=== PATIENT | female | born 1995 | race Caucasian/White ===

== ENCOUNTER → 2017-02-14 | Outpatient (CLI) | payer MEDICAID ==
[~2017-02-14] MED LIST: ALBUTEROL-200 PUFFS/ IH; AMITRIPTYLINE25 MG PO; CEPHALEXIN500 MG PO; CLARITIN 10MG T10 MG PO; CORTISPORIN TC10 ML OT; ESCITALOPRAM 2020 MG PO; FLEXERIL10 MG PO; FLONASE 50 MCG16 GM; HYDROXYZINE PAM25 MG PO; IBUPROFEN800 MG PO; KEFLEX 500MG.500 MG PO; LEVSIN0.125 M1 PO; LORATADINE 10MG10 M1 PO; MACROBID 100MG100 M1 PO; MOTRIN 400MG.400 MG PO; NASONEX0.05 MG/AC NS; PRENATAL PLUS1 TA1 PO; PRILOSEC40 MG PO; QVAR0.04 MG/AC IH; SINGULAIR 10 MG10 MG PO; SINGULAIR10 MG PO; TYLENOL W/CODEI1 TA2 PO; VOLTAREN75 M1 PO; ZITHROMAX TRI-500 M1 PO; ZITHROMAX Z-PA250 M2 PO; ZOFRAN ODT4 MG PO; ZOFRAN4 MG PO
--- NOTE | 2017-02-14 20:13 | RADIOLOGY REPORT PS360 ---
EXAM: LUMBAR SPINE 5 VIEWS HISTORY: LOW BACK PAIN ORDERING PHYSICIAN: Raul Dickson MD PATIENT AGE: 21 years COMPARISON: None FINDINGS: Normal alignment. No fracture or dislocation. No lytic or blastic change. No significant degenerative change. The disc spaces are preserved. IMPRESSION: Negative lumbar spine
== END ==
LOC: RAD 17:37
DX: M54.9 Dorsalgia, unspecified (principal)

== ENCOUNTER 2017-06-03 10:22 | Emergency (ER) | payer MEDICAID ==
[~2017-06-03] VITALS: Ht 157.5 cm; Wt 59.0 kg
[~2017-06-03 10:22] MED LIST changes: +MEDROL 4MG. DOSE4 MG PO; +MINOCYCLINE 10100 MG PO; +PERIDEX OR1 DOSE/473 PO; +PYRIDIUM200 M2 PO; +TRIAMCINOL30 GM/TUBE TP
--- NOTE | 2017-06-03 11:07 | Urgent Treatment Center Report ---
History of Present Issue Date/Time Seen by Provider 06/03/17 1106 Visit Reason Pt arrived:Walked Presenting Problem:PT C/O OF HEAD AND CHEST CONGESTION ALONG WITH SINUS PRESSURE Location if Accident: Onset of symptoms date/time:06/01/1705/10/1600 or onset unknown for: Have you (or family members/close friends) recently traveled outside the [place]? N If Yes, where/when: Have you had exposure to infectious disease within the past month? TB? Other? Specify: Patient state that she has head and chest congestion States that she has been having sinus pain and pressure and it is draining down the back of her throat making her throat sore. States that she is blowing out greenish colored "snot" and having a hacky cough at night States that she took some over the counter medication but it has not helped ALLERGIES Coded Allergies: No Known Allergies (09/01/16) Home Medications Active Scripts CHLORHEXIDINE GLUCONATE (PERIDEX 0.12% ORAL RINSE) 1 DOSE PO TID #1 BOT Prov: 05/23/17 History Medical History General CAD? No Angina: No ID: No Hypertension? No Hyperlipidemia? No CHF? No DVT? No PE? No COPD? No Asthma? Yes Anemia? No GERD? No Gastric ulcers? No GI Bleed? No Hernia? No Thyroid Problems? No Hypothyroidism? No CVA? No Seizures? Yes Diabetes? No Renal Insuffiency? No UTI? No Stones? No BPH? No GB Disease: No Nephritic Syndrome? No Asplenia? No Hepatitis? No Sickle Cell Disease? No Arthritis? No Migraines? Yes Cataracts? No Glaucoma? No MRSA? No HIV? No TB? No Anxiety? No Depression? No Cancer? No More? 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 Respiratory cough Physical Exam Vital Signs Vital Signs Date Time Temp Pulse Resp B/P Pulse O2 O2 Flow FiO2 Ox Delivery Rate 06/03 1043 98.0 98 20 124/83 98 General Appearance Patient appears ill, nose red sitting on exam table Ear, Nose, Throat sinus pain/drainage, nasal congestion, Tenderness noted over frontal sinuses, green drainage noted, throat pink drainage noted Respiratory Status Yes: trachea midline, chest symmetrical, non tender chest. No: respiratory distress. 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 No Departure Departure Time of Disposition 1117 Disposition DC Home or Self Care(routine) Clinical Impression Primary Impression: Sinusitis Qualifiers: Sinusitis location: frontal Chronicity: unspecified Qualified Code: J32.1 - Chronic frontal sinusitis Condition STABLE Referrals Randolph BRIGHT,Raul Mccoy (Family) Patient Instructions DI for Sinusitis, Sinus Headache, Sinusitis Additional Instructions * Monitor Temp. Tylenol and/or Ibuprofen as needed. ER if fever is no less than 101 despite alternating Tylenol and Ibuprofen * Encourage fluids, water, Gatorade, powerade, pedialyte if /toddler/or child * Warm salt water gargles for throat irritation *Warm fluids *Sore throat lozenges *Sleep elevated *humidifier or vaporizer *Flonase 2 sprays each nostril daily but may take 2-3 days to notice improvement with it *Bromfed may cause drowsiness. Know how it effect you or your child. Before driving, caring for small children or sending your child to school Follow up IMMEDIATELY for new or worsening of symptoms OR no noticeable improvement over the next 48-72 hours. 911 immediately for any life threatening symptoms such as chest pain or difficulty breathing Discharge Counseling Counseled pt/family regarding diagnosis, medications/RX, home care, follow up needs Prescriptions Current Visit Scripts Amoxicillin/Potassium Clav (Augmentin 875-125 Tablet) 1 EACH PO BID #14 TAB D-METHORPHAN HB/P-EPD HCL/BPM (Bromfed Dm Cough Syrup) 10 ML PO Q4 #120 SYR Fluticasone Propionate (Flonase 50 Mcg Nasal [place]) 2 SPRAY NA DAILY #1 BOT Methylprednisolone (Medrol Dose Andres) 4 MG PO UD #1 ANDRES TAKE DIRECTED ON PACKAGING at 1111
[2017-06-03] MEDS ORDERED: AUGMENTIN 875-1 EACH PO (11:19)
[2017-06-03] MEDS ORDERED: MEDROL 4MG. DOSE4 MG PO (11:19)
[2017-06-03] MEDS ORDERED: FLONASE 50 MCG16 GM (11:19)
[2017-06-03] MEDS ORDERED: BROMFED DM COU118 ML PO (11:19)
[2017-06-03 11:23] VITALS: BP 124/83
== END 2017-06-03 11:24 | disposition home or self-care (01) ==
LOC: UTC 10:22
DX: J32.1 Chronic frontal sinusitis (principal)

== ENCOUNTER 2017-06-07 15:29 | Emergency (ER) | payer MEDICAID ==
[~2017-06-07] VITALS: Ht 157.5 cm; Wt 65.8 kg
[~2017-06-07 15:29] MED LIST changes: +AUGMENTIN 875-1 EACH PO; +BROMFED DM COU118 ML PO
[2017-06-07 15:46] VITALS: BP 145/88
[2017-06-07] MEDS ORDERED: ZITHROMAX Z PA250 MG PO (15:53)
--- NOTE | 2017-06-07 15:54 | Urgent Treatment Center Report ---
History of Present Issue Date/Time Seen by Provider 06/07/17 4031 Visit Reason Pt arrived:Walked Presenting Problem:CONGESTION AND COUGHFOR A FEW DAYS Location if Accident: Onset of symptoms date/time:/ or onset unknown for:MEDICAL HX UNKNOWN Have you (or family members/close friends) recently traveled outside the [place]? N If Yes, where/when: Have you had exposure to infectious disease within the past month? TB? Other? Specify: Patient states that she is currently on medication States that she was seen and treated for sinus pain and pressure and states that it has now moved into her chest area States that she has been coughing States that sometimes it is productive and sometimes not ALLERGIES Coded Allergies: No Known Allergies (09/01/16) Home Medications Active Scripts Amoxicillin/Potassium Clav (Augmentin 875-125 Tablet) 1 EACH PO BID #14 TAB Prov: 06/03/17 D-METHORPHAN HB/P-EPD HCL/BPM (Bromfed Dm Cough Syrup) 10 ML PO Q4 #120 SYR Prov: 06/03/17 Fluticasone Propionate (Flonase 50 Mcg Nasal [place]) 2 SPRAY NA DAILY #1 BOT Prov: 06/03/17 Methylprednisolone (Medrol Dose Andres) 4 MG PO UD #1 ANDRES Prov: 06/03/17 CHLORHEXIDINE GLUCONATE (PERIDEX 0.12% ORAL RINSE) 1 DOSE PO TID #1 BOT Prov: 05/23/17 History Medical History General CAD? No Angina: No [place]: No Hypertension? No Hyperlipidemia? No CHF? No DVT? No PE? No COPD? No Asthma? Yes Anemia? No GERD? No Gastric ulcers? No GI Bleed? No Hernia? No Thyroid Problems? No Hypothyroidism? No CVA? No Seizures? Yes Diabetes? No Renal Insuffiency? No UTI? No Stones? No BPH? No GB Disease: No Nephritic Syndrome? No Asplenia? No Hepatitis? No Sickle Cell Disease? No Arthritis? No Migraines? Yes Cataracts? No Glaucoma? No MRSA? No HIV? No TB? No Anxiety? No Depression? No Cancer? No More? 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 No: respiratory distress. 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 No Departure Departure Time of Disposition 1551 Disposition DC Home or Self Care(routine) Clinical Impression Primary Impression: Upper respiratory infection Qualifiers: URI type: unspecified URI Qualified Code: J06.9 - Acute upper respiratory infection, unspecified Condition STABLE Referrals Randolph BRIGHT,Raul Mccoy (Family) Additional Instructions Follow up with family doctor Return if needed Stop taking Augmentin and start taking the Azithromycin * Monitor Temp. Tylenol and/or Ibuprofen as needed. ER if fever is no less than 101 despite alternating Tylenol and Ibuprofen * Encourage fluids, water, Gatorade, powerade, pedialyte if infant/toddler/or child * Warm salt water gargles for throat irritation *Warm fluids *Sore throat lozenges *Sleep elevated *humidifier or vaporizer Follow up IMMEDIATELY for new or worsening of symptoms OR no noticeable improvement over the next 48-72 hours. 911 immediately for any life threatening symptoms such as chest pain or difficulty breathing Prescriptions Current Visit Scripts Azithromycin (Zithromycin (Z-ANDRES) 250MG Tab) 250 MG PO DAILY #6 TAB TAKE TWO (2) TABLETS ON DAY 1, THEN ONE (1) TABLET DAY #2 THRU #5 at 1553
== END 2017-06-07 15:58 | disposition home or self-care (01) ==
LOC: UTC 15:29
DX: J06.9 Acute upper respiratory infection, unspecified (principal); F17.210 Nicotine dependence, cigarettes, uncomplicated

== ENCOUNTER 2017-06-08 07:56 | Emergency (ER) | payer MEDICAID ==
[~2017-06-08] VITALS: Ht 157.5 cm; Wt 65.8 kg
[~2017-06-08 07:56] MED LIST changes: +ZITHROMAX Z PA250 MG PO
--- NOTE | 2017-06-08 08:19 | Emergency Room Report ---
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 N Clinical Suspician of Infection? N Mental Status: 1 - Regular (Normal Baseline) Sepsis Risk:Low Sepsis Risk Have you (or family members/close friends) recently traveled outside the [place]? N If Yes, where/when: Have you had exposure to infectious disease within the past month? N TB? Other? Specify: Patient states she ate fries and a hoagie from [employer] last night and a poptart this morning, and has RUQ abdominal pain radiating to her back with nausea. No blood from above or below. States she has been vomiting, but declines anything for nausea or vomiting. No diarrhea. She has had recent congestion for which she has been seen twice at the [facility] and is newly on Zithromax, after stopping Augmentin. She completed a medrol dosepak two days ago. Her cough is better, as is the congestion. She has no fever. Her sister has undergone cholecystectomy. ALLERGIES Coded Allergies: No Known Allergies (09/01/16) Home Medications Active Scripts D-METHORPHAN HB/P-EPD HCL/BPM (Bromfed Dm Cough Syrup) 10 ML PO Q4 #120 SYR Prov: 06/03/17 Fluticasone Propionate (Flonase 50 Mcg Nasal [place]) 2 SPRAY NA DAILY #1 BOT Prov: 06/03/17 Methylprednisolone (Medrol Dose Andres) 4 MG PO UD #1 ANDRES Prov: 06/03/17 Azithromycin (Zithromycin (Z-ANDRES) 250MG Tab) 250 MG PO DAILY #6 TAB Prov: 06/07/17 CHLORHEXIDINE GLUCONATE (PERIDEX 0.12% ORAL RINSE) 1 DOSE PO TID #1 BOT Prov: 05/23/17 History Medical History General CAD? No Angina: No [place]: No Hypertension? No Hyperlipidemia? No CHF? No DVT? No PE? No COPD? No Asthma? Yes Anemia? No GERD? No Gastric ulcers? No GI Bleed? No Hernia? No Thyroid Problems? No Hypothyroidism? No CVA? No Seizures? Yes Diabetes? No Renal Insuffiency? No End Stage Renal Disease? No UTI? No Stones? No BPH? No GB Disease: No Nephritic Syndrome? No Asplenia? No Hepatitis? No Sickle Cell Disease? No Arthritis? No Migraines? Yes Cataracts? No Glaucoma? No MRSA? No HIV? No TB? No Anxiety? No Depression? No Cancer? No More? 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 Respiratory denies no symptoms reported, denies see HPI Gastrointestinal see HPI Physical Exam Vital Signs Vital Signs Date Time Temp Pulse Resp B/P Pulse O2 O2 Flow FiO2 Ox Delivery Rate 06/08 0805 97.8 100 18 129/91 98 General Appearance normal appearance, WD/WN, no apparent distress Eye Exam - bilateral eye normal exam, bilateral eye PERRL, bilateral eye EOMI Neck normal inspection, non-tender, supple, full range of motion Respiratory Status Yes: trachea midline, chest symmetrical, non tender chest. No: respiratory distress, tender on palpation, use of accessory muscles, pain on inspiration, pain on expiration, productive cough, non productive cough. Lung Sounds bilateral: normal breath sounds, lungs clear. Cardiovascular normal exam, regular rate/rhythm, no peripheral edema, no gallop, no JVD, no murmur, no rub, normal peripheral pulses Gastrointestinal normal bowel sounds, normal exam, soft, no organomegaly, no pulsatile mass, no guarding, no rebound (neg Ward's) Back no CVA tenderness, bowel/bladder continent, gait normal Extremities normal range of motion Strength 5 Upper Ext (L), 5 Upper Ext (R), 5 Lower Ext (L), 5 Lower Ext (R) Neurologic alert, normal exam, no motor/sensory deficits, oriented x 3 Glascow Coma Scale Glascow Coma Scale Response Value EYE response: 4 Spontaneously 4 MOTOR response: 6 OBEYS 6 VERBAL response: 5 Oriented & Converses 5 Total 15 Skin intact, normal color, warm/dry Medical Decision Making LABS/Meds/Orders Pt receiving controlled substance in ED? No Results/Orders Laboratory Tests 06/08/17819: Urine Color YELLOW, Urine Appearance SL CLOUDY, Urine pH 6.5, Ur Specific Doyle >= 1.030, Urine Protein NEGATIVE, Urine Ketones NEGATIVE, Urine Blood NEGATIVE, Urine Nitrate NEGATIVE, Urine Bilirubin NEGATIVE, Urine Urobilinogen 0.2, Ur Leukocyte Esterase TRACE H, Urine WBC 3-5, Ur Squamous Epith Cells TNTC , Urine Bacteria 3+, Urine Yeast 1+, Urine Glucose NEGATIVE 06/08/17814: Sodium 140, Potassium 3.3 L, Chloride 105, Carbon Dioxide 27, BUN 9, Creatinine 0.6, Estimated Creat Clear 155, Estimated GFR (MDRD) 127, Glucose 92, Calcium 8.8, Total Bilirubin 0.3, AST 11 L, ALT 23, Alkaline Phosphatase 101, Total Protein 7.0, Albumin 3.8, Globulin 3.2, Albumin/Globulin Ratio 1.2, Lipase 110, WBC 9.0, RBC 4.76, Hgb 13.6, Hct 39.8, MCV 83.5, RDW 12.5, Plt Count 286, MPV 8.1, Gran % 69.7, Gran # 6.2, Lymphocytes % 21.2, Monocytes % 5.7, Eosinophils % 2.8, Basophils % 0.6, Lymphocytes # 1.9, Monocytes # 0.5, Eosinophils # 0.3, Basophils # 0.1, PUBS MCHC 34.2, MCH 28.6 Orders Procedure Date/time Status CULTURE, URINE 06/08 820 Active LIPASE 06/08 815 Complete CBC WITH AUTO DIFF 06/08 815 Complete CHEM 12 PROFILE 06/08 815 Complete URINALYSIS/COMPLETE 06/08 811 Complete URINE 06/08 811 Complete Departure Departure Time of Disposition 920 Disposition DC Home or Self Care(routine) Clinical Impression Primary Impression: Abdominal pain Qualifiers: Abdominal location: right upper quadrant Qualified Code: R10.11 - Right upper quadrant pain Condition STABLE Referrals Randolph BRIGHT,Raul Mccoy (Family) Patient Instructions Acute Abdominal Pain Additional Instructions Recommend low fat diet; see Dr. Dickson for follow up recheck in one to three days; clear liquids overnight other than recommend eating a few crackers when dosing the Zithromax; recommend a few spoonfuls of yogurt (check that it has live cultures) several times daily for the next few weeks due to multiple antibiotics and steroids, which can remove the friendly bacteria from the gut. ED Critical Care Critical Care No at 0951
--- NOTE | 2017-06-08 08:19 | Emergency Room Report ---
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 N Clinical Suspician of Infection? N Mental Status: 1 - Regular (Normal Baseline) Sepsis Risk:Low Sepsis Risk Have you (or family members/close friends) recently traveled outside the [place]? N If Yes, where/when: Have you had exposure to infectious disease within the past month? N TB? Other? Specify: Patient states she ate fries and a hoagie from [employer] last night and a poptart this morning, and has RUQ abdominal pain radiating to her back with nausea. No blood from above or below. States she has been vomiting, but declines anything for nausea or vomiting. No diarrhea. She has had recent congestion for which she has been seen twice at the [facility] and is newly on Zithromax, after stopping Augmentin. She completed a medrol dosepak two days ago. Her cough is better, as is the congestion. She has no fever. Her sister has undergone cholecystectomy. ALLERGIES Coded Allergies: No Known Allergies (09/01/16) Home Medications Active Scripts D-METHORPHAN HB/P-EPD HCL/BPM (Bromfed Dm Cough Syrup) 10 ML PO Q4 #120 SYR Prov: 06/03/17 Fluticasone Propionate (Flonase 50 Mcg Nasal [place]) 2 SPRAY NA DAILY #1 BOT Prov: 06/03/17 Methylprednisolone (Medrol Dose Andres) 4 MG PO UD #1 ANDRES Prov: 06/03/17 Azithromycin (Zithromycin (Z-ANDRES) 250MG Tab) 250 MG PO DAILY #6 TAB Prov: 06/07/17 CHLORHEXIDINE GLUCONATE (PERIDEX 0.12% ORAL RINSE) 1 DOSE PO TID #1 BOT Prov: 05/23/17 History Medical History General CAD? No Angina: No [place]: No Hypertension? No Hyperlipidemia? No CHF? No DVT? No PE? No COPD? No Asthma? Yes Anemia? No GERD? No Gastric ulcers? No GI Bleed? No Hernia? No Thyroid Problems? No Hypothyroidism? No CVA? No Seizures? Yes Diabetes? No Renal Insuffiency? No End Stage Renal Disease? No UTI? No Stones? No BPH? No GB Disease: No Nephritic Syndrome? No Asplenia? No Hepatitis? No Sickle Cell Disease? No Arthritis? No Migraines? Yes Cataracts? No Glaucoma? No MRSA? No HIV? No TB? No Anxiety? No Depression? No Cancer? No More? 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 Respiratory denies no symptoms reported, denies see HPI Gastrointestinal see HPI Physical Exam Vital Signs Vital Signs Date Time Temp Pulse Resp B/P Pulse O2 O2 Flow FiO2 Ox Delivery Rate 06/08 0805 97.8 100 18 129/91 98 General Appearance normal appearance, WD/WN, no apparent distress Eye Exam - bilateral eye normal exam, bilateral eye PERRL, bilateral eye EOMI Neck normal inspection, non-tender, supple, full range of motion Respiratory Status Yes: trachea midline, chest symmetrical, non tender chest. No: respiratory distress, tender on palpation, use of accessory muscles, pain on inspiration, pain on expiration, productive cough, non productive cough. Lung Sounds bilateral: normal breath sounds, lungs clear. Cardiovascular normal exam, regular rate/rhythm, no peripheral edema, no gallop, no JVD, no murmur, no rub, normal peripheral pulses Gastrointestinal normal bowel sounds, normal exam, soft, no organomegaly, no pulsatile mass, no guarding, no rebound (neg Ward's) Back no CVA tenderness, bowel/bladder continent, gait normal Extremities normal range of motion Strength 5 Upper Ext (L), 5 Upper Ext (R), 5 Lower Ext (L), 5 Lower Ext (R) Neurologic alert, normal exam, no motor/sensory deficits, oriented x 3 Glascow Coma Scale Glascow Coma Scale Response Value EYE response: 4 Spontaneously 4 MOTOR response: 6 OBEYS 6 VERBAL response: 5 Oriented & Converses 5 Total 15 Skin intact, normal color, warm/dry Medical Decision Making LABS/Meds/Orders Pt receiving controlled substance in ED? No Results/Orders Laboratory Tests 06/08/17819: Urine Color YELLOW, Urine Appearance SL CLOUDY, Urine pH 6.5, Ur Specific [place] >= 1.030, Urine Protein NEGATIVE, Urine Ketones NEGATIVE, Urine Blood NEGATIVE, Urine Nitrate NEGATIVE, Urine Bilirubin NEGATIVE, Urine Urobilinogen 0.2, Ur Leukocyte Esterase TRACE H, Urine WBC 3-5, Ur Squamous Epith Cells TNTC , Urine Bacteria 3+, Urine Yeast 1+, Urine Glucose NEGATIVE 06/08/17814: Sodium 140, Potassium 3.3 L, Chloride 105, Carbon Dioxide 27, BUN 9, Creatinine 0.6, Estimated Creat Clear 155, Estimated GFR (MDRD) 127, Glucose 92, Calcium 8.8, Total Bilirubin 0.3, AST 11 L, ALT 23, Alkaline Phosphatase 101, Total Protein 7.0, Albumin 3.8, Globulin 3.2, Albumin/Globulin Ratio 1.2, Lipase 110, WBC 9.0, RBC 4.76, Hgb 13.6, Hct 39.8, MCV 83.5, RDW 12.5, Plt Count 286, MPV 8.1, Gran % 69.7, Gran # 6.2, Lymphocytes % 21.2, Monocytes % 5.7, Eosinophils % 2.8, Basophils % 0.6, Lymphocytes # 1.9, Monocytes # 0.5, Eosinophils # 0.3, Basophils # 0.1, PUBS MCHC 34.2, MCH 28.6 Orders Procedure Date/time Status CULTURE, URINE 06/08 820 Active LIPASE 06/08 815 Complete CBC WITH AUTO DIFF 06/08 815 Complete CHEM 12 PROFILE 06/08 815 Complete URINALYSIS/COMPLETE 06/08 811 Complete URINE 06/08 811 Complete Departure Departure Time of Disposition 920 Disposition DC Home or Self Care(routine) Clinical Impression Primary Impression: Abdominal pain Qualifiers: Abdominal location: right upper quadrant Qualified Code: R10.11 - Right upper quadrant pain Condition STABLE Referrals Randolph BRIGHT,Raul Mccoy (Family) Patient Instructions Acute Abdominal Pain Additional Instructions Recommend low fat diet; see Dr. Dickson for follow up recheck in one to three days; clear liquids overnight other than recommend eating a few crackers when dosing the Zithromax; recommend a few spoonfuls of yogurt (check that it has live cultures) several times daily for the next few weeks due to multiple antibiotics and steroids, which can remove the friendly bacteria from the gut. ED Critical Care Critical Care No at 0961
[2017-06-08 08:42] LABS: HEMOGLOBIN 13.6 g/dL (12.2-16.2); LYMPH # 1.9 K/mm3 (0.7-4.5); LYMPH % 21.2 % (10-50.0)
[2017-06-08 08:44] LABS: URINE BILIRUBIN - DIPSTICK NEGATIVE (NEG); URINE BLOOD NEGATIVE (NEG)
[2017-06-08 09:04] LABS: URINE SQUAMOUS CELLS TNTC #/hpf (0-5)
[2017-06-08 09:27] VITALS: BP 128/90
== END 2017-06-08 09:29 | disposition home or self-care (01) ==
LOC: ER 07:56
PROVIDERS: Emergency Medicine
DX: R10.11 Right upper quadrant pain (principal)

== ENCOUNTER 2017-06-27 09:06 | Emergency (ER) | payer OTHER, MEDICAID ==
[~2017-06-27] VITALS: Ht 157.5 cm; Wt 68.0 kg
--- NOTE | 2017-06-27 09:38 | Urgent Treatment Center Report ---
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 N If Yes, where/when: Have you had exposure to infectious disease within the past month? TB? Other? Specify: Here due to work related injury. 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 pain worse with any ROM left shoulder, elbow, wrist or even digits. Occasional "numb or more burning like feeling" throughout left arm. Denies pain in any other part of UE "just when I move it the pain in my shoulder gets worse". Tylenol immediately after incident occurred. Pain currently 5-6/10 left anterior and posterior shoulder. Source patient Exam Limitations clinical condition (pain) ALLERGIES Coded Allergies: No Known Allergies (09/01/16) History Medical History General CAD? No Angina: No [place]: No Hypertension? No Hyperlipidemia? No CHF? No DVT? No PE? No COPD? No Asthma? Yes Anemia? No GERD? No Gastric ulcers? No GI Bleed? No Hernia? No Thyroid Problems? No Hypothyroidism? No CVA? No Seizures? Yes Diabetes? No Renal Insuffiency? No UTI? No Stones? No BPH? No GB Disease: No Nephritic Syndrome? No Asplenia? No Hepatitis? No Sickle Cell Disease? No Arthritis? No Migraines? Yes Cataracts? No Glaucoma? No MRSA? No HIV? No TB? No Anxiety? No Depression? No Cancer? No More? 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 Cardiovascular no peripheral edema Peripheral Pulses Pulses normal Yes (radial) Extremities normal inspection (left shoulder/chest/back), minimal ROM left shoulder complicating all special tests, tenderness throughout anterior and posterior shoulder as well as anterolateral portion of acromion Strength 3 Upper Ext (L), 5 Upper Ext (R) Neurologic alert, no motor/sensory deficits, oriented x 3 Skin intact, normal color, warm/dry Medical Decision Making LABS/Meds/Orders Pt receiving controlled substance in ED? No Results/Orders Current Medication Orders Sig/Stephanie Start time Last Medication Dose Route Stop Time Status Admin Ketorolac 0 .STK-MED ONE 06/27 946 DC Tromethamine .ROUTE Ketorolac 60 MG ONCE ONE 06/27 945 DC 06/27 Tromethamine IM 06/27 946 0950 Orders Procedure Date/time Status STABILIZE JOINT 06/27 1017 Active [id number] VIEWS 06/27 929 Active XRAY/CT/US XRAY/CT/US XRAY shoulder (left) XR interpretation by reviewed by me (w/ Dr. Medina, ARELIS BRIGHT) Xray Results no fracture or dislocation, no ac seperation; no acute finding Progress [facility] Progress Notes Date 06/27/17 Time 1015 Comment Pain improving. down to 4/10. "It is helping slowly". Still unable to perform enough ROM left shoulder for special tests. Rvwd POC and importance of FU. Departure Departure Time of Disposition 1013 Disposition DC Home or Self Care(routine) Clinical Impression Primary Impression: Sprain of left shoulder Qualifiers: Encounter type: initial encounter Shoulder sprain type: unspecified sprain Qualified Code: S43.402A - Unspecified sprain of left shoulder joint, initial encounter Condition STABLE Referrals Randolph BRIGHT,Raul Mccoy (Family) Follow up appt on Sunday at 1:15pm Patient Instructions DI for Shoulder Sprain, How To Perform RICE (Rest, Ice, Compress, Elevate), How to Use a Sling Additional Instructions * ice 15-20 mins 3-4 times a day *sling support. Perform ROM as tolerated. * Elevate as discussed as much as possible to help reduce swelling and therefore , pain * Remember you had a toradol shot, similiar anti-inflammatory in clinic. * No additional anti-inflammatories like motrin, aleve, advil with the amount of prescribed naproxen. You CAN still take Tylenol every 4 hours as needed if you need something more for pain. Discharge Counseling Counseled pt/family regarding diagnosis, test results, medications/RX, home care, follow up needs Prescriptions Current Visit Scripts NAPROXEN (NAPROSYN 500MG TAB) 500 MG PO BID #14 TAB take with food Comments work restrictions completed. No driving, lifting, pulling/pushing/grasping w/ LUE. All to be reevaluated at follow-up on 06/29/17 at 1030
--- NOTE | 2017-06-27 09:38 | Urgent Treatment Center Report ---
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 N If Yes, where/when: Have you had exposure to infectious disease within the past month? TB? Other? Specify: Here due to work related injury. 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 pain worse with any ROM left shoulder, elbow, wrist or even digits. Occasional "numb or more burning like feeling" throughout left arm. Denies pain in any other part of UE "just when I move it the pain in my shoulder gets worse". Tylenol immediately after incident occurred. Pain currently 5-6/10 left anterior and posterior shoulder. Source patient Exam Limitations clinical condition (pain) ALLERGIES Coded Allergies: No Known Allergies (09/01/16) History Medical History General CAD? No Angina: No [place]: No Hypertension? No Hyperlipidemia? No CHF? No DVT? No PE? No COPD? No Asthma? Yes Anemia? No GERD? No Gastric ulcers? No GI Bleed? No Hernia? No Thyroid Problems? No Hypothyroidism? No CVA? No Seizures? Yes Diabetes? No Renal Insuffiency? No UTI? No Stones? No BPH? No GB Disease: No Nephritic Syndrome? No Asplenia? No Hepatitis? No Sickle Cell Disease? No Arthritis? No Migraines? Yes Cataracts? No Glaucoma? No MRSA? No HIV? No TB? No Anxiety? No Depression? No Cancer? No More? 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 Cardiovascular no peripheral edema Peripheral Pulses Pulses normal Yes (radial) Extremities normal inspection (left shoulder/chest/back), minimal ROM left shoulder complicating all special tests, tenderness throughout anterior and posterior shoulder as well as anterolateral portion of acromion Strength 3 Upper Ext (L), 5 Upper Ext (R) Neurologic alert, no motor/sensory deficits, oriented x 3 Skin intact, normal color, warm/dry Medical Decision Making LABS/Meds/Orders Pt receiving controlled substance in ED? No Results/Orders Current Medication Orders Sig/Stephanie Start time Last Medication Dose Route Stop Time Status Admin Ketorolac 0 .STK-MED ONE 06/27 946 DC Tromethamine .ROUTE Ketorolac 60 MG ONCE ONE 06/27 945 DC 06/27 Tromethamine IM 06/27 946 0950 Orders Procedure Date/time Status STABILIZE JOINT 06/27 1017 Active [id number] VIEWS 06/27 929 Active XRAY/CT/US XRAY/CT/US XRAY shoulder (left) XR interpretation by reviewed by me (w/ Dr. Medina, ARELIS BRIGHT) Xray Results no fracture or dislocation, no ac seperation; no acute finding Progress [facility] Progress Notes Date 06/27/17 Time 1015 Comment Pain improving. down to 4/10. "It is helping slowly". Still unable to perform enough ROM left shoulder for special tests. Rvwd POC and importance of FU. Departure Departure Time of Disposition 1013 Disposition DC Home or Self Care(routine) Clinical Impression Primary Impression: Sprain of left shoulder Qualifiers: Encounter type: initial encounter Shoulder sprain type: unspecified sprain Qualified Code: S43.402A - Unspecified sprain of left shoulder joint, initial encounter Condition STABLE Referrals Randolph BRIGHT,Raul Mccoy (Family) Follow up appt on Sunday at 1:15pm Patient Instructions DI for Shoulder Sprain, How To Perform RICE (Rest, Ice, Compress, Elevate), How to Use a Sling Additional Instructions * ice 15-20 mins 3-4 times a day *sling support. Perform ROM as tolerated. * Elevate as discussed as much as possible to help reduce swelling and therefore , pain * Remember you had a toradol shot, similiar anti-inflammatory in clinic. * No additional anti-inflammatories like motrin, aleve, advil with the amount of prescribed naproxen. You CAN still take Tylenol every 4 hours as needed if you need something more for pain. Discharge Counseling Counseled pt/family regarding diagnosis, test results, medications/RX, home care, follow up needs Prescriptions Current Visit Scripts NAPROXEN (NAPROSYN 500MG TAB) 500 MG PO BID #14 TAB take with food Comments work restrictions completed. No driving, lifting, pulling/pushing/grasping w/ LUE. All to be reevaluated at follow-up on 06/29/17 at 1030
[2017-06-27] MEDS ORDERED: NAPROSYN 500MG500 MG PO (10:19)
[2017-06-27 10:31] VITALS: BP 117/80
--- NOTE | 2017-06-27 11:32 | RADIOLOGY REPORT PS360 ---
[id number] VIEWS COMPARISON: None HISTORY: [place] a popping sensation in left shoulder TECHNIQUE: 3 views left shoulder FINDINGS: The clavicle is intact and the AC joint appears normal. Humeral head and glenoid are normal and the no soft tissue calcifications. There is no subacromial stenosis. IMPRESSION: Negative left shoulder
--- OUTSIDE RECORDS SUMMARY | 2017-07-05 13:44 | External Medical Summary Rpt | CCD ---
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 NAZIA HE 0 UG OF N- FR CO CE EY D NT A #3 ER TA BL ET NA 68 04 04 25 8 NE 10 PO Ac KS 46 -2 -2 .0 WP 15 RN ti OX 20 2- 2- 00 OR 71 OY ve EN 19 20 20 T [address] MANDUJANO 50 5 UG OF 0 FR MG CE EY NT A TA ER BL ET 00 08 01 11 28 28 DE 63 KE Ac 09 -1 -0 .0 AN 98 ET ti 35 0- 3- 00 S 66 ON ve 66 20 20 PH 0 15 10 11 AR CA 8 MA SE CY Y R IN C 00 08 11 11 28 28 DE 63 KE Ac 09 -1 -2 .0 AN 98 ET ti 35 0- 4- 00 S 66 ON ve 66 20 20 PH 0 15 10 10 AR CA 8 MA SE CY Y R IN C 00 08 10 11 28 28 DE 63 KE Ac 09 -1 -2 .0 AN 98 ET ti 35 0- 1- 00 S 66 ON ve 66 20 20 PH 0 15 10 10 AR CA 8 MA SE CY Y R IN C SM 49 08 10 2 30 30 DE 63 KE Ac 34 -1 -1 .0 AN 98 ET ti IB 80 0- 2- 00 S 64 ON ve UP 70 20 20 PH 7 RO 61 10 10 AR CA FE 0 MA SE N CY Y 20 R 0 IN MG C TA BL ET AM 00 08 10 4 30 30 DE 63 KE Ac IT 60 -1 -1 .0 AN 98 ET ti RI 32 0- 2- 00 S 64 ON ve PT 21 20 20 PH 8 YL 33 10 10 AR CA IN 2 MA SE E CY Y HC R L IN 25 C MG TA B KS 37 08 10 4 30 30 DE 63 KE Ac IL 00 -1 -1 .0 AN 98 ET ti OS 00 0- 2- 00 S 64 ON ve EC 45 20 20 PH 9 50 10 10 AR CA OT 3 MA SE C CY Y 20 R .6 IN C MG TA BL ET NA 00 08 10 2 17 30 DE 63 KE Ac SO 08 -1 -1 .0 AN 98 ET ti NE 51 0- 2- 00 S 65 ON ve X 28 20 20 PH 0 50 80 10 10 AR CA 1 MA SE MC CY Y G R NA IN SA C L SP RA Y LO 45 08 10 4 30 30 DE 63 KE Ac RA 80 -1 -1 .0 AN 98 ET ti TA 20 0- 2- 00 S 65 ON ve DI 65 20 20 PH 1 NE 08 10 10 AR CA 7 MA SE 10 CY Y R MG IN C TA BL ET SI 00 08 10 4 30 30 DE 63 KE Ac NG 00 -1 -1 .0 AN 98 ET ti UL 60 0- 2- 00 S 65 ON ve AI 27 20 20 PH 2 R 53 10 10 AR CA 5 1 MA SE MG CY Y R TA IN BL C ET CH EW 00 08 10 4 0. 30 DE 63 KE Ac 08 -1 24 AN 98 ET ti 51 0- 2- 0 S 65 ON ve 34 20 20 PH 3 10 10 10 AR CA 3 MA SE CY Y R IN C 59 08 10 4 8. 30 DE 63 KE Ac 31 1 -1 50 AN 98 ET ti 00 1- 2- 0 S 67 ON ve 57 20 20 PH 5 92 10 10 AR CA 0 MA SE CY Y R IN C 00 08 09 11 28 28 DE 63 KE Ac 09 -1 -2 .0 AN 98 ET ti 35 0- 5- 00 S 66 ON ve 66 20 20 PH 0 15 10 10 AR CA 8 MA SE CY Y R IN C CE 00 08 08 0 20 5 DE 63 FA Ac PH 09 -2 -2 .0 AN 99 RA ti AL 33 0- 0- 00 S 02 GA ve EX 14 20 20 PH 1 SS IN 70 10 10 AR O 5 MA DE 50 CY 0 N MG IN C CA PS UL E 00 08 08 11 28 28 DE 63 KE Ac 09 -1 .0 AN 98 ET ti 35 0- 1- 00 S 66 ON ve 66 20 20 PH 0 15 10 10 AR CA 8 MA SE CY Y R IN C 59 08 08 4 8. 30 DE 63 KE Ac 31 -1 50 AN 98 ET ti 00 1- 1- 0 S 67 ON ve 57 20 20 PH 5 92 10 10 AR CA 0 MA SE CY Y R IN C 00 08 08 4 0. 30 DE 63 KE Ac 08 -1 24 AN 98 ET ti 51 0- 0- 0 S 65 ON ve 34 20 20 PH 3 10 10 10 AR CA 3 MA SE CY Y R IN C SM 49 08 08 2 30 30 DE 63 KE Ac 34 -1 -1 .0 AN 98 ET ti IB 80 0- 0- 00 S 64 ON ve UP 70 20 20 PH 7 RO 61 10 10 AR CA FE 0 MA SE N CY Y 20 R 0 IN MG C TA BL ET AM 00 08 08 4 30 30 DE 63 KE Ac IT 60 -1 -1 .0 AN 98 ET ti RI 32 0- 0- 00 S 64 ON ve PT 21 20 20 PH 8 YL 33 10 10 AR CA IN 2 MA SE E CY Y HC R L IN 25 C MG TA B KS 37 08 08 4 30 30 DE 63 KE Ac IL 00 -1 -1 .0 AN 98 ET ti OS 00 0- 0- 00 S 64 ON ve EC 45 20 20 PH 9 50 10 10 AR CA OT 3 MA SE C CY Y 20 R .6 IN C MG TA BL ET NA 00 08 08 2 17 30 DE 63 KE Ac SO 08 -1 -1 .0 AN 98 ET ti NE 51 0- 0- 00 S 65 ON ve X 28 20 20 PH 0 50 80 10 10 AR CA 1 MA SE MC CY Y G R NA IN SA C L SP RA Y LO 45 08 08 4 30 30 DE 63 KE Ac RA 80 -1 -1 .0 AN 98 ET ti TA 20 0- 0- 00 S 65 ON ve DI 65 20 20 PH 1 NE 08 10 10 AR CA 7 MA SE 10 CY Y R MG IN C TA BL ET SI 00 08 08 4 30 30 DE 63 KE Ac NG 00 -1 -1 .0 AN 98 ET ti UL 60 0- 0- 00 S 65 ON ve AI 27 20 20 PH 2 R 53 10 10 AR CA 5 1 MA SE MG CY Y R TA IN BL C ET CH EW TR 00 09 07 11 28 28 DE 63 KE Ac I- 55 -2 -3 .0 AN 84 ET ti SP 59 1- 1- 00 S 79 ON ve RI 01 20 20 PH 7 NT 85 09 10 AR CA EC 8 MA SE CY Y TA R BL IN ET C TR 00 09 06 11 28 28 DE 63 KE Ac I- 55 -2 -3 .0 AN 84 ET ti SP 59 1- 0- 00 S 79 ON ve RI 01 20 20 PH 7 NT 85 09 10 AR CA EC 8 MA SE CY Y TA R BL IN ET C TR 00 09 06 11 28 28 DE 63 KE Ac I- 55 -2 -0 .0 AN 84 ET ti SP 59 1- 4- 00 S 79 ON ve RI 01 20 20 PH 7 NT 85 09 10 AR CA EC 8 MA SE CY Y TA R BL IN ET C TR 00 09 05 11 28 28 DE 63 KE Ac I- 55 -2 -0 .0 AN 84 ET ti SP 59 1- 8- 00 S 79 ON ve RI 01 20 20 PH 7 NT 85 09 10 AR CA EC 8 MA SE CY Y TA R BL IN ET C NA 00 02 04 1 25 6 WA 74 PO Ac KS 09 -0 -1 .0 L- 51 RN ti OX 30 1- 6- 00 MA 36 OY ve EN 14 20 20 RT 8 70 10 10 GE 25 1 PH OF 0 AR FR MG MA EY CY A TA # BL ET 10 15 69 TR 00 09 04 11 28 28 DE 63 KE Ac I- 55 -2 -0 .0 AN 84 ET ti SP 59 1- 9- 00 S 79 ON ve RI 01 20 20 PH 7 NT 85 09 10 AR CA EC 8 MA SE CY Y TA R BL IN ET C TR 00 09 03 11 28 28 DE 63 KE Ac I- 55 -2 -1 .0 AN 84 ET ti SP 59 1- 3- 00 S 79 ON ve RI 01 20 20 PH 7 NT 85 09 10 AR CA EC 8 MA SE CY Y TA R BL IN ET C TR 00 09 02 05 28 28 DE 63 KE Ac I- 55 -2 -2 .0 AN 84 ET ti SP 59 1- 6- 00 S 79 ON ve RI 01 20 20 PH 7 NT 85 09 10 AR CA EC 8 MA SE CY Y TA R BL ET PE 45 02 02 00 60 1 DE 63 KE Ac RM 80 -0 -2 .0 AN 91 ET ti ET 20 8- 6- 00 S 10 ON ve HR 26 20 20 PH 0 IN 93 10 10 AR CA 7 MA SE 5% CY Y R CR EA M NA 00 02 02 00 25 6 WA 74 PO Ac KS 09 -0 -1 .0 L- 51 RN ti OX 30 1- 1- 00 MA 36 OY ve EN 14 20 20 RT 8 70 10 10 GE 25 1 PH OF 0 AR FR MG MA EY CY A TA BL #1 ET 56 9 TR 00 09 01 04 28 28 DE 63 KE Ac I- 55 -2 -2 .0 AN 84 ET ti SP 59 1- 8- 00 S 79 ON ve RI 01 20 20 PH 7 NT 85 09 10 AR CA EC 8 MA SE CY Y TA R BL ET TR 00 09 12 03 28 28 DE 63 KE Ac I- 55 -2 -3 .0 AN 84 ET ti SP 59 1- 1- 00 S 79 ON ve RI 01 20 20 PH 7 NT 85 09 09 AR CA EC 8 MA SE CY Y TA R BL ET TR 00 09 12 02 28 28 DE 63 KE Ac I- 55 -2 -0 .0 AN 84 ET ti SP 59 1- 3- 00 S 79 ON ve RI 01 20 20 PH 7 NT 85 09 09 AR CA EC 8 MA SE CY Y TA R BL ET TR 00 09 11 01 28 28 DE 63 KE Ac I- 55 -2 -0 .0 AN 84 ET ti SP 59 1- 5- 00 S 79 ON ve RI 01 20 20 PH 7 NT 85 09 09 AR CA EC 8 MA SE CY Y TA R BL ET TR 00 09 10 00 28 28 DE 63 KE Ac I- 55 -2 -0 .0 AN 84 ET ti SP 59 1- 8- 00 S 79 ON ve RI 01 20 20 PH 7 NT 85 09 09 AR CA EC 8 MA SE CY Y TA R BL ET NA 00 09 09 00 20 5 DE 63 CH Ac KS 09 -1 -2 .0 AN 84 RI ti OX 30 2- 4- [address] ve EN 14 20 20 PH 7 MA 70 09 09 AR S 25 1 MA WI 0 CY LL MG IA M TA A BL ET AC 00 04 04 00 16 16 DE 40 PO Ac ET 09 -1 -2 .0 AN 58 RN ti AM 30 2- 3- 00 S 55 OY ve IN 15 20 20 PH 4 OP 01 09 09 AR GE HE 0 MA OF N- CY FR CO EY D A #3 TA BL ET NA 00 03 04 01 30 8 DE 63 PO Ac KS 09 -0 -0 .0 AN 77 RN ti OX 30 6- 9- 00 S 26 OY ve EN 14 20 20 PH 3 90 09 09 AR GE 50 5 MA OF 0 CY FR MG EY A TA BL ET CH 00 03 03 00 90 3 DE 40 PO Ac ER 60 -0 -1 .0 AN 58 RN ti AT 31 6- 2- 00 S 32 OY ve US 07 20 20 PH 3 SI 55 09 09 AR GE N 4 MA OF AC CY FR EY SY A RU P NA 00 03 03 00 30 8 DE 63 PO Ac KS 09 -0 -1 .0 AN 77 RN ti OX 30 6- 2- 00 S 26 OY ve EN 14 20 20 PH 3 90 09 09 AR GE 50 5 MA OF 0 CY FR MG EY A TA BL ET 00 10 10 00 14 7 DE 63 No Ac 90 -0 -2 .0 AN 71 t ti 42 7- 3- 00 S 73 Av ve 72 20 20 PH 3 ai 54 08 08 AR la 0 MA bl CY e 00 09 09 00 14 7 WA 27 No Ac 52 -0 -1 .0 LG 16 t ti 71 4- 1- 00 RE 46 Av ve 44 20 20 EN 5 ai 30 08 08 # la 5 bl 07 e 34 6 58 07 07 00 1. 1 CH 63 KS Ac 17 -1 -1 00 LD 72 AG ti 70 1- 7- 0 RN 64 ER ve 36 20 20 S 4 32 08 08 HO JE 2 SP RE MY ME D D CT R AM 00 07 07 00 15 2 NE 92 No Ac OX 78 -0 -1 0. WP 40 t ti IC 16 7- 7- 00 OR 04 Av ve IL 04 20 20 0 T ai LI [address] la N 5 UG bl 25 e 0 CE MG NT /5 ER ML DUMONT SP 00 07 07 00 15 2 CH 40 KS Ac 47 -1 -1 0. LD 32 AG ti 21 1- 7- 00 RN 56 ER ve 41 20 20 0 S 4 91 08 08 HO JE 6 SP RE MY ME D D CT R 17 05 07 01 34 31 NE 91 No Ac 27 -1 -0 .0 WP 91 t ti 00 2- 3- 00 OR 75 Av ve 72 20 20 T ai [address] la 1 UG bl e CE NT ER 49 04 07 01 40 10 NE 91 No Ac 88 -2 -0 .0 WP 78 t ti 40 9- 3- 00 OR 34 Av ve 77 20 20 T ai [address] la 5 UG bl e CE NT ER AM 00 04 07 01 30 30 NE 91 No Ac IT 78 -2 -0 .0 WP 78 t ti RI 11 9- 3- 00 OR 35 Av ve PT 48 20 20 T ai YL [address] carlotta IN 0 UG bl E e HC CE L NT 25 ER MG TA B NA 00 04 07 01 17 30 NE 91 No Ac SO 08 -2 -0 .0 WP 78 t ti NE 51 9- 3- 00 OR 33 Av ve X 28 20 20 T ai [address] la 1 UG bl MC e G CE NA NT SA ER L SP RA Y SI 00 05 07 01 30 30 NE 91 No Ac NG 00 -1 -0 .0 WP 91 t ti UL 60 2- 3- 00 OR 71 Av ve AI 27 20 20 T ai R [address] la 5 1 UG bl MG e CE TA NT BL ER ET CH EW XO 63 04 07 01 15 25 NE 91 No Ac PE 40 -2 -0 .0 WP 78 t ti NE 20 9- 3- 00 OR 32 Av ve X 51 20 20 T ai HF [address] carlotta A 1 UG bl 45 e CE MC NT G ER IN CAZARES LE R KS 37 05 07 01 28 28 NE 91 No Ac IL 00 -1 -0 .0 WP 91 t ti OS 00 2- 3- 00 OR 76 Av ve EC 45 20 20 T ai [address] carlotta OT 3 UG bl C e 20 CE .6 NT ER MG TA BL ET 00 05 07 01 30 30 NE 91 No Ac 06 -1 -0 .0 WP 91 t ti 76 2- 3- 00 OR 77 Av ve 07 20 20 T ai [address] la 0 UG bl e CE NT ER 17 05 05 00 34 31 NE 91 No Ac 27 -1 -2 .0 WP 91 t ti 00 2- 2- 00 OR 75 Av ve 72 20 20 T ai [address] la 1 UG bl e CE NT ER 00 05 05 00 30 30 NE 91 No Ac 06 -1 -2 .0 WP 91 t ti 76 2- 2- 00 OR 77 Av ve 07 20 20 T ai [address] la 0 UG bl e CE NT ER 00 05 05 00 0. 30 NE 91 No Ac MA 08 -1 -2 24 WP 91 t ti NE 51 2- 2- 0 OR 72 Av ve X 34 20 20 T ai TW [address] laguerre IS 2 UG bl TH e AL CE ER NT ER 22 0 MC G #6 0 KS 37 05 05 00 28 28 NE 91 No Ac IL 00 -1 -2 .0 WP 91 t ti OS 00 2- 2- 00 OR 76 Av ve EC 45 20 20 T ai [address] carlotta OT 3 UG bl C e 20 CE .6 NT ER MG TA BL ET 00 05 05 00 20 10 NE 91 No Ac 67 -1 -2 .0 WP 93 t ti 70 4- 2- 00 OR 72 Av ve 78 20 20 T ai [address] la 1 UG bl e CE NT ER SI 00 05 05 00 30 30 NE 91 No Ac NG 00 -1 -2 .0 WP 91 t ti UL 60 2- 2- 00 OR 71 Av ve AI 27 20 20 T ai R [address] carlotta 5 1 UG bl MG e CE TA NT BL ER ET CH EW 59 04 05 00 7. 30 NE 91 No Ac 31 -2 -0 29 WP 78 t ti 00 9- 8- 9 OR 31 Av ve 17 20 20 T ai [address] la 0 UG bl e CE NT ER 49 04 05 00 40 10 NE 91 No Ac 88 -2 -0 .0 WP 78 t ti 40 9- 8- 00 OR 34 Av ve 77 20 20 T ai [address] laguerre 5 UG bl e CE NT ER AM 00 04 05 00 30 30 NE 91 No Ac IT 78 -2 -0 .0 WP 78 t ti RI 11 9- 8- 00 OR 35 Av ve PT 48 20 20 T ai YL [address] laguerre IN 0 UG bl E e HC CE L NT 25 ER MG TA B XO 63 04 05 00 15 25 NE 91 No Ac PE 40 -2 -0 .0 WP 78 t ti NE 20 9- 8- 00 OR 32 Av ve X 51 20 20 T ai HF [address] laguerre A 1 UG bl 45 e CE MC NT G ER IN CAZARES LE R NA 00 04 05 00 17 30 NE 91 No Ac SO 08 -2 -0 .0 WP 78 t ti NE 51 9- 8- 00 OR 33 Av ve X 28 20 20 T ai [address] laguerre 1 UG bl MC e G CE NA NT SA ER L SP RA Y AM 00 04 05 00 30 10 WA 26 No Ac OX 09 -2 -0 .0 LG 00 t ti IC 33 6- 8- 00 RE 37 Av ve IL 10 20 20 EN 3 ai LI 90 08 08 # la N 5 bl 50 07 e 0 34 MG 6 CA PS UL E NA 00 04 04 03 17 25 NE 88 No Ac SO 08 -1 -1 .0 WP 39 t ti NE 51 8- 7- 00 OR 91 Av ve X 28 20 20 T ai [address] laguerre 1 UG bl MC e G CE NA NT SA ER L SP RA Y AM 00 05 04 04 30 30 NE 88 No Ac IT 78 -0 -1 .0 WP 55 t ti RI 11 4- 7- 00 OR 08 Av ve PT 48 20 20 T ai YL [address] laguerre IN 0 UG bl E e HC CE L NT 25 ER MG TA B IB 24 04 04 02 48 8 NE 88 No Ac UP 38 -1 -1 .0 WP 39 t ti RO 50 8- 7- 00 OR 92 Av ve FE 54 20 20 T ai N [address] laguerre JR [address] CE R NT 10 ER 0 MG CH EW 59 04 04 03 7. 21 NE 88 No Ac 31 -1 -1 29 WP 39 t ti 00 8- 7- 9 OR 89 Av ve 17 20 20 T ai [address] laguerre 0 UG bl e CE NT ER 63 03 04 00 60 10 NE 91 No Ac 30 -1 -1 .0 WP 32 t ti 40 0- 7- 00 OR 01 Av ve 65 20 20 T ai [address] laguerre 5 UG bl e CE NT ER XO 63 04 04 02 15 21 NE 88 No Ac PE 40 -1 -1 .0 WP 39 t ti NE 20 8- 7- 00 OR 88 Av ve X 51 20 20 T ai HF [address] laguerre A 1 UG bl 45 e CE MC NT G ER IN CAZARES LE R 63 01 03 00 30 10 NE 90 No Ac 30 -3 -2 .0 WP 96 t ti 40 1- 6- 00 OR 69 Av ve 65 20 20 T ai [address] laguerre 5 UG bl e CE NT ER AM 00 01 03 00 30 10 WA 25 No Ac OX 09 -1 -2 .0 LG 51 t ti IC 33 2- 5- 00 RE 37 Av ve IL 10 20 20 EN 3 ai LI 70 08 08 # la N 5 bl 25 07 e 0 34 MG 6 CA PS UL E Immunization Name Date Rout CVX Reac Dose Comm Prov Is Faci e tion ent ider Refu lity Give sed n IIV4 11-0 158 TRACE No LEWI 9-20 E S CO VACC 16 ANGIE FAMI SPLI LY T HEAL VIRU TH S CTR 0.5 ML DOS FOR IM USE MCV4 04-2 114 Meni ROAR No HEAL 9-20 april K, TH PETERSON 08 occu COLLAZO POIN CWY s L C T CONJ vacc FAMI ine LY VACC admi CARE nist , GRPS ered INC. ; ACYW form -135 ulat IM ion USE not spec ifie d. MCV4 04-2 136 Meni ROAR No HEAL 9-20 april K, TH PETERSON 08 occu COLLAZO POIN CWY s L C T CONJ vacc FAMI ine LY VACC admi CARE nist , GRPS ered INC. ; ACYW form -135 ulat IM ion USE not spec ifie d. TDAP 04-2 115 ROAR No HEAL 9-20 K, TH VACC 08 COLLAZO POIN INE L C T 7 FAMI YRS/ LY > IM CARE , INC. 4VHP 04-2 62 ROAR No HEAL V 9-20 K, TH VACC 08 COLLAZO POIN INE L C T 3 FAMI DOSE LY CARE SCHE , DULE INC. FOR IM USE RADHA - 21 ROAR No HEAL VACC 9-20 K, TH INE 08 COLLAZO POIN LIVE L C T FOR FAMI LY SUBC CARE UTAN , EOUS INC. USE HEPA - 83 ROAR No HEAL 9-20 K, TH VACC 08 COLLAZO POIN INE L C T 2 FAMI DOSE LY CARE SCHE , DULE INC. PED/ ADOL ESC IM USE Vital Signs 09-27-2013 15:10 Name Value Interpretat Reference Comment ion Range Body 98.3 [degF] Temperature BP 69 mm[Hg] Diastolic BP Systolic 120 mm[Hg] Heart 84 /min Rate/Pulse O2% 98 % Respiratory 18 /min Rate 09-27-2013 15:09 Name Value Interpretat Reference Comment ion Range Body 98.3 [degF] Temperature BP 69 mm[Hg] Diastolic BP Systolic 120 mm[Hg] Heart 84 /min Rate/Pulse O2% 98 % Respiratory 18 /min Rate Procedures Procedure DOS Code Location Performer Comment ECG 28258 [facility] LOVE ROUTINE 7 PHYSICIAN ECG S GROUP W/LEAST 12 LDS W/I&R POTASSIUM 25044 [facility] ME[facility] SERUM 7 W W PLASMA/WH [facility] OLE BLOOD MEDICAL MEDICAL ECG 64638 [facility]IE ME[facility]OW[facility]IE ROUTINE 7 W W ECG REGIONAL REGIONAL W/LEAST MEDICAL MEDICAL 12 LDS TRCG ONLY W/O I&R COLLECTIO 76433 [facility] ME[facility] N VENOUS 7 W W BLOOD REGIONAL REGIONAL VENIPUNCT MEDICAL MEDICAL URE BLOOD 43714 [facility] ME[facility] COUNT 7 W W COMPLETE REGIONAL REGIONAL AUTO&AUTO MEDICAL MEDICAL DIFRNTL WBC URNLS DIP 17917 [facility] MEADOWVIE 7 W W STICK/TAB REGIONAL REGIONAL LET MEDICAL MEDICAL REAGENT AUTO MICROSCOP Y FITTING 69729 [facility] SPECTACLE 7 S XCPT APHAK[place] MONOFOCAL OPHTH 25349 [facility] 7 XM&EVAL COMPRHNSV ESTAB PT 1/> US PELVIC 04581 RADIOLOGY CUDA 7 INC [place]OBST[place] [address] RADIOLOG[facility] CUDA TRANSVAGI 7 INC NAL IADNA 76394 MEDICAL MEDICAL PORFIRIO 7 DIAGNOSTI DIAGNOSTI SPECIES [facility] AMPLIFIED PROBE TQ IADNA 59449 MEDICAL MEDICAL GARDNEREL 7 DIAGNOSTI DIAGNOSTI [facility] VAGINALIS AMPLIFIED PROBE TQ IADNA 91298 MEDICAL MEDICAL TRICHOMON 7 DIAGNOSTI DIAGNOSTI [facility] VAGINALIS AMPLIFIED PROBE TECH URINE 13489 [facility] N[facility] CO 7 FAMILY [facility]ILY [facility] VISUAL CTR CTR COLOR CMPRSN METHS IADNA 47190 MEDICAL MEDICAL CHLAMYDIA 7 DIAGNOSTI DIAGNOSTI [facility] TRACHOMAT IS AMPLIFIED PROBE TQ IADNA 98185 MEDICAL UNICK HERPES 7 DIAGNOSTI SOMPLX C LAB LLC VIRUS AMPLIFIED PROBE TQ IADNA 98140 MEDICAL MEDICAL NEISSERIA 7 DIAGNOSTI DIAGNOSTI [facility] GONORRHOE AE AMPLIFIED PROBE TQ IADNA NOS 10190 MEDICAL MEDICAL 7 DIAGNOSTI DIAGNOSTI AMPLIFIED C [facility] LAB [facility] PROBE TQ EACH ORGANISM URNLS DIP 61568 [facility] 7 [facility] STICK/TAB INC INC LET RGNT AUTO W/O MICROSCOP Y COMPREHEN 41292 [facility] SIVE 7 [facility] METABOLIC INC INC PANEL CULTURE 78185 [facility] BACTERIAL 7 [facility] INC INC QUANTTATI VE COLONY COUNT URINE URINE 82176 [facility] 7 [facility] TEST INC INC VISUAL COLOR CMPRSN METHS BLOOD 82963 [facility] COUNT 7 [facility] COMPLETE INC INC AUTO&[place] [address] [facility] AMYLASE 7 [place] [address] [place] [facility] ABDOMEN & 7 MEDICAL PELVIS IMAGING W/[place] [address] [facility] LIPASE 7 [facility] INC INC APPLICATI 27855 [facility] ON 7 [facility] MODALITY INC INC 1/> AREAS HOT/COLD PACKS APPL 41161 [facility] MODALITY 7 [facility] 1/> AREAS INC INC ULTRASOUN D EA 15 MIN THERAPEUT 39437 [facility] IC PX 1/> 7 [facility] AREAS INC INC EACH 15 MIN EXERCISES MANUAL 43362 [facility] THERAPY 7 [facility] TQS 1/> INC INC REGIONS EACH 15 MINUTES THERAPEUT 29871 [facility] EL[facility] IC PX 1/> 7 [facility] AREAS INC INC EACH 15 MIN EXERCISES APPLICATI 88095 [facility] EL[facility] ON 7 [facility] MODALITY INC INC 1/> AREAS HOT/COLD PACKS APPL 28245 [facility] MODALITY 7 [facility] 1/> AREAS INC INC ELEC STIMJ UNATTENDE D PHYSICAL 56796 [facility] THERAPY 7 [facility] EVALUATIO INC INC N LOW COMPLEX 20 MINS RADEX 22103 [place] SPINE 7 MEDICAL LUMBOSACR IMAGING AL ASS MINIMUM 4 VIEWS ECG 12365 ARIK ARIK ROUTINE 7 [facility] ECG INC INC W/LEAST 12 LDS TRCG ONLY W/O I&R CV STRS 83663 [facility] SILVAON TST 7 [facility] XERS&/OR INC INC RX CONT ECG TRCG ONLY ECHO 02629 [facility] ELISE TTHRC R-T 7 [facility] 2D INC INC W/WOM-MOD E COMPL SPEC&COLR D XTRNL ECG 60445 [facility] ELISE & 48 HR 7 [facility] RECORDING INC INC COLLECTIO 38358 [facility] EL[facility] N VENOUS 7 [facility] [place]LOOD [place] [address] [facility] FREE 7 [facility] [place] [address] [facility] EL[facility] THYROID 7 [facility] STIMULATI INC INC NG HORMONE TSH CREATINE 87228 [facility] ELISE KINASE MB 7 [facility] FRACTION INC INC ONLY CREATINE 00883 [facility] ELISE KINASE 7 [facility] TOTAL INC INC ECG 11231 [facility] ELISE ROUTINE 7 [facility] ECG INC INC W/LEAST 12 LDS TRCG ONLY W/O I&R RADIOLOGI 89676 [facility] ELISE C EXAM 7 [facility] CHEST 2 INC INC VIEWS FRONTAL&L ATERAL ECG 61719 ARIK MCKEON ROUTINE [address] [facility] W/LEAST P 12 LDS I&R ONLY BLOOD 45695 [facility] ELISE COUNT 7 [facility] COMPLETE INC INC AUTO&[place] [address] [facility] TROPONIN 7 [facility] QUANTITAT INC INC MAXINE THERAPEUT 84838 ARIK ELISE IC 7 [facility] INJECTION INC [place] [address] ARIK ELISE INFUSION 7 [facility] THERAPY/P INC INC ROPHYLAXI S /DX 1ST TO 1 HR COMPREHEN 73190 [facility] ELISE SIVE 7 [facility] METABOLIC INC INC PANEL URINE 13122 ARIK ARIK 7 [facility] TEST INC INC VISUAL [facility] 57434 [facility] DISCHARGE 7 FAMILY DAY [facility]ALTH MANAGEMEN CTR T 30 MIN/< SBSQ 24433 NEVA [facility] 7 FAMILY CARE/DAY HEALTH 15 CTR MINUTES VAGINAL 67837 NEVA [facility] DELIVERY 7 FAMILY ONLY HEALTH CTR DELIVERY [id number] MEADOWVIE MEADOWVIE PRODUCTS 7 W W OF [facility] CONCEPTIO MEDICAL MEDICAL N EXTERNAL NEURAXIAL [id number] [facility] KEANU JR [facility]OR 7 LTH ANALG/ANE ANESTHESI S PLND A PSC VAGINAL DELIVERY INJECTION J2210 MEADOWVIE MEADOWVIE 7 W W METHYLERG [facility] ONOVINE MEDICAL MEDICAL MALEATE UP TO 0.2 MG INITIAL 57188 NEVA PEREZ [place] OBSERVATI 7 FAMILY ON HEALTH CARE/DAY CTR 30 MINUTES 03280 MEADOWVIE MEADOWVIE NONSTRESS 7 W W TEST [facility] MEDICAL MEDICAL URNLS DIP 12203 NEVA PEREZ [place] 7 FAMILY STICK/TAB HEALTH LET RGNT CTR NON-AUTO W/O MICRSCP URNLS DIP 94201 NEVA PEREZ HOGGE 7 FAMILY STICK/TAB HEALTH LET RGNT CTR NON-AUTO W/O MICRSCP IADNA 72837 MERLY MORELAND STREPTOCO [address] [facility] GROUP B MEDICAL MEDICAL AMPLIFIED PROBE TQ CUL 86403 MERLY HOBSONWEBEN PRSMPTV 7 W W PTHGNC [facility] ORGANISM MEDICAL MEDICAL SCRN W/COLONY ESTIMJ URNLS DIP 99257 NEVA PEREZ HOGGE 6 FAMILY STICK/TAB HEALTH LET RGNT CTR NON-AUTO W/O MICRSCP INITIAL 24503 NEVA PEREZ [place] OBSERVATI 6 FAMILY ON HEALTH CARE/DAY CTR 30 MINUTES CULTURE 96939 MERLY HOBSONWEBEN BACTERIAL 6 W W [facility] QUANTTATI MEDICAL MEDICAL VE COLONY COUNT URINE SMR PRIM 42296 JAZLYNWEBEN HOBSONWVIE SRC WET 6 W W [facility] AGT MEDICAL MEDICAL 46290 MEAWEBEN MEADOWVIE NONSTRESS 6 W W TEST [facility] MEDICAL MEDICAL EVAL C/V 06303 MEAWEBEN MEAWVIE AMNIOTIC 6 W W FLUID [facility] PROTEIN MEDICAL MEDICAL QUAL EA SPECIMEN URNLS DIP 34301 MERLY MEAWVIE 6 W W STICK/TAB [facility] LET MEDICAL MEDICAL REAGENT AUTO MICROSCOP Y GLUC BLD 27508 MEADOWVIE MEADOWVIE GLUC MNTR 6 W W DEV [facility] CLEARED MEDICAL MEDICAL FDA SPEC HOME USE 57644 ARIK ELISE NONSTRESS 6 [facility] TEST INC INC DRUG TST [id number] ARIK ELISE PRESUMP;C 6 [facility] PBL BEING INC INC READ DC OPT OBV ONLY URNLS DIP 78172 NEVA PEREZ [place] FL[place]A 6 FAMILY STICK/TAB HEALTH LET RGNT CTR NON-AUTO W/O MICRSCP URNLS DIP 80577 NEVA PEREZ HOGGE ANGIE 6 FAMILY STICK/TAB HEALTH LET RGNT CTR NON-AUTO W/O MICRSCP IM ADM 13221 NEVA DIAZ ANGIE PRQ ID 6 FAMILY SUBQ/IM HEALTH NJXS 1 CTR VACCINE IIV4 VACC 16595 NEVA DIAZ ANGIE SPLIT 6 FAMILY VIRUS 0.5 HEALTH ML DOS CTR FOR IM USE BLOOD 71803 NEVA DIAZ ANGIE COUNT 6 FAMILY [facility]EM[facility] N CTR GLUCOSE 87874 LAB PRETTY LAB PRETTY POST 6 [facility] GLUCOSE [employer] DOSE COLLECTIO 67734 NEVA DIAZ ANGIE N VENOUS 6 FAMILY BLOOD HEALTH VENIPUNCT CTR URE CULTURE 16564 MEADOWVIE MEADOWVIE BACTERIAL 6 W W [facility] COLONY COUNT URINE CULTURE 02359 ARIK ELISE BCT 6 [facility] ISOL&PRSM INC INC PTV ID ISOLATE EA URINE CULTURE 25385 ARIK ELISE BACTERIAL 6 [facility] INC INC QUANTTATI VE COLONY COUNT URINE 12616 [facility] NONSTRESS 6 PHYSICIAN TEST S GROUP SUSCEPTIB 56948 ARIK ELISE LTY STDY 6 [facility] ANTIMICRB INC INC IAL MICRO/AGA R DILUTJ DRUG TST [id number] ARIK ELISE PRESUMP;C 6 [facility] PBL BEING INC INC READ DC OPT OBV ONLY US PREG [address]10 [place] SYED UTERUS 6 MEDICAL ROXANNE AFTER 1ST IMAGING TRIMEST ASS / [place] [address] ARIK ELISE RETROPERI 6 [facility] TONEAL INC [place] [address] [place] SYED RETROPERI 6 MEDICAL ROXANNE TONEAL IMAGING REAL TIME ASS W/IMAGE LIMITED US PREG 44223 ARIK ELISE UTERUS 6 [facility] W/DETAIL INC INC ARTIE 1ST GESTATION US PREG 91279 NEVA PATRICIO UTERUS 6 FAMILY [facility] W/DETAIL HEALTH CTR ARTIE 1ST GESTATION URNLS DIP 55951 NEVA HERRMANNKI 6 FAMILY [facility]ISON STICK/TAB HEALTH LET RGNT CTR NON-AUTO W/O MICRSCP URNLS DIP 82817 NEVA CO HILL FLORA 6 FAMILY STICK/TAB HEALTH LET RGNT CTR NON-AUTO W/O MICRSCP IADNA 28964 LAB PRETTY LAB PRETTY PORFIRIO 6 BENJAMIN BENJAMIN SPECIES HOLDINGS HOLDINGS DIRECT PROBE TQ IADNA 59926 LAB PRETTY LAB PRETTY GARDNEREL 6 BENJAMIN BENJAMIN LA HOLDINGS HOLDINGS VAGINALIS DIRECT PROBE TQ IADNA 43380 LAB PRETTY LAB PRETTY TRICHOMON 6 BENJAMIN BENJAMIN HOLDINGS HOLDINGS VAGINALIS DIRECT PROBE TQ URNLS DIP 97209 NEVA CO DAVIS LAURENT 6 FAMILY STICK/TAB HEALTH LET RGNT CTR NON-AUTO W/O MICRSCP URNLS DIP 97999 NEVA CO HOGGE ANGIE 6 FAMILY STICK/TAB HEALTH LET RGNT CTR NON-AUTO W/O MICRSCP URNLS DIP 89080 NEVA CO DAVIS LAURENT 6 FAMILY STICK/TAB HEALTH LET RGNT CTR NON-AUTO W/O MICRSCP COMPREHEN 06649 MERLY PICKARDHARRYEBEN SIVE 6 W W METABOLIC REGIONAL REGIONAL PANEL MEDICAL MEDICAL INITIAL 80548 NEVA ANA DAVIS LAURENT OBSERVATI 6 FAMILY ON HEALTH CARE/DAY CTR 30 MINUTES COLLECTIO 87666 MERLY MORELAND N VENOUS 6 W W BLOOD [facility] REGIONAL VENIPUNCT MEDICAL MEDICAL URE URNLS DIP 23887 NEVA PEREZ HOGNAZIA ANGIE 6 FAMILY STICK/TAB HEALTH LET RGNT CTR NON-AUTO W/O MICRSCP IADNA 48056 MEDICAL MEDICAL NEISSERIA 6 DIAGNOSTI [facility]AGNOST[facility] GONORRHOE AE AMPLIFIED PROBE TQ IADNA 06441 MEDICAL MEDICAL CHLAMYDIA 6 [facility] TRACHOMAT IS AMPLIFIED PROBE TQ CULTURE 71430 LAB PRETTY LAB PRETTY BACTERIAL 6 BENJAMIN BENJAMIN HOLDINGS HOLDINGS QUANTTATI VE COLONY COUNT URINE HEPATITIS 80539 LAB PRETTY LAB PRETTY C 6 BENJAMIN BENJAMIN ANTIBODY HOLDINGS HOLDINGS OBSTETRIC 48898 LAB PRETTY LAB PRETTY PANEL 6 BENJAMIN BENJAMIN HOLDINGS HOLDINGS DRUG TEST G0479 LAB PRETTY LAB PRETTY 6 BENJAMIN BENJAMIN PRESUMP;I HOLDINGS HOLDINGS NSTRUMENT ED CHEMISTRY ANLYZER DRUG TST G0483 LAB PRETTY LAB PRETTY DEFINITV [address] ID HOLDINGS HOLDINGS METH P DAY 22/MORE DR CL CREATININ 10366 LAB PRETTY LAB PRETTY E OTHER 6 BENJAMIN BENJAM[place] [address] ARIK ELISE AMYLASE 6 [place] [address] ARIK ELISE LIPASE 6 [facility] INC INC INJECTION J2405 ARIK ARIK 6 [facility] ONDANSETR INC INC ON HCL PER 1 MG UNCLASSIF J3490 ARIK ELISE IED DRUGS 6 [facility] INC INC BLOOD 33492 ARIK ELISE COUNT 6 [facility] COMPLETE INC INC AUTO&AUTO DIFRNTL WBC URNLS DIP 30141 ARIK ARIK 6 [facility] STICK/TAB INC [place] [address] RAIK ELISE INFUSION 6 [facility] THERAPY/P INC INC ROPHYLAXI S /DX 1ST TO 1 HR BASIC 73882 ARIK ELISE METABOLIC 6 [facility] PANEL INC INC CALCIUM TOTAL FRAMES V2020 EARL MAGNO EARLREBECCA KIRAN PURCHASES 6 1 VISN V2103 EARLREBECCA KIRAN EARLREBECCA KIRAN PLANO 6 TO+/-4.00 D SPHER 0.12-2.00 D CYL EA SCRATCH V2760 EARLREBECCA KIRAN EARLREBECCA KIRAN RESISTANT 6 COATING PER LENS LENS V2784 EARLREBECCA KIRAN EARLREBECCA KIRAN POLYCARBO 6 JOSSELINE OR EQUAL ANY INDEX PER LENS FITTING 99898 RAJAT KIRAN SPECTACLE 6 S XCPT APHAKIA MONOFOCAL OPHTH 06040 RAJAT KIRAN MEDICAL 6 XM&EVAL COMPRHNSV ESTAB PT 1/> THER 71081 ARIK ELISE PROPH/DX 5 [facility] NJX IV INC INC PUSH SINGLE/1S T SBST/DRUG THERAPEUT 74503 ARIK ELISE IC 5 [facility] INJECTION INC INC IV PUSH EACH NEW DRUG GLUC BLD 61048 ARIK ELISE GLUC MNTR 5 [facility] DEV INC INC CLEARED FDA SPEC HOME USE SKIN TEST 34441 NEVA PEREZ HOLLEY TON 5 PRIMARY TUBERCULO CARE [facility] CENTER INTRADERM AL URINE 91530 ARIK ELISE 5 [facility] TEST INC INC VISUAL COLOR CMPRSN METHS CULTURE 25107 ARIK ELISE BACTERIAL 5 [facility] INC INC QUANTTATI VE COLONY COUNT URINE RADIOLOGI 90123 ARIK ELISE C 5 [facility] EXAMINATI INC INC ON PELVIS 1/2 VIEWS URNLS DIP 25313 ARIK ELISE 5 [facility] STICK/TAB INC INC LET REAGENT AUTO MICROSCOP Y RADEX 22544 ARIK ELISE SPINE 5 [facility] LUMBOSACR INC INC AL MINIMUM 4 VIEWS RADEX HIP 26644 ARIK ELISE 5 [facility] UNILATERA INC INC L COMPLETE MINIMUM 2 VIEWS GONADOTRO 48381 MEADOWVIE MEADOWVIE PIN 5 W W CHORIONIC REGIONAL REGIONAL MEDICAL MEDICAL QUANTITAT MAXINE COLLECTIO 08507 MEADOWVIE MEADOWVIE N VENOUS 5 W W BLOOD REGIONAL REGIONAL VENIPUNCT MEDICAL MEDICAL URE URINE 10115 ARIK ELISE 5 [facility] TEST INC INC VISUAL COLOR CMPRSN METHS IADNA 77655 MEDICAL MEDICAL CHLAMYDIA 5 DIAGNOSTI DIAGNOSTI [facility] LAB [facility] C LAB LLC TRACHOMAT IS AMPLIFIED PROBE TQ IADNA 28332 MEDICAL MEDICAL NEISSERIA 5 DIAGNOSTI DIAGNOSTI [facility] C LAB LLC GONORRHOE AE AMPLIFIED PROBE TQ CULTURE 08607 MEADOWVIE MEADOWVIE BACTERIAL 5 W W REGIONAL REGIONAL QUANTTATI MEDICAL MEDICAL VE COLONY COUNT URINE CULTURE 36241 MEADOWVIE MEADOWVIE BACTERIAL 5 W W REGIONAL REGIONAL QUANTTATI [place] [address] [facility] ABDOMEN & 4 MEDICAL NIKIA PELVIS IMAGING W/CONTRAS ASS T MATERIAL EGD 15458 [facility] TRANSORAL 4 TRACE DON BIOPSY GASTROEN SINGLE/MU LTIPLE ANES 55098 [facility] MARCIAL UPPER GI 4 LTH TAO ENDOSCOPY ANESTHESI PROXIMAL A PSC TO DUODENUM INFUSION J7030 MEAWVIE MEADOWVIE NORMAL 4 W W SALINE [facility] SOLUTION MEDICAL MEDICAL 1000 CC CUL 65965 MERLY HOBSONWEBEN PRSMPTV [address] [facility] MEDICAL MEDICAL SCRN W/COLONY ESTIMJ URINE 40439 MEADOWEBEN MEADOWVIE 4 W W TEST [facility] VISUAL MEDICAL MEDICAL [place] [address] MEADOWEBEN MEADOWEBEN SURG 4 W W PATHOLOGY [facility] GROSS&ANTONETTE ROSCOPIC EXAM IMHISTOCH 79720 JAZLYNWEBEN HOBSONWEBEN EM/CYTCHM 4 W W 1ST [facility] ANTIBODY MEDICAL MEDICAL STAIN PROCEDURE AVULSION 59454 ARIK ELISE NAIL 4 [facility] PLATE INC INC PARTIAL/C OMPLETE SIMPLE 1 WEDGE 49688 AMANDEEP BERNSTEIN JERILYN EXCISION 4 SKIN NAIL FOLD RADEX [address] NASAL 3 SUSAN SUSAN BONES FT FT COMPLETE SABRINA SABRINA MINIMUM 3 [place] [address] ARIK ELISE INFUSION 2 [facility] THERAPY INC INC PROPHYLAX IS/DX EA HOUR 3D 14069 ARIK ELISE RENDERING 2 [facility] INC INC W/INTERP& POSTPROC DIFF WORK STATION THERAPEUT 77324 ARIK ELISE IC 2 [facility] INJECTION [place] [address] ARIK ELISE INFUSION 2 [facility] THERAPY/P INC INC ROPHYLAXI S /DX [address] [place] [address] AHSANY SYED ABDOMEN & 2 MEDICAL ROXANNE PELVIS IMAGING W/CONTRAS ASS T MATERIAL LOCM Q9967 ARIK ELISE 300-399 2 [facility] MG/ML INC INC IODINE CONCENTRA TION PER ML URINE 89228 ARIK ELISE 2 [facility] TEST INC INC VISUAL COLOR CMPRSN METHS COMPREHEN 37757 ARIK ELISE SIVE 2 [facility] METABOLIC INC INC PANEL BLOOD 35960 ARIK ELISE COUNT 2 [facility] COMPLETE INC INC AUTO&AUTO DIFRNTL WBC URNLS DIP 82243 ARIK ELISE 2 [facility] STICK/TAB INC INC [place] [address] ARIK ELISE STREPTOCO 2 [facility] H[facility] CCUS INC INC GROUP A FRAMES V2020 RAJAT EARL [facility] PURCHASES 2 1 VISN V2103 EARLREBECCA EARL MAGNO PLANO 2 TO+/-4.00 D SPHER 0.12-2.00 D CYL EA DETERMINA 13940 EARL MAGNO EARL [facility] TION 2 REFRACTIV E STATE FITTING 22996 [facility] SPECTACLE 2 S XCPT APHAKIA MONOFOCAL OPHTH 57546 [facility] MEDICAL 2 XM&EVAL COMPRE NEW PT 1/> VST URNLS DIP 69644 ARIK ELISE 2 [facility] STICK/TAB INC INC LET REAGENT AUTO MICROSCOP Y URINE 86727 ARIK ELISE 2 [facility] TEST INC INC VISUAL COLOR CMPRSN METHS CULTURE 54030 ARIK ELISE BACTERIAL 2 [facility] INC INC QUANTTATI VE COLONY COUNT URINE CULTURE 43914 MEADOWVIE MEADOWVIE BACTERIAL 2 W W [facility] QUANTTATI MEDICAL MEDICAL VE COLONY COUNT URINE CUL BACT 11200 MEADOWVIE MEADOWVIE AEROBIC 2 [facility] MEDICAL MEDICAL DEFINITIV E EA ISOL URINE 60711 MEADOWVIE MEADOWVIE 2 W W TEST [facility] VISUAL MEDICAL MEDICAL COLOR CMPRSN METHS SUSCEPTIB 23332 MEADOWVIE MEADOWVIE LTY STDY 2 W W ANTIMICRB [facility] IA MEDICAL MEDICAL MICRO/AGA R DILUTJ URNLS DIP 06418 MEADOWVIE MEADOWVIE 2 W W STICK/TAB [facility] LET MEDICAL MEDICAL REAGENT AUTO MICROSCOP Y EXCISION 65987 PAWSAT PAWSAT NAIL 1 [place] [address] MEAWEBEN HOBSONWVIE ABDOMEN & 1 W W PELVIS [facility] W/O MEDICAL MEDICAL CONTRST 1/> BODY RE THER 97974 MERLY HOBSONWVIE PROPH/DX 1 W W NJX IV [facility] MEDICAL SINGLE/1S T SBST/[place] [address] JAZLYNWEBEN MEADOWVIE AMYLASE 1 W W [facility] 3D 62549 [facility] RENDERING 1 TAO W/INTERP RADIOLOGY & ASSOCI[place] [address] JAZLYNWEBEN MEAWVIE LIPASE 1 W W [facility] URNLS DIP 91795 JAZLYNWEBEN MEADOWVIE 1 W W STICK/TAB [facility] MEDICAL REAGENT AUTO MICROSCOP Y THERAPEUT 63950 JAZLYNWEBEN MEAWVIE IC 1 W W INJECTION [facility] IV PUSH [facility] MEDICAL EACH NEW DRUG BLOOD 92330 MERLY MEAWVIE COUNT 1 W W COMPLETE [facility] AUTO&AUTO MEDICAL MEDICAL DIFRNTL WBC COLLECTIO 75949 JAZLYNWEBEN MEAWVIE N VENOUS 1 W W BLOOD [facility] VENIPUNCT MEDICAL MEDICAL URE URINE 56744 JAZLYNWEBEN MEAWVIE 1 W W TEST [facility] VISUAL MEDICAL MEDICAL COLOR CMPRSN METHS COMPREHEN 44048 JAZLYNWEBEN MEADOWVIE SIVE 1 W W METABOLIC [facility] PANEL MEDICAL MEDICAL AVULSION 59717 MEAWEBEN MEAWVIE NAIL 0 W W PLATE [facility] PARTIAL/C MEDICAL MEDICAL OMPLETE SIMPLE 1 EXCISION 55708 NORRIS TREJOO NAIL 0 EMERGENCY DEV [facility] PERMANENT REMOVAL RADEX 91130 MEAWEBEN MEAWVIE SPINE 0 W W CERVICAL [facility] 2 OR 3 MED[facility] CENTER CENTER RPR&REFIT 74607 RAMO EARL, G 0 VISION PATRICE A SPECTACLE S EXCEPT APHAKIA 1 VISN V2103 RAMO EARL, PLANO 0 VISION PATRICE A TO+/-4.00 D SPHER 0.12-2.00 D CYL EA FRAMES V2020 RAMO EARL PURCHASES 0 VISION PATRICE A RADIOLOGI 58780 [facility] C EXAM 9 [facility] CHEST 2 EAST EAST VIEWS FRONTAL&L ATERAL ECG 50465 [facility] ROUTINE 9 [facility] ECG EAST EAST W/LEAST 12 LDS TRCG ONLY W/O I&R RADEX 75165 [facility], WRIST 2 9 SHAYNA S VIEWS RADIOLOGY ASSOCIATE S [facility] RADEX 45120 [facility], FOREARM 2 9 SHAYNA S VIEWS RADIOLOGY ASSOCIATE S PSC RADEX 61318 MEADOWVIE MEADOWVIE WRIST 9 W W COMPLETE [facility] MINIMUM 3 MEDICAL MEDICAL VIEWS CENTER CENTER 3D 04444 [facility], RENDERING 9 SHAYNA S W/INTERP RADIOLOGY & POSTPROCE [place] [address] [facility], ABDOMEN 9 SHAYNA S W/CONTRAS RADIOLOGY T MATERIAL ASSOCIATE S [facility] CT PELVIS 99105 MEADOWVIE MEADOWVIE 9 W W W/CONTRAS [facility] T MEDICAL MEDICAL MATERIAL CENTER CENTER COLLECTIO 32107 MEADOWVIE MEADOWVIE N VENOUS 9 W W BLOOD [facility] VENIPUNCT [place] [address] MEADOWVIE MEADOWVIE INFUSION 9 W W HYDRATION [facility] INITIAL MEDICAL MEDICAL 31 MIN-1 CENTER CENTER HOUR BLOOD 27849 MEADOWVIE MEADOWVIE COUNT 9 W W COMPLETE REGIONAL REGIONAL AUTO&AUTO MEDICAL MEDICAL DIFRNTL CENTER CENTER WBC RADIOLOGI 27437 [facility], EXAM 9 SHAYNA S CHEST 2 RADIOLOGY VIEWS FRONTAL&L ASSOCIATE ATERAL S [facility] URNLS DIP 78211 MEADOWVIE MEADOWVIE 9 W W STICK/TAB [facility]IONAL [facility] LET MEDICAL MEDICAL REAGENT CENTER CENTER AUTO MICROSCOP Y URINE 28452 MEADOWVIE MEADOWVIE 9 W W TEST [facility]IONAL [facility] VISUAL MEDICAL MEDICAL COLOR CENTER CENTER CMPRSN METHS BASIC 84414 MEADOWVIE MEADOWVIE METABOLIC 9 W W PANEL [facility] CALCIUM MEDICAL MEDICAL TOTAL CENTER CENTER RADEX [address] [place] [facility] [address] [place] [address] MINIMUM 2 EAST EAST VIEWS AVULSION 11379 MEADOWVIE MEADOWVIE NAIL 9 W W PLATE [facility] PARTIAL/C MEDICAL MEDICAL OMPLETE CENTER CENTER SIMPLE 1 URNLS DIP 29166 MEADOWVIE MEADOWVIE 9 W W STICK/TAB [facility]AL [facility] LET MEDICAL MEDICAL REAGENT [place] [address] MEADOWVIE MEADOWVIE INFUSION 9 W W THERAPY/P [facility] ROPHYLAXI MEDICAL MEDICAL S /DX 1ST CENTER CENTER TO 1 HR BLOOD 65852 MEADOWVIE MEADOWVIE COUNT 9 W W COMPLETE [facility] AUTO&AUTO MEDICAL MEDICAL DIFRNTL CENTER CENTER WBC RADIOLOGI 92143 KANE Hakan GARCIA EXAM 9 SHAYNA S CHEST 2 RADIOLOGY VIEWS FRONTAL&L ASSOCIATE ATERAL S PSC COMPREHEN 24215 MEADOWVIE MEADOWVIE SIVE 9 W W METABOLIC [facility] PANEL MEDICAL MEDICAL CENTER CENTER THER 59313 MEADOWVIE MEADOWVIE PROPH/DX 9 W W NJX IV [facility] PUSH MEDICAL MEDICAL SINGLE/1S CENTER CENTER T SBST/DRUG COLLECTIO 51765 MEADOWVIE MEADOWVIE N VENOUS 9 W W BLOOD [facility] VENIPUNCT MEDICAL MEDICAL URE CENTER CENTER SEDIMENTA 99997 MEADOWVIE MEADOWVIE TION RATE 9 W W RBC [facility]AL [facility] NON-AUTOM MEDICAL MEDICAL ATED CENTER CENTER URINE 01946 MEADOWVIE MEADOWVIE 9 W W TEST [facility] VISUAL MEDICAL MEDICAL COLOR CENTER CENTER CMPRSN METHS CULTURE 55634 MEADOWVIE MEADOWVIE BACTERIAL 9 W W BLOOD [facility] AEROBIC MEDICAL MEDICAL W/[place] [address] MEADOWVIE MEADOWVIE INFLUENZA 9 W W A/B EACH [facility] MEDICAL MEDICAL CENTER CENTER IAADIADOO 45573 MEADOWVIE MEADOWVIE 9 W W STREPTOCO REGIONAL REGIONAL CCUS MEDICAL MEDICAL GROUP A CENTER CENTER CUL 52496 MEADOWVIE MEADOWVIE PRSMPTV 9 W W PTHGNC REGIONAL REGIONAL ORGANISM MEDICAL MEDICAL SCRN CENTER CENTER W/COLONY ESTIMJ CUL BACT 71242 MEADOWVIE MEADOWVIE AEROBIC 8 W W ADDL REGIONAL REGIONAL METHS MEDICAL MEDICAL DEFINITIV CENTER CENTER E EA ISOL CUL BACT 78954 MEADOWVIE MEADOWVIE XCPT 8 W W URINE REGIONAL REGIONAL BLOOD/STO MEDICAL MEDICAL OL CENTER CENTER AEROBIC ISOL SMR PRIM 46392 MEADOWVIE MEADOWVIE SRC 8 W W GRAM/GIEM REGIONAL REGIONAL SA STAIN MEDICAL MEDICAL BCT CENTER CENTER FUNGI/BJ L SUSCEPTIB 38469 MEADOWVIE MEADOWVIE LTY STDY 8 W W ANTIMICRB [facility] IAL MEDICAL MEDICAL MICRO/AGA CENTER CENTER R DILUTJ SUSCEPTIB 87931 MEADOWVIE MEADOWVIE ILITY 8 W W STUDY [facility] ANTIMICRO MEDICAL MEDICAL BIAL DISK CENTER CENTER METHOD INCISION 41606 MEADOWVIE MEADOWVIE & 8 W W DRAINAGE [facility] ABSCESS MEDICAL MEDICAL SIMPLE/SI CENTER CENTER NGLE FRAMES V2020 RAJAT EARL, PURCHASES 8 PATRICE A PATRICE A OPHTH 38890 RAJAT EARL, MEDICAL 8 PATRICE A PATRICE A XM&EVAL COMPRE NEW PT 1/> VST RPR&REFIT 40042 RAJAT EARL G 8 PATRICE A PATRICE A SPECTACLE S EXCEPT APHAKIA SPHERE V2100 RAJAT EARL, SINGLE 8 PATRICE A PATRICE A VISION PLANO +/- 4.00 [place] [address] [facility] CHILDREN THER [address] [place] [address] PROPH/DX 1ST >1 HR LEVEL III 36860 [facility] SURG [address] [place] [address] PATHOLOGY GROSS&ANTONETTE ROSCOPIC EXAM ANESTHESI 48003 [facility] HOSU, A MEDICAL MARCIO G INTRAORAL SERVICES WITH INC BIOPSY NOS TONSILLEC 61443 [facility] MINNA III, KAREEM & 8 HOSP MED PETER [facility] CTR M KAREEM <AGE 13 THER [address]375 [facility]/DX [facility] SUB[facility]/[place] [address] CHILDRENS FIERRO, MAXILLOFA 8 [facility] VARUN Ariela CIAL W/O CTR CONTRAST MATERIAL RADIOLOGI 58971 CHILDRENS OESTREICH C EXAM 8 [facility] , LASHELL E CHEST 2 CTR VIEWS FRONTAL&L ATERAL SPMTRY 99184 [facility] CHILDRENS W/VC 8 [facility] EXPIRATOR Y RADHA W/WO MXML VOL VNTJ PERCUTANE 18245 [facility]ILDRENS CHILDRENS OUS TESTS 8 [facility] W/ALLERGE BAUTISTA EXTRACTS HEPA 68802 [facility] [employer], VACCINE 2 8 POINT ISA C DOSE FAMILY SCHEDULE CARE, PED/ADOLE INC. SC IM USE 4VHPV 00090 [employer], VACCINE 3 8 POINT ISA C DOSE FAMILY SCHEDULE CARE, FOR IM INC. USE MCV4 96121 [employer], MENACWY 8 POINT ISA C CONJ VACC FAMILY GRPS CARE, [id number] INC. IM USE TDAP 93457 [facility] [employer], VACCINE 7 8 POINT ISA C YRS/> IM FAMILY CARE, INC. RADHA 03011 [facility] [employer], VACCINE 8 POINT ISA C LIVE FOR FAMILY SUBCUTANE CARE, [place] [address] ST STREPTOCO 8 SUSAN SUSAN CCUS GROUP A MEDICALCE MEDICALCE NTER NTER RADEX 89752 RADIOLOGY MAURICE, FOOT 8 COMPLETE ASSOCIATE SUSAN MINIMUM 3 S PSC A VIEWS RADEX 11502 RADIOLOGY VIMAL ANKLE 8 III, COMPLETE ASSOCIATE BRIA MINIMUM 3 S PSC VIEWS APPLICATI [address] ON OF 8 SUSAN SUSAN SPLINT MEDICALCE MEDICALCE NTER NTER IAADIADOO 57206 [facility]ALTH [facility]ONY, 8 POINT ISA C STREPTOCO FAMILY CCUS CARE, GROUP A INC. NAIL 86.23 Leigh Ann Bernstein MD Encounters Encounter Start End Date Code Location Performer Type Date [facility] T [facility] MINUTES OFFICE 88207 [facility] LOVE OUTPATIEN 7 7 PHYSICIAN T VISIT S GROUP 25 MINUTES [facility] 60351 [facility] VILLARREAL OUTPATIEN 7 7 FAMILY T VISIT HEALTH 15 CTR MINUTES EMERGENCY 44638 ANDREE ANDRADE DEPT 7 7 PHYSICIAN VISIT S, PLLC HIGH SEVERITY& THREAT FUN [facility]OSP[facility] - 7 7 [facility] OUTPATIEN INC T EMERGENCY 99696 [facility] 7 7 [facility] DEPARTMEN INC T VISIT HIGH/URGE NT SEVERITY OFFICE 23119 [facility] OUTPATIEN 7 7 [facility] T VISIT 5 INC MINUTES [facility]OSPITAL [facility] - 7 7 [facility] OUTPATIEN INC T OFFICE 73788 [facility] OUTPATIEN 7 7 [facility] T VISIT 5 INC MINUTES HOSPITAL [facility] - 7 7 [facility] OUTPATIEN INC T [facility]OSPITAL [facility] - 7 7 [facility] OUTPATIEN INC T [facility]OSPITAL [facility] - 7 7 [facility] OUTPATIEN INC T OFFICE 25551 [facility] LUPE OUTPATIEN 7 7 PHYSICIAN T VISIT S GROUP 25 MINUTES HOSPITAL [facility] - 7 7 [facility] OUTPATIEN INC T OFFICE 76520 [facility] LOVE OUTPATIEN 7 7 PHYSICIAN T VISIT S GROUP 25 MINUTES OFFICE 62336 [facility] OUTPATIEN 7 7 [facility] T VISIT 5 INC MINUTES [facility]OSPITAL [facility] - 7 7 [facility] OUTPATIEN INC T [facility]OSPITAL [facility] - 7 7 [facility] OUTPATIEN INC T [facility]OSPITAL ARIK - 7 7 [facility] OUTPATIEN [facility] EMERGENCY 20457 ARIK 7 7 [facility] VISIT MODERATE SEVERITY EMERGENCY 86124 ANDREE [facility] DEPT 7 7 PHYSICIAN U VISIT S, PLL HIGH SEVERITY& THREAT FORMERLY [facility] HOSPITAL ARIK - 7 7 [facility] OUTPATIEN [facility] MERLY - 7 7 W [facility] MERLY - 7 7 W [facility] MEDICAL OFFICE 57109 [place] OUTPATIEN 7 7 FAMILY T VISIT HEALTH 15 CTR MINUTES OFFICE 77793 ENVA DIAZ OUTPATIEN 7 7 FAMILY T VISIT HEALTH 15 CTR [facility] MERLY - 7 7 W [facility] MEDICAL OFFICE 82917 [place] EMILY OUTPATIEN 6 6 FAMILY T VISIT HEALTH 15 CTR [facility] - 6 6 W [facility] - 6 6 [facility] T OFFICE 98045 [place] FLORA OUTPATIEN 6 6 FAMILY T VISIT HEALTH 15 CTR MINUTES OFFICE 06163 [place] BCEKYGE ANGIE OUTPATIEN 6 6 FAMILY T VISIT HEALTH 15 CTR MINUTES OFFICE 13928 MERLY [place] OUTPATIEN 6 6 W GENERAL DESTINEE T NEW 30 SURGERY [facility] MERLY - 6 6 W [facility] MEDICAL OFFICE 29458 [facility] FARRELL OUTPATIEN 6 6 PHYSICIAN T NEW 30 S GROUP [facility] - 6 6 [facility] 69115 [place] SAVANNAHZESKI OUTPATIEN 6 6 FAMILY ALLISON T VISIT HEALTH 15 CTR MINUTES OFFICE 40430 [facility] HINES OUTPATIEN 6 6 FAMILY T VISIT HEALTH 15 CTR MINUTES OFFICE 37373 NEVA DAVIS LAURENT OUTPATIEN 6 6 FAMILY T VISIT HEALTH 15 CTR MINUTES OFFICE 36916 NEVA ANA DIAZ ANGIE OUTPATIEN 6 6 FAMILY T VISIT HEALTH 15 CTR MINUTES HOSPITAL MEADOWVIE - 6 6 W OUTPATIEN REGIONAL T MEDICAL OFFICE 41224 NEVA DAVIS LAURENT OUTPATIEN 6 6 FAMILY T VISIT HEALTH 15 CTR MINUTES OFFICE 12695 NEVA DIAZ ANGIE OUTPATIEN 6 6 FAMILY T VISIT HEALTH 10 CTR MINUTES OFFICE 50935 [facility] NINOSKA OUTPATIEN 6 6 PSC JEFF T VISIT 15 MINUTES OFFICE 54024 NEVA ANA DIAZ ANGIE OUTPATIEN 6 6 FAMILY T VISIT HEALTH 15 CTR MINUTES EMERGENCY 90792 ANDREE HARTMAN 6 6 [facility], [facility]/URGE NT SEVERITY EMERGENCY 76999 [facility] 6 6 [facility] DEPARTMEN INC T VISIT LOW/MODER SEVERITY HOSPITAL [facility] - 6 6 [facility] OUTPATIEN INC T OFFICE 31619 [facility] OUTPATIEN 6 6 PSC GAR T VISIT 25 MINUTES EMERGENCY 37735 [facility] 6 6 [facility] DEPARTMEN INC T VISIT LIMITED/M INOR PROB HOSPITAL [facility] - 6 6 [facility] OUTPATIEN INC T EMERGENCY 33397 ANDREE BAEZ 6 6 PHYSICIAN U NIKIA [facility]PARTMEN S, [facility]IT MODERATE SEVERITY EMERGENCY 14572 [facility] 5 5 [facility] DEPARTMEN INC T VISIT HIGH/URGE NT SEVERITY HOSPITAL [facility] - 5 5 [facility] OUTPATIEN INC T OFFICE 85296 NEVA FREEMAN OUTPATIEN 5 5 PRIMARY T VISIT CARE 10 [facility]ENTER [facility] ARIK - 5 5 [facility] OUTPATIEN INC T EMERGENCY 34815 ARI[facility] 5 5 [facility] DEPARTMEN INC T VISIT LOW/MODER SEVERITY HOSPITAL MEAWVIE - 5 5 W OUTPATIEN REGIONAL T MEDICAL OFFICE 46299 NEVA MCGOWAN OUTPATIEN 5 5 PRIMARY T VISIT CARE 15 [facility] ARIK - 5 5 [facility] OUTPATI[facility] INC T EMERGENCY 75087 [facility] T VISIT LOW/MODER SEVERITY EMERGENCY 69758 ANDREE BAEZ 5 5 PHYSICIAN U [facility] T VISIT MODERATE SEVERITY PERIODIC 81848 NEVA MCGOWAN PREVENTIV 5 5 PRIMARY E MED EST CARE PATIENT CENTER 18-39 YRS EMERGENCY 89744 [facility] 5 5 DANYELL [facility] DEPARTMEN EMERGENCY T VISIT PHYS HIGH/URGE NT SEVERITY OFFICE 12658 [facility] OUTPATIEN 5 5 PSC JEFF T VISIT 15 MINUTES OFFICE 99923 [facility] OUTPATIEN 5 5 PSC JEFF T VISIT 15 MINUTES HOSPITAL MEAIRAIDA - 5 5 W OUTPATIEN REGIONAL T MEDICAL OFFICE 68155 [facility] OUTPATIEN 5 5 PSC JEFF T VISIT 15 MINUTES HOSPITAL MERLY - 5 5 W OUTPATIEN REGIONAL T MEDICAL EMERGENCY 19580 [facility] 4 DANYELL VISIT EMERGENCY HIGH PHYS SEVERITY& THREAT [facility] MERLY - 4 4 W OUTPATIEN REGIONAL T MEDICAL OFFICE 33135 YUKO BRADLEYER OUTPATIEN 4 4 DON DON T NEW 45 MINUTES OFFICE 35897 [facility] XIAO OUTPATIEN 4 4 JEFF JEFF T VISIT 15 MINUTES EMERGENCY 16486 [facility] 4 4 [facility] DEPARTMEN INC T VISIT LOW/MODER SEVERITY EMERGENCY 66683 AIDE NOBLE 4 4 III WILLIS III WILLIS DEPARTMEN T VISIT MODERATE SEVERITY HOSPITAL [facility] - 4 4 [facility] OUTPATIEN INC T OFFICE 17269 [facility] OUTPATIEN 4 4 JEFF JEFF T VISIT 15 MINUTES Emergency TYLER Bernstein MD (ER) 4 14:17 4 15:[address] [facility] ARIK [place] 4 [facility] OUTPATIEN INC T EMERGENCY 67158 AMANDEEP JEAN-BAPTISTE 4 4 DEPARTMEN T VISIT MODERATE SEVERITY OFFICE 23627 [facility] OUTPATIEN 3 3 JEFF JEFF T VISIT 15 MINUTES OFFICE 53769 BRACKEN BRACKEN OUTPATIEN [address] [place] [address] T VISIT 5 HIGH HIGH MINUTES [facility] PERIODIC 45500 [facility] NINOSKA PURCELLIV 3 3 PSC JEFF E MED EST PATIENT 12-17YRS EMERGENCY 26382 SHAHIDA ARTURO PINEDO HO 3 3 DEPARTMEN T VISIT HIGH/URGE NT SEVERITY [facility] - 3 3 SUSAN OUTPATIEN FT T SEDAN EMERGENCY 18639 ST 3 3 SUSAN DEPARTMEN FT T VISIT SABRINA MODERATE SEVERITY OFFICE 79208 [facility] OUTPATIEN 3 3 [facility] T VISIT HIGH HIGH 10 [facility] MINUTES OFFICE 12640 [facility]ACK[facility] BRACKEN OUTPATIEN 3 3 [facility] T VISIT HIGH [facility]IGH 15 [facility] MINUTES HOSPITAL [facility]K - 2 2 [facility] OUTPATIEN INC T EMERGENCY 25394 [facility] 2 2 [facility] DEPARTMEN INC T VISIT HIGH/URGE NT SEVERITY EMERGENCY 70478 NORRIS YUEN DEPT 2 2 EMERGENCY ADDIE VISIT SERVICES HIGH SEVERITY& THREAT FUNCJ OFFICE 77414 [facility]ACK[facility] OUTPATIEN 2 2 [facility] T VISIT HIGH [facility] 10 [facility] MINUTES OFFICE 17339 [facility]ACK[facility] BRACKEN OUTPATIEN 2 2 [facility] T VISIT HIGH HIGH 10 [facility] MINUTES EMERGENCY 18756 AIDE NOBLE 2 2 III WILLIS III WILLIS DEPARTMEN T VISIT MODERATE SEVERITY HOSPITAL [facility] - 2 2 [facility] OUTPATIEN INC T EMERGENCY 90845 [facility] 2 2 [facility] DEPARTMEN INC T VISIT LOW/MODER SEVERITY OFFICE 70230 [facility]ACKEN OUTPATIEN 2 2 [facility] T VISIT HIGH HIGH 10 [facility] MINUTES OFFICE 29504 BRACKEN BRACKEN OUTPATIEN 2 2 [facility] T VISIT HIGH HIGH 15 [facility] MINUTES OFFICE 53133 NINOSKA XIAO OUTPATIEN 2 2 [facility] JEFF T VISIT 15 MINUTES HOSPITAL ARIK - 2 2 [facility] OUTPATIEN INC T EMERGENCY 43317 VENTURA LISA VENTURA LISA 2 2 DEPARTMEN T VISIT HIGH/URGE NT SEVERITY EMERGENCY 85469 ARIK 2 2 [facility] DEPARTMEN INC T VISIT LOW/MODER SEVERITY EMERGENCY 70324 NORRIS HORVATH 2 2 EMERGENCY CARLYN DEPARTMEN SERVICES T VISIT HIGH/URGE NT SEVERITY EMERGENCY 47608 MERLY SALAZAR 2 2 [facility] VISIT MEDICAL MODERATE SEVERITY HOSPITAL MERLY - 2 2 W OUTPATIEN REGIONAL T MEDICAL OFFICE 31259 KIMBER QUIROGA OUTPATIEN 1 1 NOV MAR T NEW 20 MINUTES OFFICE 43289 NINOSKA XIAO OUTPATIEN 1 1 [facility] T VISIT 15 MINUTES EMERGENCY 30467 ARIK 1 1 [facility] DEPARTMEN INC T VISIT LOW/MODER SEVERITY HOSPITAL ARIK - 1 1 [facility] OUTPATIEN INC T EMERGENCY 08590 NORRIS ANDRADE 1 1 [facility] T VISIT MODERATE SEVERITY OFFICE 32396 BRACKEN BRACKEN OUTPATIEN 1 1 [facility] 10 [facility]UTES [facility]OSP[facility] MERLY - 1 [facility] 49138 NORRIS HROVATH DEPT 1 1 EMERGENCY CARLYN VISIT SERVICES HIGH SEVERITY& THREAT FUNCJ EMERGENCY 21281 MERLY 1 1 W [facility] T VISIT MEDICAL HIGH/URGE NT SEVERITY OFFICE 41562 BRACKEN BRACKEN OUTPATIEN 1 1 [facility] 10 MINUTES OFFICE 80668 BRACKEN BRACKEN OUTPATIEN 1 1 [facility] 10 MINUTES OFFICE 36832 BRACKEN BRACKEN OUTPATIEN 1 1 [facility] 10 MINUTES OFFICE 87577 BRACKEN BRACKEN OUTPATIEN 1 1 [facility] 10 MINUTES OFFICE 74186 BRACKEN BRACKEN OUTPATIEN 0 0 [facility] 10 MINUTES OFFICE 22258 BRACKEN BRACKEN OUTPATIEN 0 0 [facility] 10 MINUTES OFFICE 28835 BRACKEN BRACKEN OUTPATIEN 0 0 [facility] 10 MINUTES EMERGENCY 05774 NORRIS MACIAS 0 0 EMERGENCY DEV DEPARTMEN SERVICES T VISIT MODERATE [facility] MEADOWVIE - 0 0 W OUTPATIEN REGIONAL T MEDICAL PERIODIC [address] [facility] PREVENTIV 0 0 PSC JEFF E MED EST PATIENT 12YRS OFFICE 03602 BRACKEN BRACKEN OUTPATIEN 0 0 [facility] 10 MINUTES OFFICE 11412 BRACKEN BRACKEN OUTPATIEN 0 0 [facility] 10 MINUTES OFFICE 23553 BRACKEN BRACKEN OUTPATIEN 0 0 [facility] 10 MINUTES EMERGENCY 64485 NORRIS RADHA, 0 0 EMERGENCY ALTO PASS L DEPARTMEN SERVICES T VISIT MODERATE ASSOCIATE SEVERITY HOSPITAL [facility] - 0 0 W [facility] EMERGENCY 33792 ME[facility]OWVIE 0 [facility] V[facility] MEDICAL LIMITED/ CENTER INOR PROB OFFICE 23138 BRACKEN BRACKEN OUTPATIEN 0 0 [facility] 10 MINUTES PERIODIC 93510 [facility] PREVENTIV 0 0 PSC [place] E MED EST PATIENT S EMERGENCY 80217 NORRIS YULIET, 0 0 EMERGENCY ELIOT DEPARTMEN SERVICES A T VISIT HIGH/URGE ASSOCIATE NT S [facility] - [facility] EMERGENCY 26058 MEADOWVIE 0 0 W DEPARTMEN REGIONAL T VISIT MEDICAL MODERATE CENTER SEVERITY OFFICE 67823 [facility]ACKEN BRACKEN OUTPATIEN 0 0 [facility] 10 MINUTES OFFICE 30254 BRACKEN BRACKEN OUTPATIEN 0 0 [facility] T VISIT 5 [facility] MINUT[facility] [place] - 9 9 [facility]PITAL OUTPATIEN [facility] T EMERGENCY 46677 EMERGENCY HERFEL, [address] [facility] T VISIT [facility] [place] NT SEVERITY OFFICE 96658 [facility]EN OUTPATIEN 9 9 [facility] T VISIT 5 [facility] MINUTES BANK ACCT OFFICE 35864 [facility] OUTPATIEN 9 9 [facility] T VISIT 5 [facility] MINUTES BANK ACCT OFFICE 79057 [facility] OUTPAT[facility]EN 9 9 [facility] T VISIT 5 [facility] MINUTES BANK ACCT OFFICE 02171 [facility] OUTPATIEN 9 9 [facility] T [facility] 10 BANK ACCT MINUTES OFFICE [address] [facility] [place] T NEW 45 MINUTES [facility] [facility] 69584 NORRIS ARROYO 9 9 EMERGENCY , [facility] SERVICES A T VISIT HIGH/URGE ASSOCIATE NT S SEVERITY EMERGENCY 16292 [facility] 9 W [facility] T VISIT MEDICAL MODERATE CENTER SEVERITY EMERGENCY 58653 [facility] 9 9 W [facility] T VISIT MEDICAL HIGH/URGE CENTER NT SEVERITY HOSPITAL [facility] - 9 9 [facility] 11215 NORRIS OSBORNE DEPT 9 9 EMERGENCY ELIZABETH L VISIT SERVICES HIGH SEVERITY& ASSOCIATE THREAT S FUNCJ OFFICE 23705 [facility] 9 9 [facility] T VISIT [facility] 15 BANK ACCT MINUTES [facility] 9 [facility] [facility] 9 9 [facility] T VISIT MODERATE SEVERITY EMERGENCY 90373 [facility] 9 9 W [facility] T VISIT MEDICAL LOW/MODER CENTER SEVERITY EMERGENCY 80870 NORRIS KRISHNAN, 9 9 EMERGENCY [facility] SERVICES T VISIT HIGH/URGE ASSOCIATE NT S SEVERITY [facility] 09730 [facility] 9 [facility] T VISIT MEDICAL MODERATE CENTER SEVERITY HOSPITAL [facility] 78249 NORRIS HORVATH, 9 9 EMERGENCY [facility] SERVICES A T VISIT HIGH/URGE ASSOCIATE NT S SEVERITY EMERGENCY 92844 NORRIS XIAO, 9 9 EMERGENCY [facility] SERVICES K T VISIT MODERATE ASSOCIATE SEVERITY S HOSPITAL [facility] - 9 [facility] 62581 [facility] 9 9 W [facility] T VISIT MEDICAL LOW/MODER CENTER SEVERITY OFFICE 13987 [facility] 9 9 [facility] T [facility] 15 BANK ACCT MINUTES OFFICE 64642 [facility] OUTPATIEN 9 9 [facility] 15 BANK ACCT MINUTES OFFICE 69054 [facility] OUTPATI[facility] 9 9 [facility] T NEW 20 [facility] MINUTES BANK ACCT [facility] 8 8 [facility] 74037 [facility] 8 8 W [facility] T VISIT MEDICAL LOW/MODER CENTER SEVERITY EMERGENCY 15246 NORRIS ALTAMIRANO, 8 8 EMERGENCY SHEYLA Marisela DEPARTMEN SERVICES T VISIT MODERATE ASSOCIATE SEVERITY S HOSPITAL [facility] - 8 8 [facility] EMERGENCY 31834 EMERGENCY OPAL, 8 8 CARE LISA F DEPARTMEN PHYS T VISIT [facility] [place] SE[place] EMERGENCY 60402 [facility] 8 8 [facility] T V[facility]IT LIMITED/M INOR PROB [facility]OSPITAL [facility] 8 8 [facility] OFFICE 75229 [facility] 8 8 [place] T VISIT FAMILY 25 CARE, MINUTES INC. EMERGENCY 46337 [facility] 8 8 [facility] T VISIT LIMITED/M INOR PROB EMERGENCY 72885 EMERGENCY BHATTI, 8 8 CARE VARUN L DEPARTMEN PHYS T VISIT [facility] [place] SEVERITY [facility] 8 8 [facility] OFFICE 65688 CHILDRENS MINNA III, CONSULTAT 8 8 [facility] NEW/ESTAB PATIENT 40 MIN [facility]OSPITAL [facility] 8 [address] [facility] - 8 8 [facility] EM[facility] 38757 [facility], 8 8 [facility]POLLO [facility]IN [facility] T VISIT MODERATE SEVERITY [facility] - 8 8 [facility] OFFICE 83254 [facility] 8 HOSPITAL T NEW 60 MINUTES PERIODIC 68618 [facility] 8 8 PO[place] ISA C E MED EST FAMILY PATIENT CARE, [id number] [facility] ST - 8 8 [facility] 71577 [facility], 8 8 SUSANPOLLO GONZALEZ Kari DEPARTMEN MED CTR T VISIT HIGH/URGE NT SEVERITY EMERGENCY 62482 ST 8 8 SUSAN DEPARTMEN T VISIT MEDICALCE MODERATE NTER SEVERITY EMERGENCY 58544 [facility], 8 8 SUSAN SONALI Mortensen DEPARTMEN MED CTR T VISIT HIGH/URGE NT SEVERITY [facility] ST - 8 8 SUSAN OUTPATIEN T MEDICALCE NTER EMERGENCY 43190 ST 8 8 SUSAN DEPARTMEN T VISIT MEDICALCE MODERATE NTER SEVERITY EMERGENCY 52292 ST 8 8 SUSAN DEPARTMEN T VISIT MEDICALCE MODERATE NTER SEVERITY EMERGENCY 33377 [facility] 8 8 VISHAL DAVIS DEPARTMEN MED CTR D T VISIT HIGH/URGE NT SEVERITY [facility]PITAL ST - 8 8 SUSAN OUTPATIEN T MEDICALCE NTER OFFICE 77232 [facility] 8 8 POINT ISA C T VISIT FAMILY 15 CARE, MINUTES INC. OFFICE 12145 [facility] 8 8 [place] , [place] T VISIT FAMILY 15 CARE, MINUTES INC. OFFICE 24688 [facility] 8 8 [place] T NEW 30 URGENT MINUTES CARE EMERGENCY 84917 ST 8 8 SUSAN DEPARTMEN T VISIT MEDICALCE MODERATE NTER SEVERITY [facility]PITAL ST - 8 8 SUSAN OUTPATIEN T MEDICALCE NTER EMERGENCY 44261 ST 8 8 SUSAN DEPARTMEN T VISIT MEDICALCE MODERATE NTER SEVERITY HOSPITAL ST - 8 8 SUSAN OUTPATIEN T MEDICALCE NTER
--- OUTSIDE RECORDS SUMMARY | 2017-07-05 13:44 | External Medical Summary Rpt | CCD ---
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 [facility] W/DETAIL INC INC ARTIE 1ST GESTATION US PREG 46351 NEVA PATRICIO UTERUS 6 FAMILY [facility] W/DETAIL HEALTH CTR ARTIE 1ST GESTATION URNLS DIP 08443 NEVA HERRMANNKI 6 FAMILY ALLISON STICK/TAB HEALTH LET RGNT CTR NON-AUTO W/O MICRSCP URNLS DIP 11840 NEVA CO HILL FLORA 6 FAMILY STICK/TAB HEALTH LET RGNT CTR NON-AUTO W/O MICRSCP IADNA 76431 LAB PRETTY LAB PRETTY PORFIRIO 6 BENJAMIN BENJAMIN SPECIES [facility]INGS DIRECT PROBE TQ IADNA 71532 LAB PRETTY LAB PRETTY GARDNEREL 6 BENJAMIN BENJAMIN LA [facility] VAGINALIS DIRECT PROBE TQ IADNA 90666 LAB PRETTY LAB PRETTY TRICHOMON 6 BENJAMIN BENJAMIN [facility] VAGINALIS DIRECT PROBE TQ URNLS DIP 54584 NEVA CO DAVIS LAURENT 6 FAMILY STICK/TAB HEALTH LET RGNT CTR NON-AUTO W/O MICRSCP URNLS DIP 30303 NEVA CO HOGGE ANGIE 6 FAMILY STICK/TAB HEALTH LET RGNT CTR NON-AUTO W/O MICRSCP URNLS DIP 47016 NEVA CO DAVIS LAURENT 6 FAMILY STICK/TAB HEALTH LET RGNT CTR NON-AUTO W/O MICRSCP COMPREHEN 95032 MERLY PICKARDHARRYEBEN SIVE 6 W W METABOLIC REGIONAL REGIONAL PANEL MEDICAL MEDICAL INITIAL 58154 NEVA ANA DAVIS LAURENT OBSERVATI 6 FAMILY ON HEALTH CARE/DAY CTR 30 MINUTES COLLECTIO 52129 MERLY MORELAND N VENOUS 6 W W BLOOD [facility] REGIONAL VENIPUNCT MEDICAL MEDICAL URE URNLS DIP 52122 NEVA PEREZ HOGNAZIA ANGIE 6 FAMILY STICK/TAB HEALTH LET RGNT CTR NON-AUTO W/O MICRSCP IADNA 91380 MEDICAL MEDICAL NEISSERIA 6 DIAGNOSTI [facility] GONORRHOE AE AMPLIFIED PROBE TQ IADNA 23385 MEDICAL MEDICAL CHLAMYDIA 6 [facility]NOSTI [facility]NO[facility] TRACHOMAT IS AMPLIFIED PROBE TQ CULTURE 80629 LAB PRETTY LAB PRETTY BACTERIAL 6 BENJAMIN BENJAMIN [facility] QUANTTATI VE COLONY COUNT URINE HEPATITIS 12309 LAB PRETTY LAB PRETTY C 6 BENJAMIN BENJAMIN ANTIBODY [facility] OBSTETRIC 63822 LAB PRETTY LAB PRETTY PANEL 6 BENJAMIN BENJAMIN [facility] DRUG TEST G0479 LAB PRETTY LAB PRETTY 6 BENJAMIN BENJAMIN PRESUMP;I [facility]INGS NSTRUMENT ED CHEMISTRY ANLYZER DRUG TST G0483 LAB PRETTY LAB PRETTY DEFINITV [address] ID [facility] METH P DAY 22/MORE DR CL CREATININ 53431 LAB PRETTY LAB PRETTY E OTHER 6 BENJAMIN BENJAMIN [place] [address] ARIK ELISE AMYLASE 6 [place] [address] ARIK ELISE LIPASE 6 [facility] INC INC INJECTION J2405 ARIK ARIK 6 [facility] ONDANSETR INC INC ON HCL PER 1 MG UNCLASSIF J3490 ARIK ELISE IED DRUGS 6 [facility] INC INC BLOOD 75217 ARIK ELISE COUNT 6 [facility] COMPLETE INC INC AUTO&AUTO DIFRNTL WBC URNLS DIP 24421 ARIK ARIK 6 [facility] STICK/TAB INC [place] [address] ARIK ELISE INFUSION 6 [facility] THERAPY/P INC INC ROPHYLAXI S /DX 1ST TO 1 HR BASIC 48666 ARIK ELISE METABOLIC 6 [facility] MEM [...] OR EQUAL ANY INDEX PER LENS FITTING 58856 RAJAT KIRAN SPECTACLE 6 S XCPT APHAKIA MONOFOCAL OPHTH 54291 RAJAT KIRAN MEDICAL 6 XM&EVAL COMPRHNSV ESTAB PT 1/> THER 71106 ARIK ELISE PROPH/DX 5 [facility] NJX IV INC INC PUSH SINGLE/1S T SBST/DRUG THERAPEUT 48932 ARIK ELISE IC 5 [facility] INJECTION INC INC IV PUSH EACH NEW DRUG GLUC BLD 80501 ARIK ELISE GLUC MNTR 5 [facility] DEV INC INC CLEARED FDA SPEC HOME USE SKIN TEST 19013 NEVA PEREZ HOLLEY TON 5 PRIMARY TUBERCULO CARE [facility] CENTER INTRADERM AL URINE 12894 ARIK ELISE 5 [facility] TEST INC INC VISUAL COLOR CMPRSN METHS CULTURE 09206 ARIK ELISE BACTERIAL 5 [facility] INC INC QUANTTATI VE COLONY COUNT URINE RADIOLOGI 49280 ARIK ELISE C 5 [facility] EXAMINATI INC INC ON PELVIS 1/2 VIEWS URNLS DIP 59900 ARIK ELISE 5 [facility] STICK/TAB INC INC LET REAGENT AUTO MICROSCOP Y RADEX 93818 ARIK ELISE SPINE 5 [facility] LUMBOSACR INC INC AL MINIMUM 4 VIEWS RADEX HIP 66086 ARIK ELISE 5 [facility] UNILATERA INC INC L COMPLETE MINIMUM 2 VIEWS GONADOTRO 02675 MEADOWVIE MEADOWVIE PIN 5 W W CHORIONIC REGIONAL REGIONAL MEDICAL MEDICAL QUANTITAT MAXINE COLLECTIO 94337 MEADOWVIE MEADOWVIE N VENOUS 5 W W BLOOD REGIONAL REGIONAL VENIPUNCT MEDICAL MEDICAL URE URINE 97551 ARIK ELISE 5 [facility] TEST INC INC VISUAL COLOR CMPRSN METHS IADNA 00997 MEDICAL MEDICAL CHLAMYDIA 5 DIAGNOSTI DIAGNOSTI [facility] LAB LLC TRACHOMAT IS AMPLIFIED PROBE TQ IADNA 51255 MEDICAL MEDICAL NEISSERIA 5 DIAGNOSTI DIAGNOSTI [facility] C LAB LLC GONORRHOE AE AMPLIFIED PROBE TQ CULTURE 42651 MEADOWVIE MEADOWVIE BACTERIAL 5 W W REGIONAL REGIONAL QUANTTATI MEDICAL MEDICAL VE COLONY COUNT URINE CULTURE 73555 MEADOWVIE MEADOWVIE BACTERIAL 5 W W REGIONAL REGIONAL QUANTTATI [place] [address] [facility] ABDOMEN & 4 MEDICAL NIKIA PELVIS IMAGING W/CONTRAS ASS T MATERIAL EGD 05328 [facility] TRANSORAL 4 TRACE DON BIOPSY GASTROEN SINGLE/MU LTIPLE ANES 90428 COMMONWEA MARCIAL UPPER GI 4 LTH TAO ENDOSCOPY ANESTHESI PROXIMAL A PSC TO DUODENUM INFUSION J7030 MEAWVIE MEADOWVIE NORMAL 4 W W SALINE [facility] SOLUTION MEDICAL MEDICAL 1000 CC CUL 93490 MERLY HOBSONWEBEN PRSMPTV 4 W W [facility] ORGANISM MEDICAL MEDICAL SCRN W/COLONY ESTIMJ URINE 64222 MEADOWEBEN MEADOWVIE 4 W W TEST [facility] VISUAL MEDICAL MEDICAL [place] [address] MEADOWEBEN MEADOWEBEN SURG 4 W W PATHOLOGY [facility] GROSS&ANTONETTE ROSCOPIC EXAM IMHISTOCH 02248 JAZLYNWEBEN HOBSONWEBEN EM/CYTCHM 4 W W 1ST [facility] ANTIBODY MEDICAL MEDICAL STAIN PROCEDURE AVULSION 44767 ARIK ELISE NAIL 4 [facility] PLATE INC INC PARTIAL/C OMPLETE SIMPLE 1 WEDGE 38988 AMANDEEP BERNSTEIN JERILYN EXCISION 4 SKIN NAIL FOLD RADEX [address] NASAL 3 SUSAN SUSAN BONES FT FT COMPLETE SABRINA SABRINA MINIMUM 3 [place] [address] ARIK ELISE INFUSION 2 [facility] THERAPY INC INC PROPHYLAX IS/DX EA HOUR 3D 32974 ARIK ELISE RENDERING 2 [facility] INC INC W/INTERP& POSTPROC DIFF WORK STATION THERAPEUT 95422 ARIK ELISE IC 2 [facility] INJECTION [place] [address] ARIK ELISE INFUSION 2 [facility] THERAPY/P INC INC ROPHYLAXI S /DX [address] [place] [address] [place] [address] AHSANY SYED ABDOMEN & 2 MEDICAL ROXANNE PELVIS IMAGING W/CONTRAS ASS T MATERIAL LOCM Q9967 ARIK ELISE 300-399 2 [facility] MG/ML INC INC IODINE CONCENTRA TION PER ML URINE 29529 ARIK ELISE 2 [facility] TEST INC INC VISUAL COLOR CMPRSN METHS COMPREHEN 72073 ARIK ELISE SIVE 2 [facility] METABOLIC INC INC PANEL BLOOD 28292 ARIK ELISE COUNT 2 [facility] COMPLETE INC INC AUTO&AUTO DIFRNTL WBC URNLS DIP 41158 ARIK ELISE 2 [facility] STICK/TAB INC INC [place] [address] ARIK ELISE STREPTOCO 2 [facility] CCUS INC INC GROUP A FRAMES V2020 RAJAT EARL [facility] PURCHASES 2 1 VISN V2103 EARLREBECCA EARL MAGNO PLANO 2 TO+/-4.00 D SPHER 0.12-2.00 D CYL EA DETERMINA 95614 EARL MAGNO EARL [facility] TION 2 REFRACTIV E STATE FITTING 50353 [facility] SPECTACLE 2 S XCPT APHAKIA MONOFOCAL OPHTH 05489 [facility] MEDICAL 2 XM&EVAL COMPRE NEW PT 1/> VST URNLS DIP 31548 ARIK ELISE 2 [facility] STICK/TAB INC INC LET REAGENT AUTO MICROSCOP Y URINE 22203 ARIK ELISE 2 [facility] TEST INC INC VISUAL COLOR CMPRSN METHS CULTURE 79047 ARIK ELISE BACTERIAL 2 [facility] INC INC QUANTTATI VE COLONY COUNT URINE CULTURE 56193 MEADOWVIE MEADOWVIE BACTERIAL 2 W W [facility] QUANTTATI MEDICAL MEDICAL VE COLONY COUNT URINE CUL BACT 95793 MEADOWVIE MEADOWVIE AEROBIC 2 [facility]ICAL DEFINITIV E EA ISOL URINE 75370 MEADOWVIE MEADOWVIE 2 W W TEST [facility] VISUAL MEDICAL MEDICAL COLOR CMPRSN METHS SUSCEPTIB 39374 MEADOWVIE MEADOWVIE LTY STDY 2 W W ANTIMICRB [facility] IA MEDICAL MEDICAL MICRO/AGA R DILUTJ URNLS DIP 56615 MEADOWVIE MEADOWVIE 2 W W STICK/TAB [facility] LET MEDICAL MEDICAL REAGENT AUTO MICROSCOP Y EXCISION 75834 PAWSAT PAWSAT NAIL 1 [place] [address] MEAWEBEN HOBSONWVIE ABDOMEN & 1 W W PELVIS [facility] W/O MEDICAL MEDICAL CONTRST 1/> BODY RE THER 20712 MERLY HOBSONWVIE PROPH/DX 1 W W NJX IV [facility] MEDICAL SINGLE/1S T SBST/[place] [address] JAZLYNWEBEN MEADOWVIE AMYLASE 1 W W [facility] 3D 78518 [facility] RENDERING 1 TAO W/INTERP RADIOLOGY & ASSOCI[place] [address] JAZLYNWEBEN MEAWVIE LIPASE 1 W W [facility] URNLS DIP 66133 JAZLYNWEBEN MEADOWVIE 1 W W STICK/TAB [facility] MEDICAL REAGENT AUTO MICROSCOP Y THERAPEUT 53176 JAZLYNWEBEN MEAWVIE IC 1 W W INJECTION [facility] IV PUSH [facility] MEDICAL EACH NEW DRUG BLOOD 20892 MERLY MEAWVIE COUNT 1 W W COMPLETE [facility] AUTO&AUTO MEDICAL MEDICAL DIFRNTL WBC COLLECTIO 83592 JAZLYNWEBEN MEAWVIE N VENOUS 1 W W BLOOD [facility] VENIPUNCT MEDICAL MEDICAL URE URINE 11824 JAZLYNWEBEN MEAWVIE 1 W W TEST [facility] VISUAL MEDICAL MEDICAL COLOR CMPRSN METHS COMPREHEN 23339 JAZLYNWEBEN MEADOWVIE SIVE 1 W W METABOLIC [facility] PANEL MEDICAL MEDICAL AVULSION 78743 MEAWEBEN MEAWVIE NAIL 0 W W PLATE [facility] PARTIAL/C MEDICAL MEDICAL OMPLETE SIMPLE 1 EXCISION 04603 NORRIS TREJOO NAIL 0 EMERGENCY DEV [facility] PERMANENT REMOVAL RADEX 91001 MEAWEBEN MEAWVIE SPINE 0 W W CERVICAL [facility] 2 OR 3 MEDICAL [facility] CENTER CENTER RPR&REFIT 03578 RAMO EARL, G 0 VISION PATRICE A SPECTACLE S EXCEPT APHAKIA 1 VISN V2103 RAMO EARL, PLANO 0 VISION PATRICE A TO+/-4.00 D SPHER 0.12-2.00 D CYL EA FRAMES V2020 RAMO EARL PURCHASES 0 VISION PATRICE A RADIOLOGI 50475 [facility] C EXAM 9 [facility] CHEST 2 EAST EAST VIEWS FRONTAL&L ATERAL ECG 97076 [facility] ROUTINE 9 [facility] ECG EAST EAST W/LEAST 12 LDS TRCG ONLY W/O I&R RADEX 41023 [facility], WRIST 2 9 SHAYNA S VIEWS RADIOLOGY ASSOCIATE S [facility] RADEX 80288 [facility], FOREARM 2 9 SHAYNA S VIEWS RADIOLOGY ASSOCIATE S PSC RADEX 59803 MEADOWVIE MEADOWVIE WRIST 9 W W COMPLETE [facility]AL MINIMUM 3 MEDICAL MEDICAL VIEWS CENTER CENTER 3D 93173 [facility], RENDERING 9 SHAYNA S W/INTERP RADIOLOGY & POSTPROCE [place] [address] [facility], ABDOMEN 9 SHAYNA S W/CONTRAS RADIOLOGY T MATERIAL ASSOCIATE S [facility] CT PELVIS 60962 MEADOWVIE MEADOWVIE 9 W W W/CONTRAS [facility] T MEDICAL MEDICAL MATERIAL CENTER CENTER COLLECTIO 05547 MEADOWVIE MEADOWVIE N VENOUS 9 W W BLOOD [facility] VENIPUNCT [place] [address] MEADOWVIE MEADOWVIE INFUSION 9 W W HYDRATION [facility] INITIAL MEDICAL MEDICAL 31 MIN-1 CENTER CENTER HOUR BLOOD 16704 MEADOWVIE MEADOWVIE COUNT 9 W W COMPLETE REGIONAL REGIONAL AUTO&AUTO MEDICAL MEDICAL DIFRNTL CENTER CENTER WBC RADIOLOGI 39048 [facility], EXAM 9 SHAYNA S CHEST 2 RADIOLOGY VIEWS FRONTAL&L ASSOCIATE ATERAL S [facility] URNLS DIP 45869 MEADOWVIE MEADOWVIE 9 W W STICK/TAB [facility]AL [facility] LET MEDICAL MEDICAL REAGENT CENTER CENTER AUTO MICROSCOP Y URINE 07545 MEADOWVIE MEADOWVIE 9 W W TEST [facility]AL [facility] VISUAL MEDICAL MEDICAL COLOR CENTER CENTER CMPRSN METHS BASIC 92139 MEADOWVIE MEADOWVIE METABOLIC 9 W W PANEL REGIONAL [facility] CALCIUM MEDICAL MEDICAL TOTAL CENTER CENTER RADEX [address] [facility] [address] [place] [address] MINIMUM 2 EAST EAST VIEWS AVULSION 83313 MEADOWVIE MEADOWVIE NAIL 9 W W PLATE [facility] PARTIAL/C MEDICAL MEDICAL OMPLETE CENTER CENTER SIMPLE 1 URNLS DIP 82100 MEADOWVIE MEADOWVIE 9 W W STICK/TAB [facility]AL [facility] LET MEDICAL MEDICAL REAGENT [place] [address] MEADOWVIE MEADOWVIE INFUSION 9 W W THERAPY/P [facility] ROPHYLAXI MEDICAL MEDICAL S /DX 1ST CENTER CENTER TO 1 HR BLOOD 11882 MEADOWVIE MEADOWVIE COUNT 9 W W COMPLETE [facility] AUTO&AUTO MEDICAL MEDICAL DIFRNTL CENTER CENTER WBC RADIOLOGI 05060 ELIZABETH Hakan GARCIA EXAM 9 SHAYNA S CHEST 2 RADIOLOGY VIEWS FRONTAL&L ASSOCIATE ATERAL S PSC COMPREHEN 43924 MEADOWVIE MEADOWVIE SIVE 9 W W METABOLIC [facility] PANEL MEDICAL MEDICAL CENTER CENTER THER 01618 MEADOWVIE MEADOWVIE PROPH/DX 9 W W NJX IV [facility] PUSH MEDICAL MEDICAL SINGLE/1S CENTER CENTER T SBST/DRUG COLLECTIO 77322 MEADOWVIE MEADOWVIE N VENOUS 9 W W BLOOD [facility] VENIPUNCT MEDICAL MEDICAL URE CENTER CENTER SEDIMENTA 32616 MEADOWVIE MEADOWVIE TION RATE 9 W W RBC [facility] NON-AUTOM MEDICAL MEDICAL ATED CENTER CENTER URINE 22241 MEADOWVIE MEADOWVIE 9 W W TEST [facility] VISUAL MEDICAL MEDICAL COLOR CENTER CENTER CMPRSN METHS CULTURE 71508 MEADOWVIE MEADOWVIE BACTERIAL 9 W W BLOOD [facility] AEROBIC MEDICAL MEDICAL W/[place] [address] MEADOWVIE MEADOWVIE INFLUENZA 9 W W A/B EACH [facility] MEDICAL MEDICAL CENTER CENTER IAADIADOO 29214 MEADOWVIE MEADOWVIE 9 W W STREPTOCO REGIONAL REGIONAL CCUS MEDICAL MEDICAL GROUP A CENTER CENTER CUL 15413 MEADOWVIE MEADOWVIE PRSMPTV 9 W W PTHGNC REGIONAL [facility]IONAL ORGANISM MEDICAL MEDICAL SCRN CENTER CENTER W/COLONY ESTIMJ CUL BACT 89269 MEADOWVIE MEADOWVIE AEROBIC 8 W W ADDL REGIONAL REGIONAL METHS MEDICAL MEDICAL DEFINITIV CENTER CENTER E EA ISOL CUL BACT 02616 MEADOWVIE MEADOWVIE XCPT 8 W W URINE REGIONAL REGIONAL BLOOD/STO MEDICAL MEDICAL OL CENTER CENTER AEROBIC ISOL SMR PRIM 17227 MEADOWVIE MEADOWVIE SRC 8 W W GRAM/GIEM REGIONAL REGIONAL SA STAIN MEDICAL MEDICAL BCT CENTER CENTER FUNGI/BJ L SUSCEPTIB 26963 MEADOWVIE MEADOWVIE LTY STDY 8 W W ANTIMICRB [facility] IAL MEDICAL MEDICAL MICRO/AGA CENTER CENTER R DILUTJ SUSCEPTIB 93365 MEADOWVIE MEADOWVIE ILITY 8 W W STUDY [facility] ANTIMICRO MEDICAL MEDICAL BIAL DISK CENTER CENTER METHOD INCISION 80308 MEADOWVIE MEADOWVIE & 8 W W DRAINAGE [facility] ABSCESS MEDICAL MEDICAL SIMPLE/SI CENTER CENTER NGLE FRAMES V2020 RAJAT EARL, PURCHASES 8 PATRICE A PATRICE A OPHTH 58260 RAJAT EARL, MEDICAL 8 PATRICE A PATRICE A XM&EVAL COMPRE NEW PT 1/> VST RPR&REFIT 43405 RAJAT EARL G 8 PATRICE A PATRICE A SPECTACLE S EXCEPT APHAKIA SPHERE V2100 RAJAT EARL, SINGLE 8 PATRICE A PATRICE A VISION PLANO +/- 4.00 [place] NFS [address] [facility] CHILDREN THER [address] [place] [address] PROPH/DX 1ST >1 HR LEVEL III 25924 [facility] CHILDRENS SURG [address] [place] [address] PATHOLOGY GROSS&ANTONETTE ROSCOPIC EXAM ANESTHESI 18904 [facility] HOSU, A MEDICAL MARCIO G INTRAORAL SERVICES WITH INC BIOPSY NOS TONSILLEC 51549 [facility] MINNA III, KAREEM & 8 HOSP MED PETER ADEN[facility] CTR M KAREEM <AGE 13 THER [address] [facility] PROPH/DX 8 [facility] SUBQ/[place] [address] CHILDRENS FIERRO, MAXILLOFA 8 [facility] VARUN Ariela CIAL W/O CTR CONTRAST MATERIAL RADIOLOGI 11350 [facility] OESTREICH C EXAM 8 [facility] E CHEST 2 CTR VIEWS FRONTAL&L ATERAL SPMTRY 11066 [facility]ILDRENS W/VC 8 [facility] EXPIRATOR Y RADHA W/WO MXML VOL VNTJ PERCUTANE 38072 [facility]ILDRENS OUS TESTS 8 [facility] W/ALLERGE BAUTISTA EXTRACTS HEPA 21602 [facility], VACCINE 2 8 POINT ISA C DOSE FAMILY SCHEDULE CARE, PED/ADOLE INC. SC IM USE 4VHPV 36588 [employer], VACCINE 3 8 POINT ISA C DOSE FAMILY SCHEDULE CARE, FOR IM INC. USE MCV4 24526 [employer], MENACWY 8 POINT ISA C CONJ VACC FAMILY GRPS CARE, [id number] INC. IM USE TDAP 99020 [facility]ALTH [employer], VACCINE 7 8 POINT ISA C YRS/> IM FAMILY CARE, INC. RADHA 97768 [facility]ALTH [employer], VACCINE 8 POINT ISA C LIVE FOR FAMILY SUBCUTANE CARE, [place] [address] ST STREPTOCO 8 SUSAN SUSAN CCUS GROUP A MEDICALCE MEDICALCE NTER NTER RADEX 12177 RADIOLOGY MAURICE, FOOT 8 COMPLETE ASSOCIATE SUSAN MINIMUM 3 S PSC A VIEWS RADEX 56036 RADIOLOGY VIMAL ANKLE 8 III, COMPLETE ASSOCIATE BRIA MINIMUM 3 S PSC VIEWS APPLICATI [address] ON OF 8 SUSAN SUSAN SPLINT MEDICALCE MEDICALCE NTER NTER IAADIADOO 06211 HEALTH TONY, 8 POINT ISA C STREPTOCO FAMILY CCUS CARE, GROUP A INC. NAIL 86.23 Leigh Ann Bernstein MD Encounters Encounter Start End Date Code Location Performer Type Date [facility] P[facility] T VISIT 15 MINUTES OFFICE 46223 [facility] LOVE OUTPATIEN 7 7 PHYSICIAN T VISIT S GROUP 25 MINUTES [facility] 40934 [facility] OUTPATIEN 7 7 FAMILY T VISIT HEALTH 15 CTR MINUTES EMERGENCY 00512 ANDREE ANDRADE DEPT 7 7 PHYSICIAN VISIT S, PLLC HIGH SEVERITY& THREAT FUN [facility] - 7 7 [facility] OUTPATIEN INC T EMERGENCY 46127 [facility] 7 7 [facility] DEPARTMEN INC T VISIT HIGH/URGE NT SEVERITY OFFICE 63020 [facility] OUT[facility]IEN 7 7 [facility] T VISIT 5 INC MINUTES [facility] - 7 7 [facility] OUT[facility]IEN INC T OFFICE 06261 [facility] OUTPATIEN 7 7 [facility] T VISIT 5 INC MINUTES [facility] - 7 7 [facility]EN INC T [facility] - 7 7 [facility] - 7 7 [facility] OUTPATIEN INC T OFFICE 03330 [facility] LUPE OUTPATIEN 7 7 PHYSICIAN T VISIT S GROUP 25 MINUTES HOSPITAL [facility] - 7 7 [facility] OUTPATIEN INC T OFFICE 15310 [facility] LOVE OUTPATIEN 7 7 PHYSICIAN T VISIT S GROUP 25 MINUTES OFFICE 50210 [facility] OUTPATIEN 7 7 [facility] T VISIT 5 INC MINUTES [facility]OSPITAL [facility] - 7 7 [facility] - 7 7 [facility] 7 7 [facility] OUTPATIEN [facility] EMERGENCY 20853 [facility] 7 7 [facility] [place] VISIT MODERATE SEVERITY EMERGENCY 25431 ANDREE [facility] DEPT 7 7 PHYSICIAN U VISIT S, PLL HIGH SEVERITY& THREAT REPLACED BY [facility] RAIK - 7 7 [facility] OUTPATIEN [facility] - 7 7 [facility] MERLY - 7 7 [facility] MEDICAL OFFICE 93379 [place] H[place] OUTPATIEN 7 7 FAMILY T VISIT HEALTH 15 CTR MINUTES OFFICE 67778 [facility] DIAZ OUTPATIEN 7 7 FAMILY T VISIT HEALTH 15 CTR [facility] MERLY - 7 7 [facility] 00318 [facility] [place] EMILY OUTPATIEN 6 6 FAMILY T VISIT HEALTH 15 CTR [facility] MER[facility] - 6 6 W [facility] ARIK - 6 6 [facility] 62605 [place] H[place] FLORA OUTPATIEN 6 6 FAMILY T VISIT HEALTH 15 CTR MINUTES OFFICE 41599 [facility] [place] BECKYGE ANGIE OUTPATIEN 6 6 FAMILY T VISIT HEALTH 15 CTR MINUTES OFFICE 49388 [facility] [place] OUTPATIEN 6 6 W GENERAL DESTINEE T NEW 30 SURGERY [facility] - 6 6 W [facility] 02401 [facility] FARRELL OUTPATIEN 6 6 PHYSICIAN T NEW 30 S GROUP [facility] - 6 6 [facility] 97751 [place] SAVANNAHZESKI OUTPATIEN 6 6 FAMILY ALLISON T VISIT HEALTH 15 CTR MINUTES OFFICE 01049 [facility] HINES OUTPATIEN 6 6 FAMILY T VISIT HEALTH 15 CTR MINUTES OFFICE 70704 NEVA DAVIS LAURENT OUTPATIEN 6 6 FAMILY T VISIT HEALTH 15 CTR MINUTES OFFICE 94600 NEVA ANA DIAZ ANGIE OUTPATIEN 6 6 FAMILY T VISIT HEALTH 15 CTR MINUTES HOSPITAL MEADOWVIE - 6 6 W OUTPATIEN REGIONAL T MEDICAL OFFICE 07721 NEVA DAVIS LAURENT OUTPATIEN 6 6 FAMILY T VISIT HEALTH 15 CTR MINUTES OFFICE 70324 NEVA DIAZ ANGIE OUTPATIEN 6 6 FAMILY T VISIT HEALTH 10 CTR MINUTES OFFICE 46674 [facility] OUTPATIEN 6 6 PSC JEFF T VISIT 15 MINUTES OFFICE 75385 NEVA ANA DIAZ ANGIE OUTPATIEN 6 6 FAMILY T VISIT HEALTH 15 CTR MINUTES EMERGENCY 94879 ANDREE HARTMAN 6 6 PHYSIC[facility]/URGE NT SEVERITY EMERGENCY 10249 [facility] 6 6 [facility] DEPARTMEN INC T VISIT LOW/MODER SEVERITY [facility]OSPITAL [facility] - 6 6 [facility] INC T OFFICE 98039 [facility] OUT[facility] 6 6 PSC GAR T VISIT 25 MINUTES EMERGENCY 13891 [facility] 6 6 [facility] DEPARTMEN INC T VISIT LIMITED/M INOR PROB HOSPITAL [facility] - 6 6 [facility] OUTPATIEN INC T EMERGENCY 50763 ANDREE BAEZ 6 6 PHYSICIAN U NIKIA DEPARTMEN S, [facility] MODERATE SEVERITY EMERGENCY 88349 [facility] 5 5 [facility] DEPARTMEN INC T VISIT HIGH/URGE NT SEVERITY HOSPITAL [facility] - 5 5 [facility] OUTPATIEN INC T OFFICE 27524 NEVA FREEMAN OUTPATIEN 5 5 PRIMARY T VISIT CARE 10 CENTER [facility] ARIK - 5 5 [facility] OUTPATIEN INC T EMERGENCY 57274 ARIK 5 5 [facility] DEPARTMEN INC T VISIT LOW/MODER SEVERITY HOSPITAL MEAWVIE - 5 5 W OUTPATIEN REGIONAL T MEDICAL OFFICE 86540 NEVA MCGOWAN OUTPATIEN 5 5 PRIMARY T VISIT CARE 15 [facility]K - 5 5 [facility] OUTPATIEN INC T EMERGENCY [address] [facility] T VISIT LOW/MODER SEVERITY EMERGENCY 62625 ANDREE BAEZ 5 5 PHYSICIAN U [facility] S, [facility] T VISIT MODERATE SEVERITY PERIODIC 47968 NEVA MCGOWAN PREVENTIV 5 5 PRIMARY E MED EST CARE PATIENT CENTER 18-39 YRS EMERGENCY 80810 [facility] 5 5 DANYELL CHR DEPARTMEN EMERGENCY T VISIT PHYS HIGH/URGE NT SEVERITY OFFICE 87055 [facility] OUTPATIEN 5 5 PSC JEFF T VISIT 15 MINUTES OFFICE 91138 [facility] OUTPATIEN 5 5 PSC JEFF T VISIT 15 MINUTES HOSPITAL MEAIRAIDA - 5 5 W OUTPATIEN REGIONAL T MEDICAL OFFICE 21250 [facility] OUTPATIEN 5 5 PSC JEFF T VISIT 15 MINUTES HOSPITAL MERLY - 5 5 W OUTPATIEN REGIONAL T MEDICAL EMERGENCY 72001 [facility] 4 DANYELL VISIT EMERGENCY HIGH PHYS SEVERITY& THREAT [facility] MERLY - 4 4 W OUTPATIEN REGIONAL T MEDICAL OFFICE 38635 YUKO BRADLEYER OUTPATIEN 4 4 DON DON T NEW 45 MINUTES OFFICE 52672 [facility] XIAO OUTPATIEN 4 4 JEFF JEFF T VISIT 15 MINUTES EMERGENCY 95696 [facility] 4 4 [facility] DEPARTMEN INC T VISIT LOW/MODER SEVERITY EMERGENCY 34846 AIDE NOBLE 4 4 III WILLIS III WILLIS DEPARTMEN T VISIT MODERATE SEVERITY HOSPITAL [facility] - 4 4 [facility] OUTPATIEN INC T OFFICE 34597 [facility] OUTPATIEN 4 4 JEFF JEFF T VISIT 15 MINUTES Emergency TYLER Bernstein MD (ER) 4 14:17 4 15:14 [facility] ARIK De La Cruz 4 [facility] OUTPATIEN INC T EMERGENCY 24473 AMANDEEP JEAN-BAPTISTE 4 4 DEPARTMEN T VISIT MODERATE SEVERITY OFFICE 62129 [facility] OUTPATIEN 3 3 JEFF JEFF T VISIT 15 MINUTES OFFICE 17664 BRACK[facility] BRACKEN OUTPATIEN [address] [place] [address] T VISIT 5 HIGH HIGH MINUTES [facility] PERIODIC 63049 [facility] NINOSKA PURCELLIV 3 3 PSC JEFF E MED EST PATIENT 12-17YRS EMERGENCY 37050 SHAHIDA ARTURO PINEDO HO 3 3 DEPARTMEN T VISIT HIGH/URGE NT SEVERITY [facility]PITAL ST - 3 3 SUSAN OUTPATIEN FT T [facility] [address] 3 3 SUSAN DEPARTMEN FT T VISIT SABRINA MODERATE SEVERITY OFFICE 92033 [facility]ACK[facility] BRACKEN OUTPATIEN 3 3 [facility] T VISIT HIGH HIGH 10 [facility] MINUTES OFFICE 46565 BRACKEN BRACKEN OUTPATIEN 3 3 [facility] T VISIT HIGH HIGH 15 [facility]OL MINUTES HOSPITAL ARI[facility] - 2 2 [facility] OUTPATIEN INC T EMERGENCY 42817 ARIK 2 2 [facility] DEPARTMEN INC T VISIT HIGH/URGE NT SEVERITY EMERGENCY 35948 NORRIS YUEN DEPT 2 2 EMERGENCY ADDIE VISIT SERVICES HIGH SEVERITY& THREAT FUNCJ OFFICE 78471 [facility]ACK[facility] BRACKEN OUTPATIEN 2 2 [facility] T VISIT HIGH HIGH 10 [facility] MINUT[facility] OFFICE 40396 BRACKEN BRACKEN OUTPATIEN 2 2 [facility] T VISIT HIGH HIGH 10 [facility] MINUTES EMERGENCY 88120 AIDE NOBLE 2 2 III WILLIS III WILLIS DEPARTMEN T VISIT MODERATE SEVERITY HOSPITAL ARI[facility] - 2 2 [facility] OUTPATIEN INC T EMERGENCY 65006 ARI[facility] 2 2 [facility] DEPARTMEN INC T VISIT LOW/MODER SEVERITY OFFICE 27999 BRACKEN BRACKEN OUTPATIEN 2 2 [facility] T VISIT HIGH HIGH 10 [facility] MINUTES OFFICE 72617 BRACKEN BRACKEN OUTPATIEN 2 2 [facility] T VISIT HIGH HIGH 15 [facility] MINUTES OFFICE 15274 NINOSKA XIAO OUTPATIEN 2 2 [facility] JEFF T VISIT 15 MINUTES HOSPITAL ARIK - 2 2 [facility] OUTPATIEN INC T EMERGENCY 24448 VENTURA LISA VENTURA LISA 2 2 DEPARTMEN T VISIT HIGH/URGE NT SEVERITY EMERGENCY 01063 ARIK 2 2 [facility] DEPARTMEN INC T VISIT LOW/MODER SEVERITY EMERGENCY 60371 NORRIS HORVATH 2 2 EMERGENCY CARLYN DEPARTMEN SERVICES T VISIT HIGH/URGE NT SEVERITY EMERGENCY 48931 MERLY SALAZAR 2 2 [facility] T VISIT MEDICAL MODERATE SEVERITY HOSPITAL MERLY - 2 2 W OUTPATIEN REGIONAL T MEDICAL OFFICE 53466 KIMBER QUIROGA OUTPATIEN 1 1 NOV MAR T NEW 20 MINUTES OFFICE 45871 N[facility]OSKA XIAO OUTPATIEN 1 1 [facility] T VISIT 15 MINUTES EMERGENCY 29327 ARIK 1 1 [facility] DEPARTMEN INC T VISIT LOW/MODER SEVERITY HOSPITAL ARIK - 1 1 [facility] OUTPATIEN INC T EMERGENCY 12396 NORRIS ANDRADE 1 1 [facility] T VISIT MODERATE SEVERITY OFFICE 10816 BRACKEN BRACKEN OUTPATIEN 1 1 [facility] 10 [facility]UTES HOSPITAL MERLY - 1 1 W [facility] REGIONAL T MEDICAL EMERGENCY 34770 NORRIS HORVATH DEPT 1 1 EMERGENCY CARLYN VISIT SERVICES HIGH SEVERITY& THREAT FUNCJ EMERGENCY 78844 MERLY 1 1 [facility] REGIONAL T VISIT MEDICAL HIGH/URGE NT SEVERITY OFFICE 50915 BRACKEN BRACKEN OUTPATIEN 1 1 [facility] 10 MINUTES OFFICE 18357 [facility]ACKEN BRACKEN OUTPATIEN 1 1 [facility] 10 MINUTES OFFICE 84150 BRACKEN BRACKEN OUTPATIEN 1 1 [facility] 10 MINUTES OFFICE 10992 BRACKEN BRACKEN OUTPATIEN 1 1 [facility] 10 MINUTES OFFICE 41484 BRACKEN BRACKEN OUTPATIEN 0 0 [facility] 10 MINUTES OFFICE 59806 BRACKEN BRACKEN OUTPATIEN 0 0 [facility] 10 MINUTES OFFICE 62678 [facility]ACK[facility] BRACKEN OUTPATIEN 0 0 [facility] 10 MINUTES EMERGENCY 48253 NORRIS MACIAS 0 0 EMERGENCY DEV DEPARTMEN SERVICES T VISIT MODERATE [facility] HOSPITAL MEADOWVIE - 0 0 W OUTPATIEN REGIONAL T MEDICAL PERIODIC 66279 K[facility] C[facility] PREVENTIV 0 0 PSC JEFF E MED EST PATIENT 12YRS OFFICE 48279 BRACKEN BRACKEN OUTPATIEN 0 0 [facility] 10 MINUTES OFFICE 85354 BRACKEN BRACKEN OUTPATIEN 0 0 [facility] 10 MINUTES OFFICE 30408 [facility]ACK[facility] BRACKEN OUTPATIEN 0 0 [facility] 10 MINUTES EMERGENCY 80597 NORRIS RADHA, 0 0 EMERGENCY [place] DEPARTMEN SERVICES T VISIT MODERATE ASSOCIATE SEVERITY HOSPITAL MEADOWVIE - 0 0 W OUTPATIEN [facility] C[facility] EMERGENCY 41475 MEADOWVIE 0 0 W [facility]REGENCY [facility] VISIT MEDICAL LIMITED/ CENTER INOR PROB OFFICE 67959 BRACKEN BRACKEN OUTPATIEN 0 0 [facility] 10 MINUTES PERIODIC 24182 [facility] PREVENTIV 0 0 PSC SANTIAGO R E MED EST PATIENT S EMERGENCY 07765 NORRIS YULIET, 0 0 EMERGENCY [place] DEPARTMEN SERVICES A T VISIT HIGH/URGE ASSOCIATE NT S [facility] HOSPITAL MEADOWVIE - 0 0 W [facility] T MEDICAL CENTER EMERGENCY 85333 MEADOWVIE 0 0 W DEPARTMEN REGIONAL T VISIT MEDICAL MODERATE CENTER SEVERITY OFFICE 49219 [facility]ACK[facility] BRACKEN OUTPATIEN 0 0 [facility] 10 MINUTES OFFICE 58008 BRACKEN BRACKEN OUTPATIEN 0 0 [facility] T VISIT 5 [facility] MIN[facility] [facility] - 9 9 [facility] OUTPATIEN [facility] T EMERGENCY 84116 EMERGENCY HERFEL, 9 9 CARE LISA [facility] T VISIT [facility] [place] NT SEVERITY OFFICE 59953 [facility] OUTPATIEN 9 9 [facility]LE T VISIT 5 [facility] MINUTES BANK ACCT OFFICE 67058 [facility] OUTPATIEN 9 9 [facility] T VISIT 5 [facility] MINUTES BANK ACCT OFFICE 43219 [facility] OUTPATIEN 9 9 [facility] T VISIT 5 [facility] MINUTES BANK ACCT OFFICE 47908 [facility] OUTPATIEN 9 9 [facility] T VISIT [facility] 10 BANK ACCT MINUTES OFFICE 50850 [facility]ARE [facility] 9 PSC SANTIAGO R T NEW 45 MINUTES HOSPITAL [facility] [place] EM[facility]ENC[facility] 43634 NORRIS ARROYO 9 9 EMERGENCY , [facility] SERVICES A T VISIT HIGH/URGE ASSOCIATE NT S SEVERITY EMERGENCY 30576 [facility] T VISIT MEDICAL MODERATE CENTER SEVERITY EMERGENCY 21209 [facility] 9 [facility] T VISIT MEDICAL HIGH/URGE CENTER NT SEVERITY [facility]OSPITAL [facility] 9 9 [facility] EMERGENCY 41669 NORRIS OSBORNE DEPT 9 9 EMERGENCY ELIZABETH L VISIT SERVICES HIGH SEVERITY& ASSOCIATE THREAT S FUNCJ OFFICE 98859 [facility] OUTPATIEN 9 9 [facility] T VISIT [facility] 15 BANK ACCT MINUTES [facility]GENC[facility] [facility] 9 9 [facility] T VISIT MODERATE SEVERITY EMERGENCY 30447 [facility] 9 9 [facility] T VISIT MEDICAL LOW/MODER CENTER SEVERITY EMERGENCY 30443 NORRIS KRISHNAN, 9 9 EMERGENCY [facility] SERVICES T VISIT HIGH/URGE ASSOCIATE NT S SEVERITY [facility]OSPITAL [facility] 12932 [facility] 9 9 [facility] VISIT MEDICAL MODERATE CENTER SEVERITY [facility] 9 9 [facility] EMERGENCY 29221 NORRIS HORVATH, 9 9 EMERGENCY [facility] SERVICES A T VISIT HIGH/URGE ASSOCIATE NT S SEVERITY EMERGENCY 30195 NORRIS XIAO, 9 9 EMERGENCY [facility] SERVICES K T VISIT MODERATE ASSOCIATE SEVERITY S HOSPITAL [facility] 9 9 [facility] 53823 [facility] 9 [facility] T VISIT MEDICAL LOW/MODER CENTER SEVERITY OFFICE 23054 [facility] OUTPATIEN 9 9 [facility] T [facility]ISIT [facility] 15 BANK ACCT MINUTES OFFICE 00801 [facility] OUTPATIEN 9 9 [facility] 15 BANK ACCT MINUTES OFFICE 05436 [facility] OUTPATIEN 9 9 [facility] T NEW 20 [facility] MINUTES BANK ACCT [facility] - 8 [facility] 41215 [facility] 8 8 [facility] T VISIT MEDICAL LOW/MODER CENTER SEVERITY EMERGENCY 07420 NORRIS ALTAMIRANO, 8 8 EMERGENCY SHEYLA Marisela DEPARTMEN SERVICES T VISIT MODERATE ASSOCIATE SEVERITY S HOSPITAL [facility] - 8 8 [facility] EMERGENCY 15391 EMERGENCY OPAL, 8 8 CARE LISA F DEPARTMEN PHYS T VISIT [facility] [place] [place] SE[place]ITY EMERGENCY 70656 [facility] 8 8 [facility] T VISIT LIMITED/M INOR PROB HOSPITAL [facility] 8 8 [facility] OFFICE 47400 [facility] 8 8 [place] T VISIT FAMILY 25 CARE, MINUTES INC. EMERGENCY 04712 [facility] 8 8 [facility] T VISIT LIMITED/M INOR PROB EMERGENCY 45489 EMERGENCY BHATTI, 8 8 CARE VARUN L DEPARTMEN PHYS T VISIT [facility]ATE [place] SEVERITY [facility] 8 8 [facility] OFF[facility] 35728 CHILDRENS MINNA III, CONSULTAT 8 8 [facility] NEW/ESTAB PATIENT 40 MIN [facility]OSPITAL [facility] 8 8 [facility] - 8 8 [facility] 57489 [facility], 8 8 SUSANPOLLO CRAIN T DEPARTREGENCY [facility] T VISIT MODERATE SEVERITY HOSPITAL [facility] - 8 8 [facility] OFFICE 85191 [facility] 8 8 HOSPITAL T NEW 60 MINUTES PERIODIC 04869 [facility] 8 8 POINT ISA C E MED EST FAMILY PATIENT CARE, 5-[address]YRS [address] [facility] [facility] - 8 8 [facility] 01234 [facility], 8 8 SUSANPOLLO GONZALEZ Kari DEPARTMEN MED CTR T VISIT HIGH/URGE NT SEVERITY EMERGENCY [address]8634 ST 8 8 SUSAN DEPARTMEN T VISIT MEDICALCE MODERATE NTER SEVERITY EMERGENCY 49447 [facility], 8 8 SUSAN SONALI Mortensen DEPARTMEN MED CTR T VISIT HIGH/URGE NT SEVERITY HOSPITAL ST - 8 8 SUSAN OUTPATIEN T MEDICALCE NTER EMERGENCY 69963 ST 8 8 SUSAN DEPARTMEN T VISIT MEDICALCE MODERATE NTER SEVERITY EMERGENCY 13716 ST 8 8 SUSAN DEPARTMEN T VISIT MEDICALCE MODERATE NTER SEVERITY EMERGENCY 50512 [facility] 8 8 VISHAL DAVIS DEPARTMEN MED CTR D T VISIT HIGH/URGE NT SEVERITY HOSPITAL ST - 8 8 SUSAN OUTPATIEN T MEDICALCE NTER OFFICE 00093 [facility] 8 8 POINT ISA C T VISIT FAMILY 15 CARE, MINUTES INC. OFFICE 85443 [facility] 8 8 POINT , [place] T VISIT FAMILY 15 CARE, MINUTES INC. OFFICE 66184 [facility] 8 8 [place] T NEW 30 URGENT MINUTES CARE EMERGENCY 97820 ST 8 8 SUSAN DEPARTMEN T VISIT MEDICALCE MODERATE NTER SEVERITY HOSPITAL ST - 8 8 SUSAN OUTPATIEN T MEDICALCE NTER EMERGENCY 94457 ST 8 8 SUSAN DEPARTMEN T VISIT MEDICALCE MODERATE NTER SEVERITY HOSPITAL ST - 8 8 SUSAN OUTPATIEN T MEDICALCE NTER
--- OUTSIDE RECORDS SUMMARY | 2017-07-05 13:55 | External Medical Summary Rpt | CCD ---
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 MEDICAL MEDICAL URE URNLS DIP 94051 MERLY HOBSONWVIE 7 W W STICK/TAB REGIONAL REGIONAL LET MEDICAL MEDICAL REAGENT AUTO MICROSCOP Y FITTING 17040 [facility] SPECTACLE 7 S XCPT APHAKIA MONOFOCAL OPHTH 61844 [facility] 7 XM&EVAL COMPRHNSV ESTAB PT 1/> [place] [address] [facility] TRANSVAGI 7 INC NAL US PELVIC 32829 [facility]DA 7 INC NONOBSTET ADOLFO REAL-TIME IMAGE COMPLETE IADNA 47435 MEDICAL MEDICAL TRICHOMON 7 [facility] VAGINALIS AMPLIFIED PROBE TECH IADNA 22327 MEDICAL UNICK HERPES 7 [facility] SOMPLX [facility] LAB [facility] VIRUS AMPLIFIED PROBE TQ IADNA 54682 MEDICAL MEDICAL NEISSERIA 7 [facility] GONORRHOE AE AMPLIFIED PROBE TQ IADNA NOS 54188 MEDICAL MEDICAL 7 DIAGNOSTI DIAGNOSTI AMPLIFIED [facility] PROBE TQ EACH ORGANISM IADNA 36621 MEDICAL MEDICAL PORFIRIO 7 DIAGNOSTI DIAGNOSTI SPECIES [facility] AMPLIFIED PROBE TQ IADNA 67378 MEDICAL MEDICAL GARDNEREL 7 DIAGNOSTI DIAGNOSTI LA [facility] VAGINALIS AMPLIFIED PROBE TQ URINE 39007 N[place] NEVA CO 7 [employer] [facility] VISUAL CTR CTR COLOR CMPRSN METHS IADNA 73750 MEDICAL MEDICAL CHLAMYDIA 7 [facility]NO[facility]I [facility]NO[facility] TRACHOMAT IS AMPLIFIED PROBE TQ URINE 83135 ARIK ELISE 7 [facility] TEST INC INC VISUAL COLOR CMPRSN METHS CULTURE 88698 ARIKANKUR ELISE BACTERIAL 7 [facility] INC INC QUANTTATI VE COLONY COUNT URINE COMPREHEN 70022 ARIK ARIK SIVE 7 [facility] [place] [address] ARIK ARIK LIPASE 7 [place] [address] ARIK ARIK AMYLASE 7 [place] [address] ARIK ARIK ABDOMEN & 7 [facility] PELVIS INC INC W/O CONTRAST MATERIAL URNLS DIP 46120 ARIK ELISE 7 [facility] STICK/TAB INC INC LET RGNT AUTO W/O MICROSCOP Y BLOOD 20026 ARIK ELISE COUNT 7 [facility] COMPLETE INC INC AUTO&AUTO DIFRNTL WBC THERAPEUT 33918 ARIK ELISE IC PX 1/> 7 [facility] AREAS INC INC EACH 15 MIN EXERCISES APPLICATI 06552 ARIK ELISE ON 7 [facility] MODALITY INC INC 1/> AREAS HOT/COLD PACKS APPL 19368 ARIK ELISE MODALITY 7 [facility] 1/> AREAS INC INC ULTRASOUN D EA 15 MIN MANUAL 23281 ARIK ELISE THERAPY 7 [facility] TQS 1/> INC INC REGIONS EACH 15 MINUTES APPLICATI 28071 ARIK ELISE ON 7 [facility] MODALITY INC INC 1/> AREAS HOT/COLD PACKS APPL 02271 ARIK ELISE MODALITY 7 [facility] 1/> AREAS INC INC ELEC STIMJ UNATTENDE D THERAPEUT 33734 ARIK ELISE IC PX 1/> 7 [facility] AREAS INC INC EACH 15 MIN EXERCISES PHYSICAL 51042 ARIK ELISE THERAPY 7 [facility] EVALUATIO INC INC N LOW COMPLEX 20 MINS RADEX 11011 [place] [facility] 7 MEDICAL LUMBOSACR IMAGING AL ASS MINIMUM 4 VIEWS ECG 36214 ARIK ELISE ROUTINE 7 [facility] ECG INC INC W/LEAST 12 LDS TRCG ONLY W/O I&R CV STRS 04-13-201 05693 ARIK ELISE TST 7 [facility] XERS&/OR INC INC RX CONT ECG TRCG ONLY ECHO 90828 ARIK ELISE TTHRC R-T 7 [facility] 2D INC INC W/WOM-MOD E COMPL SPEC&COLR D XTRNL ECG 50714 ARIK ELISE & 48 HR 7 [facility] RECORDING INC INC COLLECTIO 14725 ARIK ELISE N VENOUS 7 [facility] [place] [address] ARIK ELISE FREE 7 [facility] [place] [address] ARIK ELISE THYROID 7 [facility] STIMULATI INC INC NG HORMONE TSH COMPREHEN 78535 ARIK ELISE SIVE 7 [facility] METABOLIC INC INC PANEL URINE 83168 ARIK ELISE 7 [facility] TEST INC INC VISUAL COLOR CMPRSN METHS RADIOLOGI 97334 ARIK ELISE C EXAM 7 [facility] CHEST 2 INC INC VIEWS FRONTAL&L ATERAL ECG 53411 ARIK MCKEON ROUTINE 7 [facility] W/LEAST P 12 LDS I&R ONLY ECG 01736 ARIK ELISE ROUTINE 7 [facility] ECG INC INC W/LEAST 12 LDS TRCG ONLY W/O I&R CREATINE 85955 ARIK ELISE KINASE 7 [facility] TOTAL INC INC CREATINE 73387 ARIK ELISE KINASE MB 7 [facility] FRACTION INC INC ONLY BLOOD 21745 ARIK ELISE COUNT 7 [facility] COMPLETE INC INC AUTO&[place] [address] ARIK ELISE INFUSION 7 [facility] THERAPY/P INC INC ROPHYLAXI S /DX 1ST TO 1 HR THERAPEUT 61216 ARIK ELISE IC 7 [facility] INJECTION INC [place] [address] ARIK ELISE TROPONIN 7 [facility] QUANTITAT INC INC [facility] [address] NEVA [place] DAVIS DISCHARGE 7 FAMILY DAY HEALTH MANAGEMEN CTR T 30 MIN/< SBSQ 78445 [facility] 7 FAMILY CARE/DAY HEALTH 15 CTR MINUTES VAGINAL 18547 NEVA DAVIS DELIVERY 7 FAM[facility] ONLY HEALTH CTR NEURAXIAL 58010 PAT ROAOTEN JR LABOR 7 LTH ANALG/ANE ANESTHESI S PLND A PSC VAGINAL DELIVERY DELIVERY [id number] MERLY HOBSONWEBEN PRODUCTS 7 W W OF [facility] CONCEPTIO MEDICAL MEDICAL N EXTERNAL INITIAL 08228 NEVA REYESR OBSERVATI 7 FAMILY ON HEALTH CARE/DAY CTR 30 MINUTES 88974 NEVA REYESR NONSTRESS 7 FAMILY TEST HEALTH CTR INJECTION J2210 MERLY MORELAND 7 W W [facility] ONOVINE MEDICAL MEDICAL MALEATE UP TO 0.2 MG URNLS DIP 84327 NEVA REYESR 7 FAMILY STICK/TAB HEALTH LET RGNT CTR NON-AUTO W/O MICRSCP URNLS DIP 20449 NEVA DIAZ 7 FAMILY STICK/TAB HEALTH LET RGNT CTR NON-AUTO W/O MICRSCP IADNA 85232 MERLY MORELAND STREPTOCO 7 W W CCUS [facility] GROUP B MEDICAL MEDICAL AMPLIFIED PROBE TQ CUL 27697 MERLY MORELAND PRSMPTV [address] [facility] ORGANISM MEDICAL MEDICAL SCRN W/COLONY ESTIMJ URNLS DIP 24912 NEVA PENAGE 6 FAMILY STICK/TAB HEALTH LET RGNT CTR NON-AUTO W/O MICRSCP GLUC BLD 78681 MERLY MORELAND GLUC MNTR 6 W W DEV [facility] CLEARED MEDICAL MEDICAL FDA SPEC HOME USE INITIAL 05583 NEVA REYESR OBSERVATI 6 FAMILY ON HEALTH CARE/DAY CTR 30 MINUTES URNLS DIP 25526 MERLY HOBSONWVIE 6 W W STICK/TAB [facility] LET MEDICAL MEDICAL REAGENT AUTO MICROSCOP Y SMR PRIM 53562 MERLY MORELAND SRC WET 6 W W [facility] NFCT AGT MEDICAL MEDICAL CULTURE 20351 MEADOWVIE MEADOWVIE BACTERIAL 6 W W [facility] VE COLONY COUNT URINE 10634 MEADOWVIE MEADOWVIE NONSTRESS 6 W W TEST [facility] EVAL C/V 01843 JAZLYNWEBEN MEADOWVIE AMNIOTIC 6 W W FLUID [facility] PROTEIN HALE [facility]MARY MEDICAL QUAL EA SPECIMEN 14690 ARIK ELISE NONSTRESS 6 [facility] TEST INC INC DRUG TST G0477 ARIK ELISE PRESUMP;C 6 [facility] PBL BEING INC INC READ DC OPT OBV ONLY URNLS DIP 69439 NEVA CO HILL FLORA 6 FAMILY STICK/TAB HEALTH LET RGNT CTR NON-AUTO W/O MICRSCP URNLS DIP 69383 NEVA CO HOGGE ANGIE 6 FAMILY STICK/TAB HEALTH LET RGNT CTR NON-AUTO W/O MICRSCP COLLECTIO 76981 NEVA ANA BECKYNAZIA ANGIE N VENOUS 6 FAMILY BLOOD HEALTH VENIPUNCT CTR URE IIV4 VACC 22819 NEVA CO BECKYGE ANGIE SPLIT 6 FAMILY VIRUS 0.5 HEALTH ML DOS CTR FOR IM USE BLOOD 14216 NEVA CO BECKYGE ANGIE COUNT 6 FAMILY HEMOGLOBI HEALTH N CTR IM ADM 92203 NEVA DIAZ ANGIE PRQ ID 6 FAMILY SUBQ/IM HEALTH NJXS 1 CTR VACCINE GLUCOSE 77122 LAB PRETTY LAB PRETTY POST 6 BENJAMIN BENJAMIN GLUCOSE [facility]INGS DOSE CULTURE 79604 JAZLYNWEBEN MEADOWVIE BACTERIAL 6 W W [facility] VE COLONY COUNT URINE CULTURE 30272 ARIK ELISE BACTERIAL 6 [facility] INC INC QUANTTATI VE COLONY COUNT URINE CULTURE 93139 ARIK ELISE BCT 6 [facility] HOS[facility] ISOL&PRSM INC INC PTV ID ISOLATE EA URINE 05059 [facility] FARRELL NONSTRESS 6 PHYSICIAN TEST S GROUP US PREG 46099 [facility] SY[facility] UTERUS 6 MEDICAL [place] AFTER 1ST IMAGING TRIMEST ASS GESTATION SUSCEPTIB 39851 ARIK ELISE LTY STDY 6 [facility]OS[facility] ANTIMICRB INC INC IAL MICRO/AGA R DILUTJ US PREG 09269 ARIK ELISE UTERUS 6 [facility] W/DETAIL INC [place] ARTIE 1ST [place] [address] ARIK ELISE RETROPERI 6 [facility] TONEAL INC INC REAL TIME W/[place] [address] CINDY IBARRAUTCHER RETROPERI 6 MEDICAL [place] TONEAL IMAGING REAL TIME ASS W/IMAGE LIMITED DRUG TST G0477 ARIK ELISE PRESUMP;C 6 [facility] PBL BEING INC INC READ DC OPT OBV ONLY URNLS DIP 16428 NEVA PATRICIO 6 FAMILY ALLISON STICK/TAB HEALTH LET RGNT CTR NON-AUTO W/O MICRSCP US PREG 28027 NEVA PATRICIO UTERUS 6 FAMILY ALLISON W/DETAIL HEALTH CTR ARTIE 1ST GESTATION IADNA 34530 LAB PRETTY LAB PRETTY GARDNEREL 6 BENJAMIN BENJAMIN LA [facility] VAGINALIS DIRECT PROBE TQ URNLS DIP 16025 NEVA REYESR FLORA 6 FAMILY STICK/TAB HEALTH LET RGNT CTR NON-AUTO W/O MICRSCP IADNA 37821 LAB PRETTY LAB PRETTY PORFIRIO 6 BENJAMIN BENJAMIN SPECIES [facility] DIRECT PROBE TQ IADNA 91282 LAB PRETTY LAB PRETTY TRICHOMON 6 BENJAMIN BENJAMIN [facility] VAGINALIS DIRECT PROBE TQ URNLS DIP 55578 NEVA MANCILLA 6 FAMILY STICK/TAB HEALTH LET RGNT CTR NON-AUTO W/O MICRSCP URNLS DIP 54168 NEVA PEREZ HOGGE ANGIE 6 FAMILY STICK/TAB HEALTH LET RGNT CTR NON-AUTO W/O MICRSCP COLLECTIO 50016 MERLY MORELAND N VENOUS 6 W W BLOOD REGIONAL REGIONAL VENIPUNCT MEDICAL MEDICAL URE INITIAL 09864 NEVA MANCILLA OBSERVATI 6 FAMILY ON HEALTH CARE/DAY CTR 30 MINUTES COMPREHEN 77135 MERLY MORELAND SIVE 6 W W METABOLIC REGIONAL REGIONAL PANEL MEDICAL MEDICAL URNLS DIP 24228 NEVA CO DAVIS LAURENT 6 FAMILY STICK/TAB HEALTH LET RGNT CTR NON-AUTO W/O MICRSCP URNLS DIP 03902 NEVA CO HOGGE ANGIE 6 FAMILY STICK/TAB HEALTH LET RGNT CTR NON-AUTO W/O MICRSCP IADNA 43872 MEDICAL MEDICAL CHLAMYDIA 6 DIAGNOSTI DIAGNOSTI C LAB LLC C LAB LLC TRACHOMAT IS AMPLIFIED PROBE TQ IADNA 53520 MEDICAL MEDICAL NEISSERIA 6 DIAGNOSTI DIAGNOSTI C [facility] C LAB LLC GONORRHOE AE AMPLIFIED PROBE TQ HEPATITIS 51812 LAB PRETTY LAB PRETTY C 6 BENJAMIN BENJAMIN ANTIBODY [facility] DRUG TEST G0479 LAB PRETTY LAB PRETTY 6 BENJAMIN BENJAMIN PRESUMP;I HOLDINGS HOLDINGS NSTRUMENT ED CHEMISTRY ANLYZER DRUG TST G0483 LAB PRETTY LAB PRETTY DEFINITV [address] ID [facility] HOLD[facility] METH P DAY 22/MORE DR CL CULTURE 87033 LAB PRETTY LAB PRETTY BACTERIAL 6 BENJAMIN BENJAMIN [facility] HOLD[facility] QUANTTATI VE COLONY COUNT URINE OBSTETRIC 89164 LAB PRETTY LAB PRETTY PANEL 6 BENJAMIN BENJAMIN [facility] CREATININ 57274 LAB PRETTY LAB PRETTY E OTHER 6 BENJAMIN BENJAMIN SOURCE [facility] INJECTION J2405 ARIK ELISE 6 [facility] ONDANSETR INC INC ON HCL PER 1 MG UNCLASSIF J3490 ARIK ELISE IED DRUGS 6 [place] [address] ARIK ELISE LIPASE 6 [facility] INC INC BASIC 09396 ARIK ELISE METABOLIC 6 [facility] [place] [address] ARIK ELISE AMYLASE 6 [place] [address] ARIK ELISE INFUSION 6 [facility] THERAPY/P INC INC ROPHYLAXI S /DX 1ST TO 1 HR BLOOD 00363 ARIK ELISE COUNT 6 [facility] COMPLETE INC INC AUTO&AUTO DIFRNTL WBC URNLS DIP 73298 ARIK ELISE 6 [facility] STICK/TAB INC INC LET REAGENT AUTO MICROSCOP Y SCRATCH V2760 EARL MAGNO EARL MAGNO RESISTANT 6 COATING PER LENS LENS V2784 RAJAT KIRAN POLYCARBO 6 JOSSELINE OR EQUAL ANY INDEX PER LENS 1 VISN V2103 RAJAT KIRAN PLANO 6 TO+/-4.00 D SPHER 0.12-2.00 D CYL EA FRAMES V2020 RAJAT KIRAN PURCHASES 6 FITTING 70479 RAJAT KIRAN SPECTACLE 6 S XCPT APHAKIA MONOFOCAL OPHTH 86564 RAJAT EARL [facility] MEDICAL 6 XM&EVAL COMPRHNSV ESTAB PT 1/> THER 36947 ARIK ELISE PROPH/DX 5 [facility] NJX IV INC INC PUSH SINGLE/1S T SBST/DRUG GLUC BLD 95890 ARIK ELISE GLUC MNTR 5 [facility] DEV INC INC CLEARED FDA SPEC HOME USE THERAPEUT 42240 ARIK ELISE IC 5 [facility] INJECTION INC INC IV PUSH EACH NEW DRUG SKIN TEST 40134 NEVA CO LEYDI TON 5 [facility] INTRADERM AL RADIOLOGI 74578 ARIK ELISE C 5 [facility] EXAMINATI INC INC ON PELVIS 1/2 VIEWS CULTURE 44573 ARIK ELISE BACTERIAL 5 [facility] INC INC QUANTTATI VE COLONY COUNT URINE URINE 81480 ARIK ELISE 5 [facility] TEST INC INC VISUAL COLOR CMPRSN METHS RADEX HIP 11441 ARIK ELISE 5 [facility] UNILATERA INC INC L COMPLETE MINIMUM 2 VIEWS RADEX 45924 ARIK ELISE SPINE 5 [facility] LUMBOSACR INC INC AL MINIMUM 4 VIEWS URNLS DIP 20284 ARIK ELISE 5 [facility] STICK/TAB INC INC LET REAGENT AUTO MICROSCOP Y COLLECTIO 45513 MERLY MORELAND N VENOUS 5 W W BLOOD [facility] GONADOTRO 06236 MERLY MORELAND PIN 5 W W CHORIONIC REGIONAL REGIONAL MEDICAL MEDICAL QUANTITAT MAXINE URINE 83919 ARIK ELISE 5 [facility] TEST INC INC VISUAL COLOR CMPRSN METHS IADNA 29118 MEDICAL MEDICAL CHLAMYDIA 5 DIAGNOSTI DIAGNOSTI [facility] LAB LLC TRACHOMAT IS AMPLIFIED PROBE TQ IADNA 23184 MEDICAL MEDICAL NEISSERIA 5 DIAGNOSTI DIAGNOSTI [facility] LAB [facility] C LAB LLC GONORRHOE AE AMPLIFIED PROBE TQ CULTURE 80904 MEADOWVIE MEADOWVIE BACTERIAL 5 W W [facility] VE COLONY COUNT URINE CULTURE 59849 MEADOWVIE MEADOWVIE BACTERIAL 5 W W [facility] [place] [address] [facility] ABDOMEN & 4 MEDICAL NIKIA PELVIS IMAGING W/CONTRAS ASS T MATERIAL CUL 16147 MEADOWVIE MEADOWVIE PRSMPTV [address] [facility] ORGANISM MEDICAL MEDICAL SCRN W/COLONY ESTIMJ URINE 31606 MEADOWVIE MEADOWVIE 4 W W TEST [facility] VISUAL MEDICAL MEDICAL COLOR CMPRSN METHS INFUSION J7030 MEADOWVIE MEADOWVIE NORMAL 4 W W [facility] MEDICAL MEDICAL 1000 CC ANES 88165 [facility] MARCIAL UPPER GI 4 LTH TAO ENDOSCOPY ANESTHESI PROXIMAL A PSC TO DUODENUM EGD 48128 MEADOWVIE MEADOWVIE TRANSORAL 4 W W BIOPSY [facility]/ [place] [address] MEADOWVIE MEADOWVIE SURG 4 W W PATHOLOGY [facility] MEDICAL MEDICAL GROSS&ANTONETTE ROSCOPIC EXAM IMHISTOCH 05332 MEADOWVIE MEADOWVIE EM/CYTCHM 4 W W [address] [place] [address] ANTIBODY MEDICAL MEDICAL STAIN PROCEDURE AVULSION 09317 ARIK ELISE NAIL 4 [facility] PLATE INC INC PARTIAL/C OMPLETE SIMPLE 1 WEDGE 03140 AMANDEEP JEAN-BAPTISTE EXCISION 4 SKIN NAIL FOLD RADEX [address] NASAL 3 SUSAN SUSAN BONES FT FT COMPLETE SABRINA BENNETT MINIMUM 3 VIEWS 3D 68992 ARIK ELISE RENDERING 2 [facility] INC INC W/INTERP& [place] [address] ARIK ELISE INFUSION 2 [facility] THERAPY INC INC PROPHYLAX IS/[place] [address] ARIK ELISE ABDOMEN & 2 [facility] PELVIS INC INC W/CONTRAS T MATERIAL LOCM Q9967 ARIK ELISE 300-399 2 [facility] MG/ML INC INC IODINE CONCENTRA TION PER ML THERAPEUT 95675 ARIK ELISE IC 2 [facility] INJECTION INC [place] [address] ARIK ELISE INFUSION 2 [facility] THERAPY/P INC INC ROPHYLAXI S /DX 1ST TO 1 HR BLOOD 35666 ARIK ELISE COUNT 2 [facility] COMPLETE INC INC AUTO&AUTO DIFRNTL WBC URNLS DIP 85817 RAIK ELISE 2 [facility] STICK/TAB INC INC LET REAGENT AUTO MICROSCOP Y URINE 03678 ARIK ELISE 2 [facility] TEST INC INC VISUAL COLOR CMPRSN METHS COMPREHEN 42467 ARIK ELISE SIVE 2 [facility] [place] [address] ARIK ELISE STREPTOCO 2 [facility] CCUS INC INC GROUP A FRAMES V2020 RAJAT EARL MAGNO PURCHASES 2 1 VISN V2103 RAJAT EARL MAGNO PLANO 2 TO+/-4.00 D SPHER 0.12-2.00 D CYL EA DETERMINA 71937 EARLREBECCA EARL MAGNO TION 2 REFRACTIV E STATE FITTING 82389 EARLREBECCA EARL MAGNO SPECTACLE 2 S XCPT APHAKIA MONOFOCAL OPHTH 92132 [facility]REBECCA [facility] XM&EVAL COMPRE NEW PT 1/> VST CULTURE 07032 ARIK ELISE BACTERIAL 2 [facility] INC INC QUANTTATI VE COLONY COUNT URINE URINE 30572 ARIK ELISE 2 [facility] TEST INC INC VISUAL COLOR CMPRSN METHS URNLS DIP 03908 ARIK ELISE 2 [facility] STICK/TAB INC INC LET REAGENT AUTO MICROSCOP Y URNLS DIP 88552 MEADOWVIE MEADOWVIE 2 W W STICK/TAB [facility] LET MEDICAL MEDICAL REAGENT AUTO MICROSCOP Y SUSCEPTIB 26477 MEADOWVIE MEADOWVIE LTY STDY 2 W W ANTIMICRB [facility] MEDICAL MICRO/AGA R DILUTJ URINE 02960 MEADOWVIE MEADOWVIE 2 W W TEST [facility] MEDICAL COLOR CMPRSN METHS CUL BACT 38796 MEADOWVIE MEADOWVIE AEROBIC 2 W [facility] DEFINITIV E EA ISOL CULTURE 86960 MEADOWVIE MEADOWVIE BACTERIAL 2 W W [facility] VE COLONY COUNT URINE EXCISION 94036 PAWSAT PAWSAT NAIL 1 MAR [place] [address] MEADOWVIE MEADOWVIE AMYLASE [address] [place] [address] [facility] ABDOMEN & 1 [facility] PELVIS RADIOLOGY W/O ASSOCIAT CONTRST 1/> BODY RE 3D 76238 [facility] RENDERING 1 TAO W/INTERP RADIOLOGY & ASSOCI[place] [address] MEADOWVIE MEADOWVIE LIPASE 1 W W [facility] THER 70961 MEADOWVIE MEADOWVIE PROPH/DX 1 W W NJX IV [facility] MEDICAL SINGLE/1S T SBST/DRUG URINE 10386 MEADOWVIE MEADOWVIE 1 W W TEST [facility] VISUAL MEDICAL MEDICAL COLOR CMPRSN METHS COMPREHEN 09095 MEADOWVIE MEADOWVIE SIVE 1 W W METABOLIC [facility] MEDICAL MEDICAL URNLS DIP 33277 MEADOWVIE MEADOWVIE 1 W W STICK/TAB [facility] MEDICAL MEDICAL REAGENT AUTO MICROSCOP Y COLLECTIO 16131 MEADOWVIE MEADOWVIE N VENOUS 1 W W BLOOD [facility] VENIPUNCT MEDICAL MEDICAL URE BLOOD 41161 JAZLYNWEBEN MEADOWVIE COUNT 1 W W COMPLETE [facility] AUTO&AUTO MEDICAL MEDICAL DIFRNTL WBC THERAPEUT 99191 MELLYWEBEN PICKARDWVIE IC 1 W W INJECTION [facility] IV PUSH MEDICAL MEDICAL EACH NEW DRUG AVULSION 04202 MERLY MORELAND NAIL 0 W W PLATE [facility] PARTIAL/C MEDICAL MEDICAL OMPLETE SIMPLE 1 EXCISION 26409 NORRIS MACIAS NAIL 0 EMERGENCY DEV [facility] [facility] PERMANENT REMOVAL RPR&REFIT 54577 RAMO EARL, G 0 VISION PATRICE A SPECTACLE S EXCEPT APHAKIA RADEX 33439 POYEN FARRELL, SPINE 0 IVANA C CERVICAL RADIOLOGY 2 OR 3 VIEWS ASSOCIATE S [facility] 1 VISN V2103 RAMO EARL, PLANO 0 VISION PATRICE A TO+/-4.00 D SPHER 0.12-2.00 D CYL EA FRAMES V2020 RAMO EARL, PURCHASES 0 VISION PATRICE A ECG 56569 [facility] ROUTINE [address] [place] [address] ECG EAST EAST W/LEAST 12 LDS TRCG ONLY W/O I&R RADIOLOGI 44074 [facility] C EXAM [address] [place] [address] CHEST 2 EAST EAST VIEWS FRONTAL&L ATERAL RADEX 11652 MEADOWVIE MEADOWVIE FOREARM 2 9 W W VIEWS [facility] CENTER RADEX 15041 MEADOWVIE MEADOWVIE WRIST 9 W W COMPLETE [facility] 3 MEDICAL MEDICAL VIEWS CENTER CENTER RADEX 91946 [facility], WRIST 2 9 SHAYNA S VIEWS RADIOLOGY ASSOCIATE S [facility] CT PELVIS 15678 [facility], 9 SHAYNA S W/CONTRAS RADIOLOGY T MATERIAL ASSOCIATE [place] [facility] [place] [address] MEADOWVIE MEADOWVIE INFUSION 9 W W HYDRATION [facility] INITIAL MEDICAL MEDICAL 31 MIN-[address] [place] [address] MEADOWVIE MEADOWVIE ABDOMEN 9 W W W/CONTRAS [facility] T MEDICAL MEDICAL MATERIAL CENTER CENTER 3D 03463 [facility], RENDERING 9 SHAYNA S W/INTERP RADIOLOGY & POSTPROCE ASSOCIATE SS S PSC SUPERVISI ON RADIOLOGI 97365 MEADOWVIE MEADOWVIE C EXAM 9 W W CHEST 2 REGIONAL REGIONAL VIEWS MEDICAL MEDICAL FRONTAL&L CENTER CENTER ATERAL BASIC 70476 MEADOWVIE MEADOWVIE METABOLIC 9 W W PANEL [facility] TOTAL CENTER CENTER URINE 14739 MEADOWVIE MEADOWVIE 9 W W TEST [facility] REGIONAL VISUAL MEDICAL MEDICAL COLOR CENTER CENTER CMPRSN METHS COLLECTIO 83774 MEADOWVIE MEADOWVIE N VENOUS 9 W W BLOOD [facility]AL VENIPUNCT MEDICAL MEDICAL URE CENTER CENTER BLOOD 39566 MEADOWVIE MEADOWVIE COUNT 9 W W COMPLETE REGIONAL REGIONAL AUTO&AUTO MEDICAL MEDICAL DIFRNTL CENTER CENTER WBC URNLS DIP 66769 MEADOWVIE MEADOWVIE 9 W W STICK/TAB [facility] REG[facility]AL LET MEDICAL MEDICAL REAGENT CENTER CENTER AUTO MICROSCOP Y RADEX [address] MINIMUM 2 EAST EAST VIEWS AVULSION 26638 MEADOWVIE MEADOWVIE NAIL 9 W W PLATE REGIONAL REGIONAL PARTIAL/C MEDICAL MEDICAL OMPLETE CENTER CENTER SIMPLE 1 THER 59774 MEADOWVIE MEADOWVIE PROPH/DX 9 W W NJX IV REGIONAL REGIONAL PUSH MEDICAL MEDICAL SINGLE/1S CENTER CENTER T SBST/DRUG SEDIMENTA 83166 MEADOWVIE MEADOWVIE TION RATE 9 W W RBC REGIONAL REGIONAL NON-AUTOM MEDICAL MEDICAL ATED CENTER CENTER URINE 46593 MEADOWVIE MEADOWVIE 9 W W TEST [facility] VISUAL [facility]ICAL MEDICAL COLOR CENTER CENTER CMPRSN METHS COMPREHEN 82418 MEADOW[facility]IE MEADOWVIE SIVE 9 W W METABOLIC [facility] PANEL [facility]ICAL [facility]ICAL CENTER CENTER RADIOLOGI 87263 [facility] MEADOW[facility]IE C EXAM 9 W W CHEST 2 REGIONAL REGIONAL VIEWS MEDICAL MEDICAL FRONTAL&L CENTER CENTER ATERAL URNLS DIP 06840 MEADOW[facility]IE MEADOWVIE 9 W W STICK/TAB [facility]AL REGIONAL LET MEDICAL MEDICAL REAGENT CENTER CENTER AUTO MICROSCOP Y CULTURE 01683 [facility]OW[facility]IE MEADOW[facility]IE BACTERIAL 9 W W BLOOD [facility] AEROBIC MEDICAL MEDICAL W/ID CENTER CENTER ISOLATES BLOOD 88524 MEADOWVIE MEADOWVIE COUNT 9 W W COMPLETE [facility] AUTO&AUTO MEDICAL MEDICAL [place] [address] ME[facility]OW[facility]IE MEADOWVIE INFUSION 9 W W THERAPY/P [facility] ROPHYLAXI MEDICAL MEDICAL S /DX 1ST CENTER CENTER TO 1 HR COLLECTIO 44893 MEADOWVIE MEADOWVIE N VENOUS 9 W W BLOOD [facility] VENIPUNCT [place]ICAL [place] [address] MEADOWVIE MEADOWVIE INFLUENZA 9 W W A/B EACH [facility] MEDICAL MEDICAL CENTER CENTER IAADIADOO 02498 MEADOWVIE MEADOWVIE 9 W W STREPTOCO [facility] CCUS MEDICAL MEDICAL GROUP A CENTER CENTER CUL 49712 MEADOWVIE MEADOW[facility]IE PRSMPTV 9 W W PTHGNC [facility] ORGANISM MEDICAL MEDICAL SCRN CENTER CENTER W/COLONY ESTIMJ CUL BACT 58542 MEADOWVIE MEADOWVIE XCPT 8 W W URINE [facility] BLOOD/STO MEDICAL MEDICAL OL CENTER CENTER AEROBIC ISOL CUL BACT 59424 MEADOWVIE MEADOW[facility]IE AEROBIC 8 W W ADDL [facility] METHS MEDICAL MEDICAL DEFINITIV CENTER CENTER E EA ISOL SMR PRIM 17351 MEADOWVIE MEADOWVIE SRC 8 W W GRAM/GIEM REGIONAL REG[facility]AL SA STAIN MEDICAL MEDICAL BCT CENTER CENTER FUNGI/BJ L SUSCEPTIB 72940 MEADOWVIE MEADOWVIE LTY STDY 8 W W ANTIMICRB [facility] IAL MEDICAL MEDICAL MICRO/AGA CENTER CENTER R DILUTJ INCISION 34949 MEADOWVIE MEADOWVIE & 8 W W DRAINAGE [facility] ABSCESS MEDICAL MEDICAL SIMPLE/SI CENTER CENTER NGLE SUSCEPTIB 84068 MEADOWVIE MEADOWVIE ILITY 8 W W STUDY [facility] ANTIMICRO MEDICAL MEDICAL BIAL DISK CENTER CENTER METHOD FRAMES V2020 RAJAT EARL, PURCHASES 8 PATRICE A PATRICE A SPHERE V2100 RAJAT EARL, SINGLE 8 PATRICE A PATRICE A VISION PLANO +/- 4.00 PER LENS OPHTH 80392 EARLRAJAT, MEDICAL 8 PATRICE A PATRICE A XM&EVAL COMPRE NEW PT 1/> VST RPR&REFIT 67190 RAJAT EARL, G 8 PATRICE A PATRICE A SPECTACLE S EXCEPT APHAKIA ANESTHESI 55804 [facility] 8 MEDICAL MARCIO G INTRAORAL SERVICES WITH INC BIOPSY NOS TONSILLEC 90106 [facility] KAREEM & [address] [place] [address] ADENOIDEC KAREEM <AGE 13 [place]FS [address] [facility] THER [address] [place] [address] PROPH/DX 1ST >1 HR LEVEL III 77705 [facility] SURG [address] [place] [address] PATHOLOGY GROSS&ANTONETTE ROSCOPIC EXAM THER 93229 [facility] PROPH/DX [address] [place], [place] [address]X [facility] SUBQ/IM RADIOLOGI 01658 [facility] C EXAM [address] [place] [address] CHEST 2 VIEWS FRONTAL&[place] [address] [facility] MAXILLOFA [address] [place] [address] CIAL W/O CONTRAST MATERIAL SPMTRY 77509 [facility] W/VC [address] [place] [address] EXPIRATOR Y RADHA W/WO MXML VOL VNTJ PERCUTANE 97033 [facility] OUS TESTS [address] [place] [address] W/ALLERGE BAUTISTA EXTRACTS MCV4 63690 Rabbit MENACWKatrina 8 POINT ISA C CONJ VACC FAMILY GRPS CARE, ACYW-135 INC. IM USE TDAP 77433 [facility], VACCINE 7 8 POINT ISA C YRS/> IM FAMILY CARE, INC. RADHA 53433 [facility], VACCINE 8 POINT ISA C LIVE FOR FAMILY SUBCUTANE CARE, OUS USE INC. HEPA 76129 [facility], VACCINE 2 8 POINT ISA C DOSE FAMILY SCHEDULE CARE, PED/ADOLE INC. SC IM USE 4VHPV 13616 [facility], VACCINE 3 8 POINT ISA C DOSE FAMILY SCHEDULE CARE, [place] [address] STREPTOCO 8 SUSAN SUSAN CCUS GROUP A MEDICALCE MEDICALCE NTER NTER RADEX [address] FOOT 8 SUSAN SUSAN COMPLETE MINIMUM 3 MEDICALCE MEDICALCE VIEWS NTER NTER RADEX [address] ANKLE 8 SUSAN SUSAN COMPLETE MINIMUM 3 MEDICALCE MEDICALCE VIEWS NTER NTER APPLICATI [address] ON OF 8 SUSAN SUSAN SPLINT MEDICALCE MEDICALCE NTER NTER IAADIADOO 37508 [facility], 8 POINT ISA C STREPTOCO FAMILY CCUS CARE, GROUP A INC. Encounters Encounter Start End Date Code Location Performer Type Date OFFICE 72754 [facility] 7 7 PSC T VISIT 15 MINUTES OFFICE 20564 [facility] OUTPATIEN 7 7 PHYSICIAN T VISIT S GROUP 25 MINUTES HOSPITAL MERLY Ignacio 7 7 W OUTPATIEN REGIONAL T MEDICAL OFFICE 31745 NEVA [facility] OUTPATIEN 7 7 FAMILY T VISIT HEALTH 15 CTR MINUTES EMERGENCY 84078 ANDREE ANDRADE DEPT 7 7 PHYSICIAN VISIT S, [facility] HIGH SEVERITY& [facility] - 7 7 [facility] OUTPATIEN INC T EMERGENCY 97384 [facility] 7 7 [facility] DEPARTMEN INC T VISIT HIGH/URGE NT SEVERITY HOSPITAL [facility] - 7 7 [facility] OUTPATIEN INC T OFFICE 23980 [facility] OUTPATIEN 7 7 [facility] T VISIT 5 INC MINUTES [facility]OSPITAL [facility] - 7 7 [facility] OUTPATIEN INC T OFFICE 87538 [facility] OUTPATIEN 7 7 MEM [facility] T VISIT 5 INC MINUTES HOSPITAL [facility] - 7 7 [facility] OUTPATIEN INC T HOSPITAL [facility] - 7 7 [facility] OUTPATIEN INC T OFFICE 76153 [facility] OUTPATIEN 7 7 PHYSICIAN T VISIT S GROUP 25 MINUTES OFFICE 20734 [facility] LOVE OUTPATIEN 7 7 PHYSICIAN T VISIT S GROUP 25 MINUTES HOSPITAL [facility] - 7 7 [facility] OUTPATIEN INC T HOSPITAL [facility] - 7 7 [facility] OUTPATIEN INC T OFFICE 40247 [facility] OUTPATIEN 7 7 MEM [facility]OS[facility] T VISIT 5 INC [facility] ARIK - 7 7 [facility] OUTPATIEN INC [facility]OSPITAL [facility] - 7 7 [facility] OUTPATIEN INC [facility]OSPITAL [facility] - 7 7 [facility] OUTPATIEN INC T EMERGENCY 82091 [facility] 7 7 MEM [facility] DEPARTMEN INC T VISIT MODERATE SEVERITY EMERGENCY 67124 ANDREE BAEZ DEPT 7 7 PHYSICIAN U VISIT S, [facility] HIGH SEVERITY& THREAT [facility] MERLY - 7 7 W [facility] MERLY - 7 7 W [facility] MEDICAL OFFICE 25127 [place] OUTPATIEN 7 7 FAMILY T VISIT HEALTH 15 CTR MINUTES OFFICE 45407 [place] OUTPATIEN 7 7 FAMILY T VISIT HEALTH 15 CTR MINUTES HOSPITAL MERLY - 7 7 W [facility] MEDICAL OFFICE 86030 [place] OUTPATIEN 6 6 FAMILY T VISIT HEALTH 15 CTR MINUTES HOSPITAL [facility] - 6 6 [facility] 6 6 [facility] OUTPATIEN [facility] T OFFICE 92041 [facility] FLORA OUTPATIEN 6 6 FAMILY T VISIT HEALTH 15 CTR MINUTES OFFICE 80666 NEVA DIAZ ANGIE OUTPATIEN 6 6 FAMILY T VISIT HEALTH 15 CTR MINUTES HOSPITAL SEAMUSEBEN - 6 6 W [facility] MEDICAL OFFICE 09797 [facility] OUT[facility]IEN 6 6 W GENERAL DESTINEE T NEW 30 SURGERY MINUTES HOSPITAL [facility] - 6 6 [facility] OUTPATIEN [facility] OFFICE 90062 [facility] FARRELL OUTPATIEN 6 6 PHYSICIAN T NEW 30 S GROUP MINUTES OFFICE 65575 NEVA NUÑEZZESKI OUTPATIEN 6 6 FAMILY ALLISON T VISIT HEALTH 15 CTR MINUTES OFFICE 89395 [facility] [place] FLORA OUTPATIEN 6 6 FAMILY T VISIT HEALTH 15 CTR MINUTES OFFICE 63499 NEVA DAVIS LAURENT OUTPATIEN 6 6 FAMILY T VISIT HEALTH 15 CTR MINUTES OFFICE 59752 NEVA DIAZ ANGIE OUTPATIEN 6 6 FAMILY T VISIT HEALTH 15 CTR MINUTES OFFICE 41652 NEVA DAVIS LAURENT OUTPATIEN 6 6 FAMILY T VISIT HEALTH 15 CTR MINUTES [facility]OSPITAL [facility] - 6 6 [facility] 66738 NEVA ANA DIAZ ANGIE OUTPATIEN 6 6 FAMILY T VISIT HEALTH 10 CTR MINUTES OFFICE 78365 [facility] NINOSKA OUTPATIEN 6 6 PSC JEFF T VISIT 15 MINUTES OFFICE 19657 NEVA ANA DIAZ ANGIE OUTPATIEN 6 6 FAMILY T VISIT HEALTH 15 CTR MINUTES EMERGENCY 95612 ANDREE KAMINSKI [facility] 6 6 PHYSICIAN DEPARTMEN S, PLLC T VISIT HIGH/URGE NT SEVERITY EMERGENCY 19205 [facility] 6 6 [facility] T VISIT LOW/MODER SEVERITY HOSPITAL [facility] - 6 6 [facility] OUTPATIEN [facility] OFFICE 45326 [facility] 6 6 [facility] T VISIT 25 MINUTES EMERGENCY 61408 ANDREE BAEZ 6 6 PHYSICIAN [facility] T VISIT MODERATE SEVERITY HOSPITAL ARIK - 6 6 [facility] EMERGENCY 40257 ARIK 6 6 [facility] 3] T VISIT LIMITED/M INOR PROB HOSPITAL ARIK - 5 5 [facility] EMERGENCY 97007 ARI[facility] 5 5 [facility]NOTE 3] T VISIT HIGH/URGE NT SEVERITY OFFICE 50427 NEVA FREEMAN OUTPATIEN 5 5 PRIMARY T VISIT CARE 10 CENTER MINUTES EMERGENCY 04134 ARIK 5 5 [facility]NOTE 3] T VISIT LOW/MODER SEVERITY HOSPITAL ARIK - 5 5 [facility] MERLY - 5 5 W [facility] MEDICAL OFFICE 99791 NEVA MCGOWAN OUTPATIEN 5 5 PRIMARY T VISIT CARE 15 CENTER MINUTES EMERGENCY 33783 ANDREE BAEZ 5 5 PHYSICIAN U [facility] T VISIT MODERATE SEVERITY HOSPITAL ARIK - 5 5 [facility] T EMERGENCY 48664 [facility] 5 5 [facility] T VISIT LOW/MODER SEVERITY PERIODIC 85950 NEVA MCGOWAN PREVENTIV 5 5 PRIMARY E MED EST CARE PATIENT CENTER 18-39 YRS EMERGENCY 97472 [facility] 5 5 DANYELL CHR DEPARTMEN EMERGENCY T VISIT PHYS HIGH/URGE NT SEVERITY OFFICE 39710 [facility] OUTPATIEN 5 5 PSC JEFF T VISIT 15 MINUTES HOSPITAL [facility] 11552 [facility] OUTPATIEN 5 5 PSC JEFF T VISIT 15 MINUTES HOSPITAL [facility] - 5 5 W OUTPATIEN [facility] T MEDICAL OFFICE 26352 [facility] N[facility] OUTPATIEN 5 5 PSC JEFF T VISIT 15 MINUTES EMERGENCY 46968 [facility] DEPT 4 4 DANYELL VISIT EMERGENCY HIGH PHYS SEVERITY& THREAT [facility] MERLY - 4 4 [facility] 16908 YUKO HUN[facility]LEY [facility] 4 4 DON DON T NEW 45 MINUTES OFFICE 00951 N[facility] NINOSKA OUTPATIEN 4 4 JEFF JEFF T VISIT 15 MINUTES EMERGENCY 98586 ARIK 4 4 [facility] DEPARTMEN INC T VISIT LOW/MODER SEVERITY EMERGENCY 04516 AIDE NOBLE 4 4 III WILLIS III WILLIS DEPARTMEN T VISIT MODERATE SEVERITY HOSPITAL [facility] - 4 4 [facility] OUTPATIEN INC T OFFICE 05907 [facility] 4 4 JEFF JEFF T VISIT 15 MINUTES HOSPITAL ARIK - 4 4 [facility] OUTPATIEN INC T EMERGENCY 28893 AMANDEEP JEAN-BAPTISTE AMANDEEP JEAN-BAPTISTE 4 4 DEPARTMEN T VISIT MODERATE SEVERITY OFFICE 01629 NINOSKA MILLERETON OUTPATIEN 3 3 JEFF JEFF T VISIT 15 MINUTES OFFICE 36243 [facility] 3 3 [facility] T VISIT 5 HIGH HIGH MINUTES [facility] PERIODIC 93074 [facility] 3 3 PSC JEFF E MED EST PATIENT 12-17YRS [facility] ST - 3 3 [facility]AN [facility] T SABRINA EMERGENCY 94623 3 3 SUSAN [facility] FT T VISIT SABRINA MODERATE SEVERITY EMERGENCY 74175 SHAHIDA MORRIS 3 3 [facility] T VISIT HIGH/URGE NT SEVERITY OFFICE 86387 [facility]ACK[facility]ACKEN OUTPATIEN 3 3 [facility] T VISIT HIGH HIGH 10 [facility] MINUTES OFFICE 22038 BRACKEN BRACKEN OUTPATIEN [address] [place] [address] T VISIT HIGH HIGH 15 [facility] MINUTES EMERGENCY 58875 [facility] DEPT 2 2 EMERGENCY ADDIE VISIT SERVICES HIGH SEVERITY& THREAT FUN EMERGENCY 45364 ARIK 2 2 [facility] DEPARTMEN INC T VISIT HIGH/URGE NT SEVERITY HOSPITAL ARIK - 2 2 [facility] OUTPATIEN INC T OFFICE 12619 BRACKEN BRACKEN OUTPATIEN 2 2 [facility] T VISIT HIGH HIGH 10 [facility] MINUTES OFFICE 08955 BRACKEN BRACKEN OUTPATIEN [address] [place] [address] T VISIT HIGH HIGH 10 [facility] MINUTES EMERGENCY 29981 ARIK 2 2 [facility] DEPARTMEN INC T VISIT LOW/MODER SEVERITY EMERGENCY 65334 AIDE NOBLE 2 2 III WILLIS III [facility] T VISIT MODERATE SEVERITY HOSPITAL ARIK - 2 2 [facility] OUTPATIEN INC T OFFICE 86997 BRACKEN BRACKEN OUTPATIEN 2 2 [facility] T VISIT HIGH HIGH 10 [facility] MINUTES OFFICE 16950 BRACKEN BRACKEN OUTPATIEN 2 2 [facility] T VISIT HIGH HIGH 15 [facility] MINUT[facility] OFFICE 53723 NINOSKA XIAO OUTPATIEN 2 2 JEFF JEFF T VISIT 15 MINUTES EMERGENCY 61074 VENTURA LISA VENTURA LISA 2 2 DEPARTMEN T VISIT HIGH/URGE NT SEVERITY HOSPITAL ARIK - 2 2 [facility] OUTPATIEN INC T EMERGENCY 34715 ARIK 2 2 [facility] DEPARTMEN INC T VISIT LOW/MODER SEVERITY EMERGENCY 79102 MERLY SALAZAR 2 2 W [facility] T VISIT MEDICAL MODERATE SEVERITY HOSPITAL MERLY - 2 2 W OUTPATIEN REGIONAL T MEDICAL EMERGENCY 99502 NORRIS HORVATH 2 2 EMERGENCY CARLYN DEPARTMEN SERVICES T VISIT HIGH/URGE NT SEVERITY OFFICE 66292 PAWSAT PAWSAT OUTPATIEN 1 1 Nov T NEW 20 MINUTES OFFICE 86750 NINOSKA XIAO OUTPATIEN 1 1 JEFF JEFF T VISIT 15 MINUTES EMERGENCY 85490 ARIK 1 1 [facility] DEPARTMEN INC T VISIT LOW/MODER SEVERITY EMERGENCY 22201 NORRIS ANDRADE 1 1 EMERGENCY ANTONETTE [facility] T VISIT MODERATE SEVERITY HOSPITAL ARIK - 1 1 [facility] OUTPATIEN INC T OFFICE 19392 BRACKEN BRACKEN OUTPATIEN 1 1 CO MIDDLE [facility]LE [facility] 10 MINUTES EMERGENCY 29371 MERLY 1 1 [facility] T VISIT MEDICAL HIGH/URGE NT SEVERITY EMERGENCY 92932 NORRIS HORVATH DEPT 1 1 EMERGENCY CARLYN VISIT SERVICES HIGH SEVERITY& THREAT [facility] MERLY - 1 1 W OUTPATIEN REGIONAL T MEDICAL OFFICE 91740 BRACKEN BRACKEN OUTPATIEN 1 1 [facility] 10 MINUTES OFFICE 32773 BRACKEN BRACKEN OUTPATIEN 1 1 [facility] 10 MINUTES OFFICE 14239 BRACKEN BRACKEN OUTPATIEN 1 1 [facility] 10 MINUTES OFFICE 11991 BRACKEN BRACKEN OUTPATIEN 1 1 [facility] 10 MINUTES OFFICE 96680 BRACKEN BRACKEN OUTPATIEN 0 0 [facility] 10 MINUTES OFFICE 76962 BRACKEN BRACKEN OUTPATIEN 0 0 [facility] 10 MINUTES OFFICE 85730 BRACKEN BRACKEN OUTPATIEN 0 0 [facility] 10 MINUTES HOSPITAL MEADOWVIE - 0 0 W OUTPATIEN REGIONAL T MEDICAL EMERGENCY 30420 MEADOWVIE 0 0 W [facility] REGIONAL T VISIT MEDICAL MODERATE SEVERITY PERIODIC 83050 [facility] PREVENTIV 0 0 PSC JEFF E MED EST PATIENT OFFICE 02303 BRACKEN BRACKEN OUTPATIEN 0 0 [facility] 10 MINUTES OFFICE 35994 BRACKEN BRACKEN OUTPATIEN 0 0 [facility] 10 MINUTES OFFICE 81876 BRACKEN BRACKEN OUTPATIEN 0 0 [facility] 10 MINUTES EMERGENCY 50103 MEADOWVIE 0 0 W [facility] REGIONAL T VISIT MEDICAL LIMITED/M CENTER INOR PROB EMERGENCY 26058 NORRIS GARCIA, 0 0 EMERGENCY MARILEE Titus [facility] T VISIT MODERATE ASSOCIATE SEVERITY [facility] MEADOWVIE - 0 0 W OUTPATIEN REGIONAL T MEDICAL CENTER OFFICE 48243 BRACKEN BRACKEN OUTPATIEN 0 0 CO [facility] 10 MINUTES PERIODIC 73789 [facility] N[facility]OS[facility], PREVENTIV 0 0 PSC SANTIAGO R E MED EST PATIENT 12-17YRS OFFICE 77297 BRACKEN BRACKEN OUTPATIEN 0 0 [facility] 10 MINUTES HOSPITAL MEADOW[facility]IE - 0 0 W [facility] T MEDICAL CENTER EMERGENCY 89660 MEADOW[facility]IE 0 0 W [facility] T VISIT MEDICAL MODERATE CENTER SEVERITY EMERGENCY 90730 NORRIS HORVATH, 0 0 EMERGENCY [facility] SERVICES A T VISIT HIGH/URGE ASSOCIATE NT S SEVERITY OFFICE 88418 BRACKEN BRACKEN OUTPATIEN 0 0 CO [facility] MIDDLE T VISIT 5 [facility] MINUTES EMERGENCY 71052 [facility] 9 9 [facility] T VISIT HIGH/URGE NT SEVERITY [facility]OSP[facility] [place] [address] 9 [facility] 03417 [facility] OUTPATIEN 9 9 HEALTH CO MIDDLE T [facility]ISIT 5 [facility] MINUTES BANK ACCT OFFICE 67881 [facility] OUTPATIEN 9 9 [facility]LE T VISIT 5 [facility] MINUTES BANK ACCT OFFICE 79314 [facility] OUTPATIEN 9 9 [facility]ALTH [facility]DLE T VISIT 5 [facility] MINUTES BANK ACCT OFFICE 47658 [facility] OUTPATIEN 9 9 [facility]LE T [facility]IT [facility] 10 BANK ACCT MINUTES OFFICE 56890 [facility] N[facility]OS[facility], OUTPATIEN 9 9 PSC SANTIAGO R T NEW 45 MINUTES HOSPITAL [facility] 9 9 [facility] EMERGENCY 26479 [facility] 9 9 W [facility] T VISIT MEDICAL MODERATE CENTER SEVERITY EMERGENCY 87444 NORRIS ARROYO 9 9 EMERGENCY , [facility] SERVICES A T VISIT HIGH/URGE ASSOCIATE NT S SEVERITY EMERGENCY 68690 NORRIS OSBORNE, DEPT 9 9 EMERGENCY ELIZABETH L VISIT SERVICES HIGH SEVERITY& ASSOCIATE THREAT S FUNCJ EMERGENCY 98228 [facility] 9 9 W [facility] T VISIT MEDICAL HIGH/URGE CENTER NT SEVERITY [facility] 9 [facility] OFF[facility] 06480 [facility] OUTPATIEN 9 9 HEALTH CO MIDDLE T VISIT [facility] 15 BANK ACCT MINUTES HOSPITAL [facility] 9 [facility] EMERGENC[facility] 60020 EMERGENCY VEST, 9 9 CARE [facility] PHYS T VISIT [facility] [place] SE[place] EMERGENCY 59133 [facility] 9 9 W [facility] T VISIT MEDICAL LOW/MODER CENTER SEVERITY [facility]OSPITAL [facility] 9 9 [facility] EMERGENCY 04446 NORRIS KRISHNAN, 9 9 EMERGENCY [facility] SERVICES T VISIT HIGH/URGE ASSOCIATE NT S SEVERITY HOSPITAL [facility] 9 9 W [facility] EMERGENCY 20782 NORRIS HORVATH, 9 9 EMERGENCY [facility] SERVICES A T VISIT HIGH/URGE ASSOCIATE NT S SEVERITY EMERGENCY 92145 [facility] 9 9 W [facility] T VISIT MEDICAL MODERATE CENTER SEVERITY OFFICE 72611 [facility] OUTPATIEN 9 9 HEALTH CO MIDDLE T VISIT [facility] 15 BANK ACCT MINUTES [facility] EMERGENCY 50464 NORRIS XIAO, 9 9 EMERGENCY [facility] SERVICES K T VISIT MODERATE ASSOCIATE SEVERITY S EMERGENCY 75864 [facility] 9 9 W [facility] T VISIT MEDICAL LOW/MODER CENTER SEVERITY OFFICE 31287 [facility] OUTPATIEN 9 9 HEALTH CO MIDDLE T VISIT [facility] 15 BANK ACCT MINUTES OFFICE 47251 [facility] OUTPATIEN 9 9 HEALTH CO MIDDLE T NEW 20 [facility] MINUTES [facility] ACCT EMERGENCY 90112 NORRIS ALTAMIRANO, 8 8 EMERGENCY SHEYLA Antonio [facility] T VISIT MODERATE ASSOCIATE SEVERITY S EMERGENCY 86565 [facility] 8 8 W [facility] T VISIT MEDICAL LOW/MODER CENTER [facility] - 8 8 W [facility] EMERGENCY 75366 [facility] 8 8 [facility] VISIT LIMITED/M INOR PROB EMERGENCY 32374 EMERGENCY OPAL 8 8 CARE LISA F [facility] PHYS T VISIT [facility] [place] [facility] 8 8 [facility] [place] [address] 8 [facility] OFFICE 11116 [facility] 8 8 [place] T VISIT FAMILY 25 CARE, MINUTES INC. EMERGENCY 27098 EMERGENCY MAGY 8 8 CARE VARUN L [facility] PHYS T VISIT [facility] [place] [facility] [place] [id number] 8 [facility] EMERGENCY 02556 [facility] 8 8 [facility] VISIT LIMITED/M INOR PROB OFFICE [id number] [facility] MINNA III, CON[facility]ULTAT 8 8 HOSP MED [facility] M NEW/ESTAB PATIENT 40 MIN HOSPITAL [facility] 8 [address] [facility] [address] 8 8 [facility] MEDICAL[facility] NTER EMERGENCY 56922 [facility], 8 8 SUSAN BREANN T DEPARTMEN MED CTR T VISIT MODERATE SEVERITY OFFICE [id number] [facility] T NEW 60 MINUTES HOSPITAL [facility] - 8 8 HOSPITAL OUTPATI T PERIODIC 26370 [facility] 8 8 POINT ISA C E MED EST FAMILY PATIENT CARE, [id number] INC. EMERGENCY [id number] ST 8 8 SUSAN DEPARTMEN T VISIT MEDICALCE MODERATE NTER SEVERITY [facility]OSPITAL ST - 8 8 SUSAN OUTPATIEN T MEDICALCE NTER EMERGENCY 96618 [facility], 8 8 SUSAN Pierce DEPARTMEN MED CTR T VISIT HIGH/URGE NT SEVERITY HOSPITAL ST - 8 8 SUSAN OUTPATIEN T MEDICALCE NTER EMERGENCY 49721 [facility], 8 8 SUSAN Mortensen DEPARTMEN MED CTR T VISIT HIGH/URGE NT SEVERITY EMERGENCY 87501 8 8 SUSAN DEPARTMEN T VISIT MEDICALCE MODERATE NTER SEVERITY [facility] ST - 8 8 SUSAN OUTPATIEN T MEDICALCE NTER EMERGENCY 14138 8 8 SUSAN DEPARTMEN T VISIT MEDICALCE MODERATE NTER SEVERITY EMERGENCY 61136 [facility] 8 8 VISHAL DAVIS DEPARTMEN MED CTR D T VISIT HIGH/URGE NT SEVERITY OFFICE 66780 [facility] 8 8 POINT ISA C T VISIT FAMILY 15 CARE, MINUTES INC. OFFICE 63269 [facility] 8 8 [place] T VISIT FAMILY 15 CARE, MINUTES INC. OFFICE 51256 [facility] 8 8 [facility] E T NEW 30 URGENT MINUTES CARE EMERGENCY 36044 8 8 SUSAN ADAMS T VISIT MEDICALCE MODERATE NTER SEVERITY [facility] - 8 8 [facility] 49136 [facility] 8 8 [facility] T VISIT MODERATE SEVERITY
--- OUTSIDE RECORDS SUMMARY | 2017-07-05 13:55 | External Medical Summary Rpt | CCD ---
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 IBARRAUTCHER RETROPERI 6 MEDICAL [place]OX[place]NE TONEAL IMAGING REAL TIME ASS W/IMAGE LIMITED DRUG TST G0477 ARIK ELISE PRESUMP;C 6 [facility] PBL BEING INC INC READ DC OPT OBV ONLY URNLS DIP 75101 NEVA PATRICIO 6 FAMILY ALLISON STICK/TAB HEALTH LET RGNT CTR NON-AUTO W/O MICRSCP US PREG 59803 NEVA PATRICIO UTERUS 6 FAMILY ALLISON W/DETAIL HEALTH CTR ARTIE 1ST GESTATION IADNA 97011 LAB PRETTY LAB PRETTY GARDNEREL 6 BENJAMIN BENJAMIN LA [facility] VAGINALIS DIRECT PROBE TQ URNLS DIP 86504 NEVA REYESR FLORA 6 FAMILY STICK/TAB HEALTH LET RGNT CTR NON-AUTO W/O MICRSCP IADNA 11934 LAB PRETTY LAB PRETTY PORFIRIO 6 BENJAMIN BENJAMIN SPECIES [facility] DIRECT PROBE TQ IADNA 86496 LAB PRETTY LAB PRETTY TRICHOMON 6 BENJAMIN BENJAMIN [facility] HOLDINGS VAGINALIS DIRECT PROBE TQ URNLS DIP 90936 NEVA MANCILLA 6 FAMILY STICK/TAB HEALTH LET RGNT CTR NON-AUTO W/O MICRSCP URNLS DIP 67179 NEVA PEREZ HOGGE ANGIE 6 FAMILY STICK/TAB HEALTH LET RGNT CTR NON-AUTO W/O MICRSCP COLLECTIO 37878 MERLY MORELAND N VENOUS 6 W W BLOOD REGIONAL REGIONAL VENIPUNCT MEDICAL MEDICAL URE INITIAL 92711 NEVA MANCILLA OBSERVATI 6 FAMILY ON HEALTH CARE/DAY CTR 30 MINUTES COMPREHEN 30873 MERLY MORELAND SIVE 6 W W METABOLIC REGIONAL REGIONAL PANEL MEDICAL MEDICAL URNLS DIP 85316 NEVA CO DAVIS LAURENT 6 FAMILY STICK/TAB HEALTH LET RGNT CTR NON-AUTO W/O MICRSCP URNLS DIP 55281 NEVA CO HOGGE ANGIE 6 FAMILY STICK/TAB HEALTH LET RGNT CTR NON-AUTO W/O MICRSCP IADNA 00191 MEDICAL MEDICAL CHLAMYDIA 6 DIAGNOSTI [facility] TRACHOMAT IS AMPLIFIED PROBE TQ IADNA 50332 MEDICAL MEDICAL NEISSERIA 6 [facility]NO[facility] GONORRHOE AE AMPLIFIED PROBE TQ HEPATITIS 72901 LAB PRETTY LAB PRETTY C 6 BENJAMIN BENJAMIN ANTIBODY [facility] DRUG TEST G0479 LAB PRETTY LAB PRETTY 6 BENJAMIN BENJAMIN PRESUMP;I [facility] NSTRUMENT ED CHEMISTRY ANLYZER DRUG TST G0483 LAB PRETTY LAB PRETTY DEFINITV [address] ID [facility] METH P DAY 22/MORE DR CL CULTURE 76181 LAB PRETTY LAB PRETTY BACTERIAL 6 BENJAMIN BENJAMIN [facility] QUANTTATI VE COLONY COUNT URINE OBSTETRIC 90807 LAB PRETTY LAB PRETTY PANEL 6 BENJAMIN BENJAMIN [facility] CREATININ 77598 LAB PRETTY LAB PRETTY E OTHER 6 BENJAMIN BENJAMIN SOURCE [facility] INJECTION J2405 ARIK ELISE 6 [facility] ONDANSETR INC INC ON HCL PER 1 MG UNCLASSIF J3490 ARIK ELISE IED DRUGS 6 [place] [address] ARIK ELISE LIPASE 6 [facility] INC INC BASIC 63040 ARIK ELISE METABOLIC 6 [facility] [place] [address] ARIK ELISE AMYLASE 6 [place] [address] ARIK ELISE INFUSION 6 [facility] THERAPY/P INC INC ROPHYLAXI S /DX 1ST TO 1 HR BLOOD 37601 ARIK ELISE COUNT 6 [facility] COMPLETE INC INC AUTO&AUTO DIFRNTL WBC URNLS DIP 55973 ARIK ELISE 6 [facility] STICK/TAB INC INC LET REAGENT AUTO MICROSCOP Y SCRATCH V2760 EARL MAGNO EARL MAGNO RESISTANT 6 COATING PER LENS LENS V2784 RAJAT KIRAN POLYCARBO 6 JOSSELINE OR EQUAL ANY INDEX PER LENS 1 VISN V2103 RAJAT KIRAN PLANO 6 TO+/-4.00 D SPHER 0.12-2.00 D CYL EA FRAMES V2020 RAJAT KIRAN PURCHASES 6 FITTING 31848 RAJAT KIRAN SPECTACLE 6 S XCPT APHAKIA MONOFOCAL OPHTH 68525 RAJAT EARL [facility] MEDICAL 6 XM&EVAL COMPRHNSV ESTAB PT 1/> THER 83897 ARIK ELISE PROPH/DX 5 [facility] NJX IV INC INC PUSH SINGLE/1S T SBST/DRUG GLUC BLD 03854 ARIK ELISE GLUC MNTR 5 [facility] DEV INC INC CLEARED FDA SPEC HOME USE THERAPEUT 62057 ARIK ELISE IC 5 [facility] INJECTION INC INC IV PUSH EACH NEW DRUG SKIN TEST 11438 NEVA CO LEYDI TON 5 PRIMARY TUBERCULO CARE SIS CENTER INTRADERM AL RADIOLOGI 27329 ARIK ELISE C 5 [facility] EXAMINATI INC INC ON PELVIS 1/2 VIEWS CULTURE 84172 ARIK ELISE BACTERIAL 5 [facility] INC INC QUANTTATI VE COLONY COUNT URINE URINE 80447 ARIK ELISE 5 [facility] TEST INC INC VISUAL COLOR CMPRSN METHS RADEX HIP 98812 ARIK ELISE 5 [facility] UNILATERA INC INC L COMPLETE MINIMUM 2 VIEWS RADEX 74395 ARIK ELISE SPINE 5 [facility] LUMBOSACR INC INC AL MINIMUM 4 VIEWS URNLS DIP 56151 ARIK ELISE 5 [facility] STICK/TAB INC INC LET REAGENT AUTO MICROSCOP Y COLLECTIO 33142 MERLY MORELAND N VENOUS 5 W W BLOOD [facility] MEDICAL URE GONADOTRO 06471 MERLY MORELAND PIN 5 W W CHORIONIC REGIONAL REGIONAL MEDICAL MEDICAL QUANTITAT MAXINE URINE 32003 ARIK ELISE 5 [facility] TEST INC INC VISUAL COLOR CMPRSN METHS IADNA 36636 MEDICAL MEDICAL CHLAMYDIA 5 DIAGNOSTI DIAGNOSTI [facility] LAB [facility] TRACHOMAT IS AMPLIFIED PROBE TQ IADNA 40707 MEDICAL MEDICAL NEISSERIA 5 DIAGNOSTI DIAGNOSTI [facility] LAB LLC GONORRHOE AE AMPLIFIED PROBE TQ CULTURE 04761 MEADOWVIE MEADOWVIE BACTERIAL 5 W W [facility] VE COLONY COUNT URINE CULTURE 18809 MEADOWVIE MEADOWVIE BACTERIAL 5 W W [facility] [place] [address] [facility] ABDOMEN & 4 MEDICAL NIKIA PELVIS IMAGING W/CONTRAS ASS T MATERIAL CUL 46667 MEADOWVIE MEADOWVIE PRSMPTV 4 W W [facility] ORGANISM MEDICAL MEDICAL SCRN W/COLONY ESTIMJ URINE 91307 MEADOWVIE MEADOWVIE 4 W W TEST [facility] VISUAL MEDICAL MEDICAL COLOR CMPRSN METHS INFUSION J7030 MEADOWVIE MEADOWVIE NORMAL 4 W W [facility]ICAL 1000 CC ANES 16536 [place] MARCIAL UPPER GI 4 LTH TAO ENDOSCOPY ANESTHESI PROXIMAL A PSC TO DUODENUM EGD 31012 MEADOWVIE MEADOWVIE TRANSORAL 4 W W BIOPSY [facility]/ [place] [address] MEADOWVIE MEADOWVIE SURG 4 W W PATHOLOGY [facility] MEDICAL MEDICAL GROSS&ANTONETTE ROSCOPIC EXAM IMHISTOCH 92804 MEADOWVIE MEADOWVIE EM/CYTCHM 4 W W [address] [place] [address] ANTIBODY MEDICAL MEDICAL STAIN PROCEDURE AVULSION 62648 ARIK ELISE NAIL 4 [facility] PLATE INC INC PARTIAL/C OMPLETE SIMPLE 1 WEDGE 05123 AMANDEEP JEAN-BAPTISTE EXCISION 4 SKIN NAIL FOLD RADEX [address] NASAL 3 SUSAN SUSAN BONES FT FT COMPLETE SABRINA BENNETT MINIMUM 3 VIEWS 3D 87848 ARIK ELISE RENDERING 2 [facility] INC INC W/INTERP& [place] [address] ARIK ELISE INFUSION 2 [facility] THERAPY INC INC PROPHYLAX IS/[place] [address] ARIK ELISE ABDOMEN & 2 [facility] PELVIS INC INC W/CONTRAS T MATERIAL LOCM Q9967 ARIK ELISE 300-399 2 [facility] MG/ML INC INC IODINE CONCENTRA TION PER ML THERAPEUT 16221 ARIK ELISE IC 2 [facility] INJECTION [place] [address] ARIK ELISE INFUSION 2 [facility] THERAPY/P INC INC ROPHYLAXI S /DX 1ST TO 1 HR BLOOD 07612 ARIK ELISE COUNT 2 [facility] COMPLETE INC INC AUTO&AUTO DIFRNTL WBC URNLS DIP 08096 ARIK ELISE 2 [facility] STICK/TAB INC INC LET REAGENT AUTO MICROSCOP Y URINE 17339 ARIK ELISE 2 [facility] TEST INC INC VISUAL COLOR CMPRSN METHS COMPREHEN 51021 ARIK ELISE SIVE 2 [facility] [place] [address] ARIK ELISE STREPTOCO 2 [facility] CCUS INC INC GROUP A FRAMES V2020 RAJAT EARL MAGNO PURCHASES 2 1 VISN V2103 RAJAT EARL MAGNO PLANO 2 TO+/-4.00 D SPHER 0.12-2.00 D CYL EA DETERMINA 18879 EARLREBECCA EARL MAGNO TION 2 REFRACTIV E STATE FITTING 50951 EARLREBECCA EARL MAGNO SPECTACLE 2 S XCPT APHAKIA MONOFOCAL OPHTH 76589 [facility]BECCA [facility] MED[facility] 2 XM&EVAL COMPRE NEW PT 1/> VST CULTURE 39335 ARIK ELISE BACTERIAL 2 [facility] INC INC QUANTTATI VE COLONY COUNT URINE URINE 53197 ARIK ELISE 2 [facility] TEST INC INC VISUAL COLOR CMPRSN METHS URNLS DIP 43449 ARIK ELISE 2 [facility] STICK/TAB INC INC LET REAGENT AUTO MICROSCOP Y URNLS DIP 52511 MEADOWVIE MEADOWVIE 2 W W STICK/TAB [facility] LET MEDICAL MEDICAL REAGENT AUTO MICROSCOP Y SUSCEPTIB 34670 MEADOWVIE MEADOWVIE LTY STDY 2 W W ANTIMICRB [facility] MEDICAL MICRO/AGA R DILUTJ URINE 06537 MEADOWVIE MEADOWVIE 2 W W TEST [facility] MEDICAL COLOR CMPRSN METHS CUL BACT 64443 MEADOWVIE MEADOWVIE AEROBIC 2 W W [facility] DEF[facility] EA ISOL CULTURE 43639 MEADOWVIE MEADOWVIE BACTERIAL 2 W W [facility] VE COLONY COUNT URINE EXCISION 00804 PAWSAT PAWSAT NAIL 1 MAR [place] [address] MEADOWVIE MEADOWVIE AMYLASE 1 [place] [address] [facility] ABDOMEN & 1 [facility] PELVIS RADIOLOGY W/O ASSOCIAT CONTRST 1/> BODY RE 3D 57932 [facility] RENDERING 1 TAO W/INTERP RADIOLOGY & ASSOCI[place] [address] MEADOWVIE MEADOWVIE LIPASE 1 W W [facility] MEDICAL THER 01496 MEADOWVIE MEADOWVIE PROPH/DX 1 W W NJX IV [facility] MEDICAL SINGLE/1S T SBST/DRUG URINE 74769 MEADOWVIE MEADOWVIE 1 W W TEST [facility] VISUAL MEDICAL MEDICAL COLOR CMPRSN METHS COMPREHEN 88058 MEADOWVIE MEADOWVIE SIVE 1 W W METABOLIC [facility] MEDICAL MEDICAL URNLS DIP 57826 MEADOWVIE MEADOWVIE 1 W W STICK/TAB [facility] MEDICAL MEDICAL REAGENT AUTO MICROSCOP Y COLLECTIO 74511 MEADOWVIE MEADOWVIE N VENOUS 1 W W BLOOD [facility] VENIPUNCT MEDICAL MEDICAL URE BLOOD 14899 JAZLYNWEBEN MEADOWVIE COUNT 1 W W COMPLETE [facility] AUTO&AUTO MEDICAL MEDICAL DIFRNTL WBC THERAPEUT 03671 MELLYWEBEN PICKARDWVIE IC 1 W W INJECTION [facility] IV PUSH MEDICAL MEDICAL EACH NEW DRUG AVULSION 05004 MERLY MORELAND NAIL 0 W W PLATE [facility] PARTIAL/C MEDICAL MEDICAL OMPLETE SIMPLE 1 EXCISION 50515 NORRIS MACIAS NAIL 0 EMERGENCY DEV [employer] PERMANENT REMOVAL RPR&REFIT 35690 RAMO EARL, G 0 VISION PATRICE A SPECTACLE S EXCEPT APHAKIA RADEX 15857 [facility] [place], SPINE 0 IVANA C CERVICAL RADIOLOGY 2 OR 3 VIEWS ASSOCIATE S [facility] 1 VISN V2103 RAMO EARL, PLANO 0 VISION PATRICE A TO+/-4.00 D SPHER 0.12-2.00 D CYL EA FRAMES V2020 RAMO EARL, PURCHASES 0 VISION PATRICE A ECG 65932 [facility] ROUTINE [address] [place] [address] ECG EAST EAST W/LEAST 12 LDS TRCG ONLY W/O I&R RADIOLOGI 79307 [facility] C EXAM [address] [place] [address] CHEST 2 EAST EAST VIEWS FRONTAL&L ATERAL RADEX 37464 MEADOWVIE MEADOWVIE FOREARM 2 9 W W VIEWS [facility] CENTER RADEX 31631 MEADOWVIE MEADOWVIE WRIST 9 W W COMPLETE [facility] 3 MEDICAL MEDICAL VIEWS CENTER CENTER RADEX 52049 [facility], WRIST 2 9 SHAYNA S VIEWS RADIOLOGY ASSOCIATE S [facility] CT PELVIS 87910 [facility], 9 SHAYNA S W/CONTRAS RADIOLOGY T MATERIAL ASSOCIATE [place] [facility] [place] [address] MEADOWVIE MEADOWVIE INFUSION 9 W W HYDRATION [facility] INITIAL MEDICAL MEDICAL 31 MIN-[address] [place] [address] MEADOWVIE MEADOWVIE ABDOMEN 9 W W W/CONTRAS [facility]AL [facility] T MEDICAL MEDICAL MATERIAL CENTER CENTER 3D 09023 [facility], RENDERING 9 SHAYNA S W/INTERP RADIOLOGY & POSTPROCE ASSOCIATE SS S PSC SUPERVISI ON RADIOLOGI 95513 MEADOWVIE MEADOWVIE C EXAM 9 W W CHEST 2 REGIONAL REGIONAL VIEWS MEDICAL MEDICAL FRONTAL&L CENTER CENTER ATERAL BASIC 57850 MEADOWVIE MEADOWVIE METABOLIC 9 W W PANEL REGIONAL REGIONAL CALCIUM MEDICAL MEDICAL TOTAL CENTER CENTER URINE 99537 MEADOWVIE MEADOWVIE 9 W W TEST REGIONAL REGIONAL VISUAL MEDICAL MEDICAL COLOR CENTER CENTER CMPRSN METHS COLLECTIO 89048 MEADOWVIE MEADOWVIE N VENOUS 9 W W BLOOD REGIONAL REGIONAL VENIPUNCT MEDICAL MEDICAL URE CENTER CENTER BLOOD 20728 MEADOWVIE MEADOWVIE COUNT 9 W W COMPLETE REGIONAL REGIONAL AUTO&AUTO MEDICAL MEDICAL DIFRNTL CENTER CENTER WBC URNLS DIP 98862 MEADOWVIE MEADOWVIE 9 W W STICK/TAB REGIONAL REGIONAL LET MEDICAL MEDICAL REAGENT CENTER CENTER AUTO MICROSCOP Y RADEX [address] MINIMUM 2 EAST EAST VIEWS AVULSION 83746 MEADOWVIE MEADOWVIE NAIL 9 W W PLATE REGIONAL REGIONAL PARTIAL/C MEDICAL MEDICAL OMPLETE CENTER CENTER SIMPLE 1 THER 39903 MEADOWVIE MEADOWVIE PROPH/DX 9 W W NJX IV REGIONAL REGIONAL PUSH MEDICAL MEDICAL SINGLE/1S CENTER CENTER T SBST/DRUG SEDIMENTA 74109 MEADOWVIE MEADOWVIE TION RATE 9 W W RBC REGIONAL REGIONAL NON-AUTOM MEDICAL MEDICAL ATED CENTER CENTER URINE 17387 MEADOWVIE MEADOWVIE 9 W W TEST REGIONAL REGIONAL VISUAL MEDICAL MEDICAL COLOR CENTER CENTER CMPRSN METHS COMPREHEN 67525 MEADOWVIE MEADOWVIE SIVE 9 W W METABOLIC REGIONAL REGIONAL PANEL MEDICAL MEDICAL CENTER CENTER RADIOLOGI 29530 MEADOWVIE MEADOWVIE C EXAM 9 W W CHEST 2 REGIONAL REGIONAL VIEWS MEDICAL MEDICAL FRONTAL&L CENTER CENTER ATERAL URNLS DIP 65766 MEADOWVIE MEADOWVIE 9 W W STICK/TAB REGIONAL REGIONAL LET MEDICAL MEDICAL REAGENT CENTER CENTER AUTO MICROSCOP Y CULTURE 33964 MEADOWVIE MEADOWVIE BACTERIAL 9 W W BLOOD [facility] AEROBIC MEDICAL MEDICAL W/ID CENTER CENTER ISOLATES BLOOD 22677 MEADOWVIE MEADOWVIE COUNT 9 W W COMPLETE [facility] AUTO&AUTO MEDICAL MEDICAL [place] [address] MEADOWVIE MEADOWVIE INFUSION 9 W W THERAPY/P [facility] ROPHYLAXI MEDICAL MEDICAL S /DX 1ST CENTER CENTER TO 1 HR COLLECTIO 04726 MEADOWVIE MEADOWVIE N VENOUS 9 W W BLOOD [facility] VENIPUNCT [place]ICAL [place] [address] MEADOWVIE MEADOWVIE INFLUENZA 9 W W A/B EACH [facility] MEDICAL MEDICAL CENTER CENTER IAADIADOO 97611 MEADOWVIE MEADOWVIE 9 W W STREPTOCO [facility] CCUS MEDICAL MEDICAL GROUP A CENTER CENTER CUL 67076 MEADOWVIE MEADOWVIE PRSMPTV 9 W W PTHGNC [facility] ORGANISM MEDICAL MEDICAL SCRN CENTER CENTER W/COLONY ESTIMJ CUL BACT 85541 MEADOWVIE MEADOWVIE XCPT 8 W W URINE [facility]AL [facility] BLOOD/STO MEDICAL MEDICAL OL CENTER CENTER AEROBIC ISOL CUL BACT 35779 MEADOWVIE MEADOWVIE AEROBIC 8 W W ADDL [facility] METHS MEDICAL MEDICAL DEFINITIV CENTER CENTER E EA ISOL SMR PRIM 06555 MEADOWVIE MEADOWVIE SRC 8 W W GRAM/GIEM REGIONAL REGIONAL SA STAIN MEDICAL MEDICAL BCT CENTER CENTER FUNGI/BJ L SUSCEPTIB 47647 MEADOWVIE MEADOWVIE LTY STDY 8 W W ANTIMICRB [facility] IAL MEDICAL MEDICAL MICRO/AGA CENTER CENTER R DILUTJ INCISION 13989 MEADOWVIE MEADOWVIE & 8 W W DRAINAGE [facility] ABSCESS MEDICAL MEDICAL SIMPLE/SI CENTER CENTER NGLE SUSCEPTIB 48777 MEADOWVIE MEADOWVIE ILITY 8 W W STUDY [facility] ANTIMICRO MEDICAL MEDICAL BIAL DISK CENTER CENTER METHOD FRAMES V2020 RAJAT EARL, PURCHASES 8 PATRICE A PATRICE A SPHERE V2100 RAJAT EARL, SINGLE 8 PATRICE A PATRICE A VISION PLANO +/- 4.00 PER LENS OPHTH 36679 EARLRAJAT, MEDICAL 8 PATRICE A PATRICE A XM&EVAL COMPRE NEW PT 1/> VST RPR&REFIT 29122 RAJAT EARL, G 8 PATRICE A PATRICE A SPECTACLE S EXCEPT APHAKIA ANESTHESI 15755 [facility] 8 MEDICAL MARCIO G INTRAORAL SERVICES WITH INC BIOPSY NOS TONSILLEC 58515 [facility] KAREEM & [address] [place] [address] ADENOIDEC KAREEM <AGE 13 [place] [address] [facility] THER [address] [place] [address] PROPH/DX 1ST >1 HR LEVEL III 06535 [facility] SURG [address] [place] [address] PATHOLOGY GROSS&ANTONETTE ROSCOPIC EXAM THER 78410 [facility] PROPH/DX [address] [place], [place] [address]X [facility] SUBQ/IM RADIOLOGI 69824 [facility] C EXAM [address] [place] [address] CHEST 2 VIEWS FRONTAL&[place] [address] [facility] MAXILLOFA [address] [place] [address] CIAL W/O CONTRAST MATERIAL SPMTRY 32543 [facility] W/VC [address] [place] [address] EXPIRATOR Y RADHA W/WO MXML VOL VNTJ PERCUTANE 09544 [facility] OUS TESTS [address] [place] [address] W/ALLERGE BAUTISTA EXTRACTS MCV4 00509 Wear MENACWKatrina 8 POINT ISA C CONJ VACC FAMILY GRPS CARE, [id number] INC. IM USE TDAP 87846 [facility], VACCINE 7 8 POINT ISA C YRS/> IM FAMILY CARE, INC. RADHA 06673 [facility], VACCINE 8 POINT ISA C LIVE FOR FAMILY SUBCUTANE CARE, OUS USE INC. HEPA 39474 [facility], VACCINE 2 8 POINT ISA C DOSE FAMILY SCHEDULE CARE, PED/ADOLE INC. SC IM USE 4VHPV 67204 [facility], VACCINE 3 8 POINT ISA C DOSE FAMILY SCHEDULE CARE, [place] [address] STREPTOCO 8 SUSAN SUSAN CCUS GROUP A MEDICALCE MEDICALCE NTER NTER RADEX [address] FOOT 8 SUSAN SUSAN COMPLETE MINIMUM 3 MEDICALCE MEDICALCE VIEWS NTER NTER RADEX [address] ANKLE 8 SUSAN SUSAN COMPLETE MINIMUM 3 MEDICALCE MEDICALCE VIEWS NTER NTER APPLICATI [address] ON OF 8 SUSAN SUSAN SPLINT MEDICALCE MEDICALCE NTER NTER IAADIADOO 43186 [facility], 8 POINT ISA C STREPTOCO FAMILY CCUS CARE, GROUP A INC. Encounters Encounter Start End Date Code Location Performer Type Date OFFICE 92939 [facility] OUTMAE 7 7 PSC T VISIT 15 MINUTES OFFICE [id number] [facility] 7 7 PHYSICIAN T VISIT S GROUP 25 MINUTES HOSPITAL MERLY [place] 7 7 W OUTPATIEN REGIONAL T MEDICAL OFFICE 97997 [facility] OUTPATIEN 7 7 FAMILY T VISIT HEALTH 15 CTR MINUTES EMERGENCY 82497 ANDREE ANDRADE DEPT 7 7 PHYSICIAN VISIT S, [facility] HIGH SEVERITY& THREAT FUN [facility] - 7 7 [facility] OUTPATIEN INC T EMERGENCY [id number] [facility] 7 7 [facility] DEPARTMEN INC T VISIT HIGH/URGE NT SEVERITY HOSPITAL [facility] - 7 7 [facility] OUTPATIEN INC T OFFICE 49406 [facility] OUTPATIEN 7 7 [facility] T VISIT 5 INC MINUTES [facility]OSPITAL [facility] - 7 7 [facility] OUTPATIEN INC T OFFICE 17308 [facility] OUTPATIEN 7 7 [facility] T VISIT 5 INC MINUTES [facility]OSPITAL [facility] - 7 7 [facility] OUTPATIEN INC T [facility] - 7 7 [facility] OUTPATIEN INC T OFFICE 02476 [facility] OUTPATIEN 7 7 PHYSICIAN T VISIT S GROUP 25 MINUTES OFFICE 16272 [facility] LOVE OUTPATIEN 7 7 PHYSICIAN T VISIT S GROUP 25 MINUTES HOSPITAL [facility] - 7 7 [facility] OUTPATIEN INC T [facility] - 7 7 [facility] OUTPATIEN INC T OFFICE 09834 [facility] OUTPATIEN 7 7 MEM [facility] T VISIT 5 INC [facility] - 7 7 [facility] OUTPATIEN INC [facility] - 7 7 [facility] OUTPATIEN INC [facility] - 7 7 [facility] OUTPATIEN INC T EMERGENCY 77236 [facility] 7 7 MEM [facility] DEPARTMEN INC T VISIT MODERATE SEVERITY EMERGENCY 84346 ANDREE BAEZ DEPT 7 7 PHYSICIAN U VISIT S, [facility] HIGH SEVERITY& THREAT [facility] MER[facility] - 7 7 W [facility] MERLY - 7 7 W [facility] MEDICAL OFFICE 63950 [place] OUTPATIEN 7 7 FAMILY T VISIT HEALTH 15 CTR MINUTES OFFICE 47666 [place] OUTPATIEN 7 7 FAMILY T VISIT HEALTH 15 CTR MINUTES HOSPITAL MERLY - 7 7 W [facility] MEDICAL OFFICE 79867 [place] OUTPATIEN 6 6 FAMILY T VISIT HEALTH 15 CTR MINUTES HOSPITAL MERLY - 6 6 [facility] OUTPATIEN [facility] T OFFICE 57721 [facility] [place] OUTPATIEN 6 6 FAMILY T VISIT HEALTH 15 CTR MINUTES OFFICE 31286 [facility] DIAZ ANGIE OUTPATIEN 6 6 FAMILY T VISIT HEALTH 15 CTR MINUTES HOSPITAL SEAMUSEBEN - 6 6 W [facility] MEDICAL OFFICE 95911 [facility] OUTPATIEN 6 6 W GENERAL DESTINEE T NEW 30 SURGERY MINUTES HOSPITAL [facility] - 6 6 [facility] OUTPATIEN [facility] OFFICE 03859 [facility] FARRELL OUTPATIEN 6 6 PHYSICIAN T NEW 30 S GROUP MINUTES OFFICE 31489 [facility] NUÑEZZESKI OUTPATIEN 6 6 FAMILY ALLISON T VISIT HEALTH 15 CTR MINUTES OFFICE 27305 [facility] FLORA OUTPATIEN 6 6 FAMILY T VISIT HEALTH 15 CTR MINUTES OFFICE 81361 [facility] DAVIS LAURENT OUTPATIEN 6 6 FAMILY T VISIT HEALTH 15 CTR MINUTES OFFICE 37492 [facility] DIAZ ANGIE OUTPATIEN 6 6 FAMILY T VISIT HEALTH 15 CTR MINUTES OFFICE 97130 [facility] DAV[facility] LAURENT OUTPATIEN 6 6 FAMILY T VISIT HEALTH 15 CTR MINUTES [facility]181 [facility] ANA DIAZ ANGIE OUTPATIEN 6 6 FAMILY T VISIT HEALTH 10 CTR MINUTES OFFICE 89753 [facility] N[facility] OUTPATIEN 6 6 PSC JEFF T VISIT 15 MINUTES OFFICE 98678 [facility] ANA DIAZ ANGIE OUTPATIEN 6 6 FAMILY T VISIT HEALTH 15 CTR MINUTES EMERGENCY 87616 ANDREE KAMINSKI [facility] 6 6 PHYSICIAN DEPARTMEN S, PLLC T VISIT HIGH/URGE NT SEVERITY EMERGENCY 40946 [facility] 6 6 [facility] T VISIT LOW/MODER SEVERITY HOSPITAL [facility] - 6 6 [facility] OUTPATIEN [facility] OFFICE 04093 [facility] 6 6 [place] HOSPITAL T VISIT 25 MINUTES EMERGENCY 21874 ANDREE BAEZ 6 6 PHYSICIAN [facility] T VISIT MODERATE SEVERITY HOSPITAL ARIK - 6 6 [facility] EMERGENCY 50644 ARIK 6 6 [facility] T VISIT LIMITED/M INOR PROB HOSPITAL ARIK - 5 5 [facility] EMERGENCY 22281 ARIK 5 5 [facility] T VISIT HIGH/URGE NT SEVERITY OFFICE 97389 NEVA FREEMAN OUTPATIEN 5 5 PRIMARY T VISIT CARE 10 CENTER MINUTES EMERGENCY 84981 ARIK 5 5 [facility] T VISIT LOW/MODER SEVERITY HOSPITAL ARIK - 5 5 [facility] HOSPITAL MERLY - 5 5 [facility] MEDICAL OFFICE 47050 NEVA MCGOWAN OUTPATIEN 5 5 PRIMARY T VISIT CARE 15 CENTER MINUTES EMERGENCY 43867 ANDREE BAEZ [address] [facility] T VISIT MODERATE SEVERITY HOSPITAL ARIK - 5 5 [facility] T EMERGENCY 02370 [facility] 5 5 [facility] T VISIT LOW/MODER SEVERITY PERIODIC 17127 NEVA MCGOWAN PREVENTIV 5 5 PRIMARY E MED EST CARE PATIENT CENTER 18-39 YRS EMERGENCY 88795 [facility] 5 5 DANYELL CHR DEPARTMEN EMERGENCY T VISIT PHYS HIGH/URGE NT SEVERITY OFFICE 57660 [facility] NINOSKA OUTPATIEN 5 5 PSC JEFF T VISIT 15 MINUTES HOSPITAL [facility]OW[facility] 5 5 [facility] 95526 [facility] N[facility]OSKA OUTPATIEN 5 5 PSC JEFF T VISIT 15 MINUTES HOSPITAL MEADOWVIE - 5 5 W [facility]PAT[facility] T MEDICAL OFFICE 89867 [facility]ARE NINOSKA OUTPATIEN 5 5 PSC JEFF T VISIT 15 MINUTES EMERGENCY 81789 [facility] DEPT 4 4 DANYELL VISIT EMERGENCY HIGH PHYS SEVERITY& THREAT [facility] - 4 4 [facility] 94640 [facility] 4 4 DON DON T NEW 45 MINUTES OFFICE 99891 NINOSKA NINOSKA OUTPATIEN 4 4 JEFF JEFF T VISIT 15 MINUTES EMERGENCY 49399 ARIK 4 4 [facility] DEPARTMEN INC T VISIT LOW/MODER SEVERITY EMERGENCY 69439 AIDE NOBLE 4 4 III WILLIS III WILLIS DEPARTMEN T VISIT MODERATE SEVERITY HOSPITAL ARIK - 4 4 [facility] OUT[facility] T [facility] 477[facility] JEFF JEFF T VISIT 15 MINUTES HOSPITAL ARIK - 4 4 [facility] OUTPATIEN INC T EMERGENCY 79631 AMANDEEP JEAN-BAPTISTE AMANDEEP JEAN-BAPITSTE 4 4 DEPARTMEN T VISIT MODERATE SEVERITY OFFICE 79065 NINOSKA MILLERETON OUTPATIEN 3 3 JEFF JEFF T VISIT 15 MINUTES OFFICE 73085 [facility] 3 3 [facility] T VISIT 5 HIGH HIGH MINUTES [facility] PERIODIC 79815 [facility] 3 3 PSC JEFF E MED EST PATIENT 12-17YRS [facility] ST - 3 3 [facility] FT T [place] EMERGENCY 0[address] [facility] FT T VISIT SABRINA MODERATE SEVERITY EMERGENCY 29866 SHAHIDA MORRIS [address] [facility] T VISIT HIGH/URGE NT SEVERITY OFFICE 09409 BRACKEN BRACKEN OUTPATIEN 3 3 [facility] T VISIT HIGH HIGH 10 [facility] MINUTES OFFICE 38477 BRACKEN BRACKEN OUTPATIEN [address] [place] [address] T VISIT HIGH HIGH 15 [facility] MINUTES EMERGENCY 27131 [facility] DEPT 2 2 EMERGENCY DADIE VISIT SERVICES HIGH SEVERITY& THREAT FUN EMERGENCY 92498 ARIK 2 2 [facility] DEPARTMEN INC T VISIT HIGH/URGE NT SEVERITY HOSPITAL ARIK - 2 2 [facility] OUTPATIEN INC T OFFICE 31737 BRACKEN BRACKEN OUTPATIEN 2 2 [facility] T VISIT HIGH HIGH 10 [facility] MINUTES OFFICE 02174 BRACKEN BRACKEN OUTPATIEN [address] [place] [address] T VISIT HIGH HIGH 10 [facility] MINUTES EMERGENCY 62629 ARIK 2 2 [facility] DEPARTMEN INC T VISIT LOW/MODER SEVERITY EMERGENCY 17729 AIDE NOBLE 2 2 III WILLIS III [facility] T VISIT MODERATE SEVERITY HOSPITAL ARIK - 2 2 [facility] OUTPATIEN INC T OFFICE 62980 BRACKEN BRACKEN OUTPATIEN 2 2 [facility] T VISIT HIGH HIGH 10 [facility] MINUTES OFFICE 03328 BRACKEN BRACKEN OUTPATIEN 2 2 [facility] T VISIT HIGH HIGH 15 [facility] MINUTES OFFICE 45206 NINOSKA XIAO OUTPATIEN 2 2 JEFF JEFF T VISIT 15 MINUTES EMERGENCY 32716 VENTURA LISA VENTURA LISA 2 2 DEPARTMEN T VISIT HIGH/URGE NT SEVERITY HOSPITAL ARIK - 2 2 [facility] OUTPATIEN INC T EMERGENCY 59365 ARIK 2 2 [facility] DEPARTMEN INC T VISIT LOW/MODER SEVERITY EMERGENCY 38518 MERLY SALAZAR 2 2 W [facility] T VISIT MEDICAL MODERATE SEVERITY HOSPITAL MERLY - 2 2 W OUTPATIEN REGIONAL T MEDICAL EMERGENCY 81852 NORRIS HORVATH 2 2 EMERGENCY CARLYN DEPARTMEN SERVICES T VISIT HIGH/URGE NT SEVERITY OFFICE 45173 PAWSAT PAWSAT OUTPATIEN 1 1 Nov T NEW 20 MINUTES OFFICE 10362 NINOSKA XIAO OUTPATIEN 1 1 JEFF JEFF T VISIT 15 MINUTES EMERGENCY 10636 ARIK 1 1 [facility] DEPARTMEN INC T VISIT LOW/MODER SEVERITY EMERGENCY 22872 NORRIS ANDRADE 1 1 EMERGENCY ANTONETTE [facility] SERVICES T VISIT MODERATE SEVERITY HOSPITAL ARIK - 1 1 [facility] OUTPATIEN INC T OFFICE 77710 BRACKEN BRACKEN OUTPATIEN 1 1 [facility] 10 MINUTES EMERGENCY 78438 MERLY 1 1 [facility] T VISIT MEDICAL HIGH/URGE NT SEVERITY EMERGENCY 15830 NORRIS HORVTAH DEPT 1 1 EMERGENCY CARLYN VISIT SERVICES HIGH SEVERITY& THREAT [facility] MERLY - 1 1 W OUTPATIEN REGIONAL T MEDICAL OFFICE 54274 BRACKEN BRACKEN OUTPATIEN 1 1 [facility] 10 MINUTES OFFICE 19202 BRACKEN BRACKEN OUTPATIEN 1 1 [facility] 10 MINUTES OFFICE 89268 BRACKEN BRACKEN OUTPATIEN 1 1 [facility] 10 MINUTES OFFICE 83618 BRACKEN BRACKEN OUTPATIEN 1 1 [facility] 10 MINUTES OFFICE 11479 BRACKEN BRACKEN OUTPATIEN 0 0 [facility] 10 MINUTES OFFICE 23426 BRACKEN BRACKEN OUTPATIEN 0 0 [facility] 10 MINUTES OFFICE 06493 BRACKEN BRACKEN OUTPATIEN 0 0 [facility] 10 MINUTES HOSPITAL MEADOWVIE - 0 0 W OUTPATIEN REGIONAL T MEDICAL EMERGENCY 80359 MEADOWVIE [address] [facility] T VISIT MEDICAL MODERATE SEVERITY PERIODIC 11939 KID [facility] PREVENTIV 0 0 PSC JEFF E MED EST PATIENT OFFICE 62700 BRACKEN BRACKEN OUTPATIEN 0 0 [facility] 10 MINUTES OFFICE 68887 BRACKEN BRACKEN OUTPATIEN 0 0 [facility] 10 MINUTES OFFICE 93924 BRACKEN BRACKEN OUTPATIEN 0 0 [facility] 10 MINUTES EMERGENCY 36593 MEADOWVIE [address] [facility] T VISIT MEDICAL LIMITED/M CENTER INOR PROB EMERGENCY 71954 NORRIS GARCIA, 0 0 EMERGENCY MARILEE Titus [facility] T VISIT MODERATE ASSOCIATE SEVERITY [facility] MEADOWVIE - 0 0 W OUTPATIEN REGIONAL T MEDICAL CENTER OFFICE 36416 BRACKEN BRACKEN OUTPATIEN 0 0 [facility] 10 MINUTES PERIODIC 12901 [facility] NINOSKA, PREVENTIV 0 0 PSC SANTIAGO R E MED EST PATIENT 12-17YRS OFFICE 89544 BRACKEN BRACKEN OUTPATIEN 0 0 [facility] 10 MINUTES HOSPITAL MEADOWVIE - 0 0 W [facility] T MEDICAL CENTER EMERGENCY 95557 MEADOWVIE 0 0 W [facility] T VISIT MEDICAL MODERATE CENTER SEVERITY EMERGENCY 08943 NORRIS HORVATH, 0 0 EMERGENCY [facility] SERVICES A T VISIT HIGH/URGE ASSOCIATE NT S SEVERITY OFFICE 06552 BRACKEN BRACKEN OUTPATIEN 0 0 [facility] T VISIT 5 [facility] MINUTES EMERGENCY 71882 [facility] 9 9 [facility] T VISIT HIGH/URGE NT SEVERITY HOSPITAL [place] [address] 9 [facility] OFF[facility] 70563 [facility] OUTPATIEN 9 9 [facility]ALTH [facility]LE T VISIT 5 [facility] MINUTES BANK ACCT OFFICE 73036 [facility] OUTPATIEN 9 9 [facility] T VISIT 5 [facility] MINUTES BANK ACCT OFFICE 67014 [facility] OUTPATIEN 9 9 [facility] T VISIT 5 [facility] MINUTES BANK ACCT OFFICE 36431 [facility] OUTPATIEN 9 9 [facility] T VISIT [facility] 10 BANK ACCT MINUTES OFFICE 42636 [facility] NINOSKA, OUTPATIEN 9 9 PSC SANTIAGO R T NEW 45 MINUTES HOSPITAL ME[facility]OW[facility] - 9 9 [facility] EMERGENC[facility] 95206 MEADOWVIE 9 9 W [facility] T VISIT MEDICAL MODERATE CENTER SEVERITY EMERGENCY 45008 NORRIS ARROYO 9 9 EMERGENCY , [facility] A T VISIT HIGH/URGE ASSOCIATE NT S SEVERITY EMERGENCY 82889 NORRIS OSBORNE, DEPT 9 9 EMERGENCY ELIZABETH L VISIT SERVICES HIGH SEVERITY& ASSOCIATE THREAT S [facility] EMERGENCY 62147 [facility] 9 [facility] T VISIT MEDICAL HIGH/URGE CENTER NT SEVERITY [facility] - 9 9 [facility] 71063 [facility] OUTPAT[facility]EN 9 9 HEALTH CO MIDDLE T VISIT [facility] 15 BANK ACCT MINUTES HOSPITAL [facility] - 9 9 [facility] T EMERGENCY 80744 EMERGENCY VEST, 9 9 CARE [facility] PHYS T VISIT [facility] [facility] [place] SE[place]ITY EMERGENCY 88600 [facility] 9 9 W [facility] T VISIT MEDICAL LOW/MODER CENTER SEVERITY [facility] - 9 9 [facility] EMERGENC[facility] 38224 NORRIS KRISHNAN, 9 9 EMERGENCY [facility] SERVICES T VISIT HIGH/URGE ASSOCIATE NT S SEVERITY [facility]OS[facility] - 9 9 W [facility] EMERGENCY 54423 NORRIS HORVATH, 9 9 EMERGENCY [facility] A T VISIT HIGH/URGE ASSOCIATE NT S SEVERITY EMERGENCY 47641 [facility] 9 9 W [facility] T VISIT MEDICAL MODERATE CENTER SEVERITY OFFICE 22521 [facility] OUTPATIEN 9 9 HEALTH CO MIDDLE T VISIT [facility] 15 BANK ACCT MINUTES [facility] 9 9 [facility] 05996 NORRIS XIAO, 9 9 EMERGENCY [facility] K T VISIT MODERATE ASSOCIATE SEVERITY S EMERGENCY 47323 [facility] 9 9 W [facility] T VISIT MEDICAL LOW/MODER CENTER SEVERITY OFFICE 01788 [facility] OUTPATIEN 9 9 HEALTH CO MIDDLE T VISIT [facility] 15 BANK ACCT MINUTES OFFICE 90205 [facility] OUTPATIEN 9 9 HEALTH CO MIDDLE T NEW 20 [facility] MINUTES [facility] ACCT EMERGENCY 56094 NORRIS ALTAMIRANO, 8 8 EMERGENCY SHEYLA Antonio [facility] T VISIT MODERATE ASSOCIATE SEVERITY S EMERGENCY 77680 [facility] 8 8 W [facility] T VISIT MEDICAL LOW/MODER CENTER [facility] - 8 8 [facility] EMERGENCY 15852 [facility] 8 8 [facility] VISIT LIMITED/M INOR PROB EMERGENCY 43257 EMERGENCY OPAL 8 8 CARE LISA F [facility] PHYS T VISIT [facility] [place] [facility] 8 8 [facility] [place] [address] 8 [facility] 75070 [facility] 8 8 [place] T VISIT FAMILY 25 CARE, MINUTES INC. EMERGENCY 79138 EMERGENCY MAGY 8 [address] [facility] PHYS T VISIT [facility] [place] SEVERITY HOSPITAL [place] [address] 8 [facility] EMERGENCY 39989 [facility] 8 8 [facility] VISIT LIMITED/M INOR PROB OFFICE 76760 [facility] MINNA III, CONSULTAT 8 8 HOSP MED PTEER ION CTR M NEW/ESTAB PATIENT 40 MIN [facility] [address] 8 8 [facility] MED[facility]TER EMERGENCY 28937 [facility], 8 8 SUSAN BREANN T DEPARTMEN MED CTR T VISIT MODERATE SEVERITY OFFICE 51813 [facility] 8 8 HOSPITAL T NEW 60 MINUTES HOSPITAL [facility] - 8 8 HOSPITAL OUTPATI T PERIODIC 84603 [facility] 8 8 POINT ISA C E MED EST FAMILY PATIENT CARE, 5-11YRS INC. EMERGENCY [address] 8 8 SUSAN DEPARTMEN T VISIT MEDICALCE MODERATE NTER SEVERITY HOSPITAL ST - 8 8 SUSAN OUTPATIEN T MEDICALCE NTER EMERGENCY 58578 [facility], 8 8 SUSAN Pierce DEPARTMEN MED CTR T VISIT HIGH/URGE NT SEVERITY HOSPITAL ST - 8 8 SUSAN OUTPATIEN T MEDICALCE NTER EMERGENCY 51315 [facility], 8 8 SUSAN Mortensen DEPARTMEN MED CTR T VISIT HIGH/URGE NT SEVERITY EMERGENCY 13256 8 8 SUSAN DEPARTMEN T VISIT MEDICALCE MODERATE NTER SEVERITY HOSPITAL ST - 8 8 SUSAN OUTPATIEN T MEDICALCE NTER EMERGENCY 65027 8 8 SUSAN DEPARTMEN T VISIT MEDICALCE MODERATE NTER SEVERITY EMERGENCY 00610 [facility] 8 8 VISHAL DAVIS DEPARTMEN MED CTR D T VISIT HIGH/URGE NT SEVERITY OFFICE 35298 [facility] 8 8 [place] C T VISIT FAMILY 15 CARE, MINUTES INC. OFFICE 49555 [facility] 8 8 [place] T VISIT FAMILY 15 CARE, MINUTES INC. OFFICE 65501 [facility] 8 8 [facility] E T NEW 30 URGENT MINUTES CARE EMERGENCY 95231 8 8 SUSAN ADAMS T VISIT MEDICALCE MODERATE NTER SEVERITY [facility]OSPITAL ST - 8 8 [facility] - 8 8 [facility] 15514 [facility] 8 8 [facility]AN [facility] MED [facility] T VISIT MODERATE SEVERITY
--- OUTSIDE RECORDS SUMMARY | 2017-07-05 13:57 | External Medical Summary Rpt | CCD ---
Author Author , WALLACE GONSALEZ Address Unknown Phone [email or web address] Support Name Relationship Address Phone ORTIZ, Next Of Kin Unknown Unavailable NAOMI Immunization Name Date Rout CVX Reac Dose Comm Prov Is Faci e tion ent ider Refu lity Give sed n HPV9 08-1 0.5 Hist PPMA No PPMA 6-20 mL oric YSVI YSVI 17 al LLE LLE Info rmat ion - Sour ce Unsp ecif ied [place] 08-0 10 999 Hist H119 No H119 o-IP 1-20 oric V 01 al Info rmat ion - Sour ce Unsp ecif ied DTaP 08-0 107 999 Hist H119 No H119 , UF 1-20 oric 01 al Info rmat ion - Sour ce Unsp ecif ied MMR 08-0 3 999 Hist H119 No H119 1-20 oric 01 al Info rmat ion - Sour ce Unsp ecif ied [place] 03-0 2 999 Hist H119 No H119 o-OP 4-19 oric V 98 al Info rmat ion - Sour ce Unsp ecif ied MMR 03-0 Intr 3 999 Hist H119 No H119 4-19 amus oric 98 cula al r Info rmat ion - Sour ce Unsp ecif ied Hib, 03-0 17 999 Hist H119 No H119 UF 4-19 oric 98 al Info rmat ion - Sour ce Unsp ecif ied
--- OUTSIDE RECORDS SUMMARY | 2017-07-05 13:57 | External Medical Summary Rpt | CCD ---
Author Author , WALLACE GONSALEZ Address Unknown Phone Support Name Relationship Address Phone ORTIZ, Next [...]
--- OUTSIDE RECORDS SUMMARY | 2017-07-05 13:58 | External Medical Summary Rpt ---
Author Author CHUCHOSAMARIA Jiang, [employer] Address Unknown Phone Unavailable Results Choriogonadotropin.beta subunit [Units] in 24 hour Urine Observa Value Referen Units Interpr Notes Date tion ce etation Range Choriogon NEG No No Meulendyk Sep 15 adotropin informati informati Lisa pickens 2017 8:20 .beta on in on in ne AM subunit source source [Units] data data in 24 hour Urine Comprehensive metabolic 2000 panel in Serum or Plasma Observa Value Referen Units Interpr Notes Date tion ce etation Range Albumin/G 1.1 - 1.8 No Normal No Sep 15 lobulin informati informati 2017 8:15 [Mass on in on in AM ratio] in source source Serum or data data Plasma Albumin 3.4 - 5.0 gm/dL Normal No Sep 15 [Mass/vol informati 2017 8:15 ume] in on in AM Serum or source Plasma data Alkaline 46 - 116 U/L Normal No Sep 15 phosphata informati 2017 8:15 se on in AM [Enzymati source c data activity/ volume] in Serum or Plasma Bilirubin 0.2 - 1.0 mg/dL Normal No Sep 15 .total informati 2017 8:15 [Mass/vol on in AM ume] in source Serum or data Plasma Urea 7 - 18 mg/dL Normal No Sep 15 nitrogen informati 2017 8:15 [Mass/vol on in AM ume] in source Serum or data Plasma Calcium 8.5 - mg/dL Normal No Sep 15 [Mass/vol 10.1 informati 2017 8:15 ume] in on in AM Serum or source Plasma data Chloride 98 - 107 mmoL/L Normal No Sep 15 [Moles/vo informati 2017 8:15 lume] in on in AM Serum or source Plasma data Carbon 21.0 - mmoL/L Normal No Sep 15 dioxide, 32.0 informati 2017 8:15 total on in AM [Moles/vo source lume] in data Serum or Plasma Creatinin 0.55 - mg/dL Normal No Sep 15 e 1.02 informati 2016 8:15 [Mass/vol on in AM ume] in source Serum or data Plasma Creatinin 50 - 200 ML/MIN Normal No Sep 15 e renal informati 2016 8:15 clearance on in AM source predicted data by Cockcroft -Gault formula Estimated 59- ML/MIN No REFERENCE Sep 15 informati RANGE: 2017 8:15 glomerula on in >60 AM r source ML/MIN/1. filtratio data 73 SQUARE n rate METERSIf (GF this patient is -A merican, then multiply theresult by 1.210. Globulin 1.3 - 3.2 gm/dL Normal No Sep 15 [Mass/vol informati 2016 8:15 ume] in on in AM Serum source data Glucose 74 - 106 mg/dL Normal No Sep 15 [Mass/vol informati 2016 8:15 ume] in on in AM Serum or source Plasma data Potassium 3.5 - 5.1 mmoL/L Low No Sep 15 informati 2016 8:15 [Moles/vo on in AM lume] in source Serum or data Plasma Sodium 136 - 145 mmoL/L Normal No Sep 15 [Moles/vo informati 2016 8:15 lume] in on in AM Serum or source Plasma data Aspartate 15 - 37 U/L Low No Sep 15 informati 2016 8:15 aminotran on in AM sferase source [Enzymati data c activity/ volume] in Serum or Plasma Alanine 12 - 78 U/L Normal No Sep 15 aminotran informati 2016 8:15 sferase on in AM [Enzymati source c data activity/ volume] in Serum or Plasma Protein 6.4 - 8.2 gm/dL Normal No Sep 15 [Mass/vol informati 2016 8:15 ume] in on in AM Serum or source Plasma data Lipase [Enzymatic activity/volume] in Serum or Plasma Observa Value Referen Units Interpr Notes Date tion ce etation Range Lipase 73 - 393 U/L Normal No Sep 15 [Enzymati informati 2017 8:15 c on in AM activity/ source volume] data in Serum or Plasma CBC W Auto Differential panel in Blood Observa Value Referen Units Interpr Notes Date tion ce etation Range Basophils 0 - 0.2 K/MM3 Normal No Sep 15 informati 2016 8:15 [#/volume on in AM ] in source Blood by data Automated count Basophils 0.1 - 2.0 % Normal No Sep 15 /100 informati 2017 8:15 leukocyte on in AM s in source Blood by data Automated count Eosinophi 0.0 - 0.4 K/mm3 Normal No Sep 15 ls informati 2016 8:15 [#/volume on in AM ] in source Blood by data Automated count Eosinophi 0.1 - % Normal No Sep 15 ls/100 12.0 informati 2016 8:15 leukocyte on in AM s in source Blood by data Automated count Granulocy 1.8 - 7.8 K/mm3 Normal No Sep 15 kash informati 2016 8:15 [#/volume on in AM ] in source Blood by data Automated count Granulocy 37.0 - % Normal No Sep 15 kash/100 80.0 informati 2016 8:15 leukocyte on in AM s in source Blood by data Automated count Hematocri 37.0 - % Normal No Sep 15 t [Volume 47.0 informati 2016 8:15 on in AM Fraction] source of Blood data Hemoglobi 12.2 - g/dL Normal No Sep 15 n 16.2 informati 2017 8:15 [Mass/vol on in AM ume] in source Blood data Lymphocyt 0.7 - 4.5 K/mm3 Normal No Sep 15 es informati 2017 8:15 [#/volume on in AM ] in source Unspecifi data ed specimen by Automated count Lymphocyt 10 - 50.0 % Normal No Sep 15 es informati 2017 8:15 [#/volume on in AM ] in source Unspecifi data ed specimen by Automated count Erythrocy 27 - 31.2 pg Normal No Sep 15 te mean informati 2017 8:15 corpuscul on in AM ar source hemoglobi data n [Entitic mass] Erythrocy 31.8 - g/dl Normal No Sep 15 te mean 35.4 informati 2016 8:15 corpuscul on in AM ar source hemoglobi data n concentra tion [Mass/vol ume] by Automated count Erythrocy 82.2 - fl Normal No Sep 15 te mean 97.8 informati 2016 8:15 corpuscul on in AM ar volume source [Entitic data volume] by Automated count Monocytes 0.1 - 1.0 K/mm3 Normal No Sep 15 informati 2016 8:15 [#/volume on in AM ] in source Blood by data Automated count Monocytes 1.7 - 9.3 % Normal No Sep 15 /100 informati 2017 8:15 leukocyte on in AM s in source Blood by data Automated count Platelet 7.4 - fl Normal No May 15 mean 10.4 informati 2016 8:15 volume on in AM [Entitic source volume] data in Blood by Automated count Platelets 142 - 424 K/mm3 Normal No Sep 15 informati 2016 8:15 [#/volume on in AM ] in source Blood data Erythrocy 4.2 - 5.4 M/mm3 Normal No Sep 15 kash informati 2016 8:15 [#/volume on in AM ] in source Amniotic data fluid Erythrocy 11.5 - % Normal No May 15 te 17.5 informati 2016 8:15 distribut on in AM ion width source [Entitic data volume] by Automated count Leukocyte 4.5 - K/MM3 Normal No May 15 s 13.0 informati 2016 8:15 [#/volume on in AM ] in source Blood data Comprehensive metabolic 2000 panel in Serum or Plasma Observa Value Referen Units Interpr Notes Date tion ce etation Range Albumin/G 1.1 - 1.8 No Normal No Apr 09 lobulin informati informati 2016 8:55 [Mass on in on in PM ratio] in source source Serum or data data Plasma Albumin 3.4 - 5.0 gm/dL Normal No Apr 09 [Mass/vol informati 2016 8:55 ume] in on in PM Serum or source Plasma data Alkaline 46 - 116 U/L Normal No Apr 09 phosphata informati 2016 8:55 se on in PM [Enzymati source c data activity/ volume] in Serum or Plasma Bilirubin 0.2 - 1.0 mg/dL Normal No Apr 09 .total informati 2016 8:55 [Mass/vol on in PM ume] in source Serum or data Plasma Urea 7 - 18 mg/dL Normal No Apr 09 nitrogen informati 2016 8:55 [Mass/vol on in PM ume] in source Serum or data Plasma Calcium 8.5 - mg/dL Normal No Apr 09 [Mass/vol 10.1 informati 2016 8:55 ume] in on in PM Serum or source Plasma data Chloride 98 - 107 mmoL/L Normal No Apr 09 [Moles/vo informati 2016 8:55 lume] in on in PM Serum or source Plasma data Carbon 21.0 - mmoL/L Normal No Apr 09 dioxide, 32.0 informati 2016 8:55 total on in PM [Moles/vo source lume] in data Serum or Plasma Creatinin 0.55 - mg/dL Normal No Apr 09 e 1.02 informati 2016 8:55 [Mass/vol on in PM ume] in source Serum or data Plasma Creatinin 50 - 200 ML/MIN Normal No Apr 09 e renal informati 2016 8:55 clearance on in PM source predicted data by Cockcroft -Gault formula Estimated 59- ML/MIN No REFERENCE Apr 09 informati RANGE: 2017 8:55 glomerula on in >60 PM r source ML/MIN/1. filtratio data 73 SQUARE n rate METERSIf (GF this patient is -A merican, then multiply theresult by 1.210. Globulin 1.3 - 3.2 gm/dL High No Apr 09 [Mass/vol informati 2016 8:55 ume] in on in PM Serum source data Glucose 74 - 106 mg/dL Normal No Apr 09 [Mass/vol informati 2016 8:55 ume] in on in PM Serum or source Plasma data Potassium 3.5 - 5.1 mmoL/L Normal No Apr 09ati 2016 8:55 [Moles/vo on in PM lume] in source Serum or data Plasma Sodium 136 - 145 mmoL/L Normal No Apr 09 [Moles/vo informati 2016 8:55 lume] in on in PM Serum or source Plasma data Aspartate 15 - 37 U/L Normal No Apr 09 informati 2016 8:55 aminotran on in PM sferase source [Enzymati data c activity/ volume] in Serum or Plasma Alanine 12 - 78 U/L Normal No Apr 09 aminotran informati 2016 8:55 sferase on in PM [Enzymati source c data activity/ volume] in Serum or Plasma Protein 6.4 - 8.2 gm/dL Normal No Apr 09 [Mass/vol informati 2016 8:55 ume] in on in PM Serum or source Plasma data CBC W Auto Differential panel in Blood Observa Value Referen Units Interpr Notes Date tion ce etation Range Basophils 0 - 0.2 K/MM3 Normal No Apr 09 informati 2016 8:55 [#/volume on in PM ] in source Blood by data Automated count Basophils 0.1 - 2.0 % Normal No Srinivas 17 /100 informati 2017 8:55 leukocyte on in PM s in source Blood by data Automated count Eosinophi 0.0 - 0.4 K/mm3 Normal No Apr 09 ls informati 2016 8:55 [#/volume on in PM ] in source Blood by data Automated count Eosinophi 0.1 - % Normal No Apr 09 ls/100 12.0 informati 2016 8:55 leukocyte on in PM s in source Blood by data Automated count Granulocy 1.8 - 7.8 K/mm3 Normal No Apr 09 kash informati 2016 8:55 [#/volume on in PM ] in source Blood by data Automated count Granulocy 37.0 - % Normal No Apr 09 kash/100 80.0 informati 2016 8:55 leukocyte on in PM s in source Blood by data Automated count Hematocri 37.0 - % Normal No Apr 09 t [Volume 47.0 informati 2016 8:55 on in PM Fraction] source of Blood data Hemoglobi 12.2 - g/dL Normal No Apr 09 n 16.2 informati 2016 8:55 [Mass/vol on in PM ume] in source Blood data Lymphocyt 0.7 - 4.5 K/mm3 Normal No Apr 09 es informati 2016 8:55 [#/volume on in PM ] in source Unspecifi data ed specimen by Automated count Lymphocyt 10 - 50.0 % Normal No Apr 09 es informati 2016 8:55 [#/volume on in PM ] in source Unspecifi data ed specimen by Automated count Erythrocy 27 - 31.2 pg Normal No Apr 09 te mean informati 2016 8:55 corpuscul on in PM ar source hemoglobi data n [Entitic mass] Erythrocy 31.8 - g/dl Normal No Apr 09 te mean 35.4 informati 2016 8:55 corpuscul on in PM ar source hemoglobi data n concentra tion [Mass/vol ume] by Automated count Erythrocy 82.2 - fl Normal No Apr 09 te mean 97.8 informati 2016 8:55 corpuscul on in PM ar volume source [Entitic data volume] by Automated count Monocytes 0.1 - 1.0 K/mm3 Normal No Apr 09 informati 2016 8:55 [#/volume on in PM ] in source Blood by data Automated count Monocytes 1.7 - 9.3 % Normal No Apr 09 informati 2016 8:55 leukocyte on in PM s in source Blood by data Automated count Platelet 7.4 - fl Normal No Apr 09 mean 10.4 informati 2016 8:55 volume on in PM [Entitic source volume] data in Blood by Automated count Platelets 142 - 424 K/mm3 Normal No Apr 09 informati 2016 8:55 [#/volume on in PM ] in source Blood data Erythrocy 4.2 - 5.4 M/mm3 Normal No Apr 09 kash informati 2016 8:55 [#/volume on in PM ] in source Amniotic data fluid Erythrocy 11.5 - % Normal No Apr 09 te 17.5 informati 2016 8:55 distribut on in PM ion width source [Entitic data volume] by Automated count Leukocyte 4.5 - K/MM3 Normal No Apr 09 s 13.0 informati 2016 8:55 [#/volume on in PM ] in source Blood data Amylase [Enzymatic activity/volume] in Serum or Plasma Observa Value Referen Units Interpr Notes Date tion ce etation Range Amylase 25 - 115 U/L Normal No Apr 09 [Enzymati informati 2016 8:55 c on in PM activity/ source volume] data in Serum or Plasma Lipase [Enzymatic activity/volume] in Serum or Plasma Observa Value Referen Units Interpr Notes Date tion ce etation Range Lipase 73 - 393 U/L Normal No Apr 09 [Enzymati informati 2016 8:55 c on in PM activity/ source volume] data in Serum or Plasma
== END 2017-06-27 10:32 | disposition home or self-care (01) ==
LOC: UTC 09:06
DX: S43.402A Unspecified sprain of left shoulder joint, initial encounter (principal); F17.210 Nicotine dependence, cigarettes, uncomplicated; J45.909 Unspecified asthma, uncomplicated; X50.0XXA Overexertion from strenuous movement or load, initial encounter; Y92.69 Other specified industrial and construction area as the place of occurrence of the external cause; Y99.0 Civilian activity done for income or pay

== ENCOUNTER 2017-07-17 15:22 | Emergency (ER) | payer MEDICAID ==
[~2017-07-17] VITALS: Ht 157.5 cm; Wt 63.5 kg
[~2017-07-17 15:22] MED LIST changes: +NAPROSYN 500MG500 MG PO
--- OUTSIDE RECORDS SUMMARY | 2017-07-17 15:31 | External Medical Summary Rpt | CCD ---
Demographics Preferred Language Italian Marital Status Unknown Church Affiliation Unknown Race Unknown Ethnic Group Unknown Author Author , WALLACE GONSALEZ Address Unknown Phone [email or web address] Team Providers Care Telemedicine Physician Name Role Phone [facility], Unavailable Unavailable [facility] [place] [employer] [place], Unavailable Unavailable [facility] # Unavailable Unavailable [id number], [facility] # [id number] Purpose Continuity of Care Document - 12-04-2009 through 2016 Medications Na ND Rx Da Fi Fi Am Da Di Ph RX Ph St me C No te ll ll ou ys ag ar # ys at rm s nt no ma ic us Or Da si cy ia de te s n re d CE 65 10 10 0 10 4 DE 64 GA Ac PH 86 -1 -1 .0 AN 17 IN ti AL 20 1- 2- 00 S 08 EY ve EX 01 20 20 PH 9 IN 90 11 11 AR AZ 5 MA CH 50 CY AE 0 L MG IN S C CA PS UL E SI 00 09 09 5 30 30 [...] R MG IN C TA BL ET NJ 37 09 09 5 30 30 DE [...] MA SE CY Y R IN C AM 00 09 09 5 30 30 [...] NT A MG ER TA BL ET NJ 68 04 04 24 4 NE 10 [...] 04 25 8 NE 10 PO Ac NJ 46 -2 -2 .0 WP 15 RN [...] 11 28 28 DE 63 KE Ac 2 .0 AN 98 ET ti 35 0- 1- 00 S 66 ON ve 66 20 20 PH 0 15 10 10 AR CA 8 MA SE CY Y R IN C NJ 37 08 10 4 30 30 DE 63 KE Ac IL -1 .0 AN 98 ET ti OS 00 0- 2- 00 S 64 ON ve EC 45 20 20 PH 9 50 10 10 AR CA OT 3 MA SE C CY Y 20 R .6 IN C MG TA BL ET NA 00 08 10 2 17 30 DE 63 KE Ac SO 1 .0 AN 98 ET ti NE 51 0- 2- 00 S 65 ON ve X 28 20 20 PH 0 50 80 10 10 AR CA 1 MA SE MC CY Y G R NA IN SA C L SP RA Y LO 45 08 10 4 30 30 DE 63 KE Ac RA 80 1 -1 .0 AN 98 ET ti TA 20 0- 2- 00 S 65 ON ve DI 65 20 20 PH 1 NE 08 10 10 AR CA 7 MA SE 10 CY Y R MG IN C TA BL ET SI 00 08 10 4 30 30 DE 63 KE Ac NG -1 .0 AN 98 ET ti UL [...] IN 25 C MG TA B 00 08 09 11 28 28 DE [...] L IN 25 C MG TA B NJ 37 08 08 4 30 30 DE [...] 1 25 6 WA 74 PO Ac NJ 09 -0 -1 .0 L- 51 RN [...]
--- OUTSIDE RECORDS SUMMARY | 2017-07-17 15:31 | External Medical Summary Rpt | CCD ---
Demographics Preferred Language Maori Marital Status Unknown Yazdanism Affiliation Unknown Race Unknown Ethnic Group Unknown Author Author , WALLACE GONSALEZ Address Unknown Phone [email or web address] Team Providers Care Potato Bucker Name Role Phone [facility], Unavailable Unavailable [facility] [place] [employer] [place], Unavailable Unavailable [facility] # Unavailable Unavailable [id number], [facility] # [id number] Purpose Continuity of Care Document - 12-04-2009 [...] PH 9 IN 90 11 11 AR NC 5 MA CH 50 CY AE 0 [...] R MG IN C TA BL ET NV 37 09 09 5 30 30 DE [...] NT A MG ER TA BL ET NV 68 04 04 24 4 NE 10 [...] 04 25 8 NE 10 PO Ac NV 46 -2 -2 .0 WP 15 RN [...] MA SE CY Y R IN C NV 37 08 10 4 30 30 DE [...] L IN 25 C MG TA B NV 37 08 08 4 30 30 DE [...] 1 25 6 WA 74 PO Ac NV 09 -0 -1 .0 L- 51 RN [...]
--- OUTSIDE RECORDS SUMMARY | 2017-07-17 15:32 | External Medical Summary Rpt | CCD ---
Author Author , WALLACE GONSALEZ Address Unknown Phone [email or web address] Support Name Relationship Address Phone ORTI[employer], Next [...]
--- OUTSIDE RECORDS SUMMARY | 2017-07-17 15:32 | External Medical Summary Rpt | CCD ---
Author Author , WALLACE GONSALEZ Address Unknown Phone [email or web address] Support Name Relationship Address Phone ORTIZ, Next [...]
--- NOTE | 2017-07-17 15:48 | Urgent Treatment Center Report ---
History of Present Issue Date/Time Seen by Provider 07/17/17 1539 Visit Reason Pt arrived:Walked Presenting Problem:PT C/O OF DIZZINESS AND LIGHTHEADEDNESS AND EXTREME THIRS. Location if Accident: Onset of symptoms date/time:/ or onset unknown for:MEDICAL HX UNKNOWN Have you (or family members/close friends) recently traveled outside the [place]? N If Yes, where/when: Have you had exposure to infectious disease within the past month? TB? Other? Specify: Patient state that she has not been feeling well for several days now. States that she has felt extremly thirsty and been drinking lots of water. States that her father is a diabetic and had her check her finger stick a day or so ago and it was over 200 States that she State that she has continued to feel weak and not feeling like herself. Noticed that her lips look dry ALLERGIES Coded Allergies: No Known Allergies (09/01/16) Home Medications Active Scripts NAPROXEN (NAPROSYN 500MG TAB) 500 MG PO BID #14 TAB Prov: 06/27/17 History Medical History General CAD? No Angina: No LA: No Hypertension? No Hyperlipidemia? No CHF? No DVT? No PE? No COPD? No Asthma? Yes Anemia? No GERD? No Gastric ulcers? No GI Bleed? No Hernia? No Thyroid Problems? No Hypothyroidism? No CVA? No Seizures? Yes Diabetes? No Renal Insuffiency? No UTI? No Stones? No BPH? No GB Disease: No Nephritic Syndrome? No Asplenia? No Hepatitis? No Sickle Cell Disease? No Arthritis? No Migraines? Yes Cataracts? No Glaucoma? No MRSA? No HIV? No TB? No Anxiety? No Depression? No Cancer? No More? 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 Respiratory denies cough, denies shortness of breath, denies wheezing Cardiovascular denies chest pain, denies palpitations Gastrointestinal denies abdominal pain, denies diarrhea, denies nausea, denies vomiting Genitourinary dysuria, frequency. Psychiatric/Neurological denies anxiety, denies depressed, denies headache, denies numbness, denies tingling, denies tremors, weakness Comment State that she has been urininated small amounts frequently Physical Exam Vital Signs Vital Signs Date Time Temp Pulse Resp B/P Pulse O2 O2 Flow FiO2 Ox Delivery Rate 07/17 1530 98.7 103 20 141/93 98 General Appearance no apparent distress, fatigued, Pale in color dressed appropriately for weather Eye Exam - bilateral eye normal exam, bilateral eye PERRL Ear, Nose, Throat Lips dry and cracked Mucous membranes moist Neck normal inspection, non-tender, supple, full range of motion Respiratory Status Yes: trachea midline, chest symmetrical, non tender chest. No: respiratory distress. Lung Sounds bilateral: normal breath sounds, lungs clear. Cardiovascular normal exam, regular rate/rhythm Gastrointestinal normal bowel sounds, normal exam, no guarding, no rebound Back normal inspection, no CVA tenderness, gait normal Neurologic alert, normal exam, oriented x 3 Glascow Coma Scale Glascow Coma Scale Response Value EYE response: 4 Spontaneously 4 MOTOR response: 6 OBEYS 6 VERBAL response: 5 Oriented & Converses 5 Total 15 Mental status normal mood/affect Medical Decision Making LABS/Meds/Orders Pt receiving controlled substance in ED? No Results/Orders Laboratory Tests 07/17/17 1546: Hemoglobin A1c 5.4 07/17/17 1546: Sodium 142, Potassium 3.8, Chloride 105, Carbon Dioxide 28, BUN 8, Creatinine 0.7, Estimated Creat Clear 127, Estimated GFR (MDRD) 106, Glucose 89, Calcium 9.3, Total Bilirubin 0.4, AST 16, ALT 22, Alkaline Phosphatase 103, Total Protein 7.4, Albumin 4.1, Globulin 3.3 H, Albumin/Globulin Ratio 1.2, TSH 0.90, WBC 7.8, RBC 4.88, Hgb 13.7, Hct 42.1, MCV 86.3, RDW 13.2, Plt Count 271, MPV 8.5, Gran % 67.8, Gran # 5.3, Lymphocytes % 26.5, Monocytes % 4.4, Eosinophils % 0.7, Basophils % 0.6, Lymphocytes # 2.1, Monocytes # 0.3, Eosinophils # 0.1, Basophils # 0.1, PUBS MCHC 32.6, MCH 28.2 07/17/17 1540: Urine Color YELLOW, Urine Appearance Cloudy, Urine pH 7.0, Ur Specific [place] 1.020, Urine Protein NEG, Urine Ketones NEG, Urine Blood NEG, Urine Nitrate NEG, Urine Bilirubin NEG, Urine Urobilinogen 0.2, Ur Leukocyte Esterase TRACE H, Urine Glucose NEG 07/17/17 1539: Urine Test NEGATIVE Orders Procedure Date/time Status GLYCOHEMOGLOBIN (A1C) 07/17 1659 Complete ORTHOSTATIC B/P 07/17 1542 Active [facility] URINE DIPSTICK 07/17 1540 Complete [facility] URINE 07/17 1539 Active THYROID STIMULATING HORMONE 07/17 1539 Complete CBC WITH AUTO DIFF 07/17 153 Complete CHEM 12 PROFILE 07/17 1539 Complete Progress [facility] Progress Notes 1 Comment Contacted lab to check on CMP and TSH advised that would about 20-30 more minutes before it would be done [facility] Progress Notes 2 Comment Still awaiting CMP and TSH and will review labs [facility] Progress Notes 3 Comment Labs reviewed Ua observed and Leukocytes observed in urine [facility] Progress Notes [address] Poole and agreed with course of treatment and discussed labs patient advised to follow up with family doctor if symptoms continue Departure Departure Time of Disposition 1734 Disposition DC Home or Self Care(routine) Clinical Impression Primary Impression: Cystitis Condition STABLE Referrals Randolph BRIGHT,Raul Mccoy (Family): 2 Days-Call Office if no improvement or worsening of symptoms Patient Instructions DI for Urinary Tract Infection (UTI), Urinary Tract Infection Additional Instructions Drink plenty of water *Increase fluids. Water not Soda or Tea *Start antibiotic immediately and be sure to take as ordered for the FULL length of time although you should start to see improvement over the next 48 hours *Pyridium as needed Remember this medication will turn your urine [place]. This is normal but it will stain what ever it gets on *You should not use Pyridium for more than 48 hours. If so , follow up with your primary physician to review urine culture and ensure that antibiotic is adequate for infection *Be SURE to follow up anytime for new or worsening symptoms. AND in 48 hours for urine culture results AND in 10-14 days to repeat UA to ensure infection is resolved and blood no longer present *Be sure to let your PCP know that we sent urine cultures from the [facility] so they can follow up to ensure that you area the on the correct antibiotic Discharge Counseling Counseled pt/family regarding diagnosis, test results, medications/RX, home care, follow up needs Prescriptions Current Visit Scripts SULFAMETHOXAZOLE W/TRIMETHOPRI (Bactrim Ds Tab) 1 TABLET PO BID #20 TAB at [id number]
--- NOTE | 2017-07-17 15:48 | Urgent Treatment Center Report ---
History of Present Issue Date/Time Seen by Provider 07/17/17 1539 Visit Reason Pt arrived:Walked Presenting Problem:PT C/O OF DIZZINESS AND LIGHTHEADEDNESS AND EXTREME THIRS. Location if Accident: Onset of symptoms date/time:/ or onset unknown for:MEDICAL HX UNKNOWN Have you (or family members/close friends) recently traveled outside the [place]? N If Yes, where/when: Have you had exposure to infectious disease within the past month? TB? Other? Specify: Patient state that she has not been feeling well for several days now. States that she has felt extremly thirsty and been drinking lots of water. States that her father is a diabetic and had her check her finger stick a day or so ago and it was over 200 States that she State that she has continued to feel weak and not feeling like herself. Noticed that her lips look dry ALLERGIES Coded Allergies: No Known Allergies (09/01/16) Home Medications Active Scripts NAPROXEN (NAPROSYN 500MG TAB) 500 MG PO BID #14 TAB Prov: 06/27/17 History Medical History General CAD? No Angina: No MS: No Hypertension? No Hyperlipidemia? No CHF? No DVT? No PE? No COPD? No Asthma? Yes Anemia? No GERD? No Gastric ulcers? No GI Bleed? No Hernia? No Thyroid Problems? No Hypothyroidism? No CVA? No Seizures? Yes Diabetes? No Renal Insuffiency? No UTI? No Stones? No BPH? No GB Disease: No Nephritic Syndrome? No Asplenia? No Hepatitis? No Sickle Cell Disease? No Arthritis? No Migraines? Yes Cataracts? No Glaucoma? No MRSA? No HIV? No TB? No Anxiety? No Depression? No Cancer? No More? No Immunization HX DT/Tetanus 1-4 YRS Flu 2015- Flu Season Pneumonia Received In Past Surgical Hx Previous Surgery?Y T & A DENTAL WORK DONE WISDOM TEETH POLYP REMOVED FROM [facility] [employer] Hx LMP 3 Weeks Ago Social History Smoking Hx Smoker: Never Smoker Tobacco: No Packs/day < 1 Pack Alcohol Alcohol: No Review of Systems All Other Systems Reviewed and Negative Constitutional denies chills, denies fever, malaise, weakness ENT denies: no symptoms reported. Respiratory denies cough, denies shortness of breath, denies wheezing Cardiovascular denies chest pain, denies palpitations Gastrointestinal denies abdominal pain, denies diarrhea, denies nausea, denies vomiting Genitourinary dysuria, frequency. Psychiatric/Neurological denies anxiety, denies depressed, denies headache, denies numbness, denies tingling, denies tremors, weakness Comment State that she has been urininated small amounts frequently Physical Exam Vital Signs Vital Signs Date Time Temp Pulse Resp B/P Pulse O2 O2 Flow FiO2 Ox Delivery Rate 07/17 1530 98.7 103 20 141/93 98 General Appearance no apparent distress, fatigued, Pale in color dressed appropriately for weather Eye Exam - bilateral eye normal exam, bilateral eye PERRL Ear, Nose, Throat Lips dry and cracked Mucous membranes moist Neck normal inspection, non-tender, supple, full range of motion Respiratory Status Yes: trachea midline, chest symmetrical, non tender chest. No: respiratory distress. Lung Sounds bilateral: normal breath sounds, lungs clear. Cardiovascular normal exam, regular rate/rhythm Gastrointestinal normal bowel sounds, normal exam, no guarding, no rebound Back normal inspection, no CVA tenderness, gait normal Neurologic alert, normal exam, oriented x 3 Glascow Coma Scale Glascow Coma Scale Response Value EYE response: 4 Spontaneously 4 MOTOR response: 6 OBEYS 6 VERBAL response: 5 Oriented & Converses 5 Total 15 Mental status normal mood/affect Medical Decision Making LABS/Meds/Orders Pt receiving controlled substance in ED? No Results/Orders Laboratory Tests 07/17/17 1546: Hemoglobin A1c 5.4 07/17/17 1546: Sodium 142, Potassium 3.8, Chloride 105, Carbon Dioxide 28, BUN 8, Creatinine 0.7, Estimated Creat Clear 127, Estimated GFR (MDRD) 106, Glucose 89, Calcium 9.3, Total Bilirubin 0.4, AST 16, ALT 22, Alkaline Phosphatase 103, Total Protein 7.4, Albumin 4.1, Globulin 3.3 H, Albumin/Globulin Ratio 1.2, TSH 0.90, WBC 7.8, RBC 4.88, Hgb 13.7, Hct 42.1, MCV 86.3, RDW 13.2, Plt Count 271, MPV 8.5, Gran % 67.8, Gran # 5.3, Lymphocytes % 26.5, Monocytes % 4.4, Eosinophils % 0.7, Basophils % 0.6, Lymphocytes # 2.1, Monocytes # 0.3, Eosinophils # 0.1, Basophils # 0.1, PUBS MCHC 32.6, MCH 28.2 07/17/17 1540: Urine Color YELLOW, Urine Appearance Cloudy, Urine pH 7.0, Ur Specific [place] 1.020, Urine Protein NEG, Urine Ketones NEG, Urine Blood NEG, Urine Nitrate NEG, Urine Bilirubin NEG, Urine Urobilinogen 0.2, Ur Leukocyte Esterase TRACE H, Urine Glucose NEG 07/17/17 1539: Urine Test NEGATIVE Orders Procedure Date/time Status GLYCOHEMOGLOBIN (A1C) 07/17 1659 Complete ORTHOSTATIC B/P 07/17 1542 Active [facility] URINE DIPSTICK 07/17 1540 Complete [facility] URINE 07/17 1539 Active THYROID STIMULATING HORMONE 07/17 1539 Complete CBC WITH AUTO DIFF 07/17 153 Complete CHEM 12 PROFILE 07/17 1539 Complete Progress [facility] Progress Notes 1 Comment Contacted lab to check on CMP and TSH advised that would about 20-30 more minutes before it would be done [facility] Progress Notes 2 Comment Still awaiting CMP and TSH and will review labs [facility] Progress Notes 3 Comment Labs reviewed Ua observed and Leukocytes observed in urine [facility] Progress Notes [address] Poole and agreed with course of treatment and discussed labs patient advised to follow up with family doctor if symptoms continue Departure Departure Time of Disposition 1734 Disposition DC Home or Self Care(routine) Clinical Impression Primary Impression: Cystitis Condition STABLE Referrals Randolph BRIGHT,Raul Mccoy (Family): 2 Days-Call Office if no improvement or worsening of symptoms Patient Instructions DI for Urinary Tract Infection (UTI), Urinary Tract Infection Additional Instructions Drink plenty of water *Increase fluids. Water not Soda or Tea *Start antibiotic immediately and be sure to take as ordered for the FULL length of time although you should start to see improvement over the next 48 hours *Pyridium as needed Remember this medication will turn your urine [place]. This is normal but it will stain what ever it gets on *You should not use Pyridium for more than 48 hours. If so , follow up with your primary physician to review urine culture and ensure that antibiotic is adequate for infection *Be SURE to follow up anytime for new or worsening symptoms. AND in 48 hours for urine culture results AND in 10-14 days to repeat UA to ensure infection is resolved and blood no longer present *Be sure to let your PCP know that we sent urine cultures from the [facility] so they can follow up to ensure that you area the on the correct antibiotic Discharge Counseling Counseled pt/family regarding diagnosis, test results, medications/RX, home care, follow up needs Prescriptions Current Visit Scripts SULFAMETHOXAZOLE W/TRIMETHOPRI (Bactrim Ds Tab) 1 TABLET PO BID #20 TAB at 7825
[2017-07-17 15:55] LABS: HEMOGLOBIN 13.7 g/dL (12.2-16.2); LYMPH # 2.1 K/mm3 (0.7-4.5); LYMPH % 26.5 % (10-50.0)
[2017-07-17 17:34] LABS: URINE BILIRUBIN - DIPSTICK NEG (NEG); URINE BLOOD NEG (NEG)
[2017-07-17] MEDS ORDERED: BACTRIM DS 8001 TA1 PO (17:37)
[2017-07-17 17:42] VITALS: BP 131/92
== END 2017-07-17 17:42 | disposition home or self-care (01) ==
LOC: UTC 15:22
PROVIDERS: Nurse Practitioner
DX: N30.00 Acute cystitis without hematuria (principal); J45.909 Unspecified asthma, uncomplicated

== ENCOUNTER → 2017-07-20 | Outpatient (CLI) | payer OTHER, MEDICAID ==
[~2017-07-20] MED LIST changes: +BACTRIM DS 8001 TA1 PO; +MACROBID100 M3 PO
--- NOTE | 2017-07-21 14:37 | RADIOLOGY REPORT PS360 ---
MRI-UP EXT ANY JNT W/O-LT HISTORY: Pain in left shoulder with limited range of motion ACUTE PAIN OF LT SHOULDER ORDERING PHYSICIAN: NATALIA TESFAYE PATIENT AGE: 22 years COMPARISON: Radiograph of 06/27/2017 TECHNIQUE: Standard multiplanar multiecho sequences are performed without contrast. FINDINGS: There is mild thickening of the the supraspinatus tendon with slight increased T1 and T2 signal consistent with tendinopathy/tendinosis. No obvious tear of the supraspinatus tendon. The infraspinatus tendon, subscapularis, and teres minor tendons are intact. No evidence of labral tear. No fracture or dislocation. The bicipital tendon is in place. There is a small amount fluid in the coracoid region. IMPRESSION: 1. No evidence of rotator cuff tear. 2. Mild tendinopathy/tendinosis of the supraspinatus tendon. 3. Small amount fluid in subcoracoid region consistent with mild bursitis
== END ==
LOC: RAD 08:42
DX: M25.512 Pain in left shoulder (principal)